=== PATIENT | female | born 1935 | race African-American/Black ===

== ENCOUNTER 2020-12-09 18:15 | Inpatient (IN) | payer BC, MEDICARE ==
[~2020-12-09] VITALS: Ht 157.5 cm; Wt 72.1 kg
[~2020-12-09 18:15] MED LIST: LISI-130 PO; LOSA-73 PO; PSYL3.4P PO
--- NOTE | 2020-12-09 21:16 | ED.ADGEN ---
Past Medical History Past Medical History: CVA, High Cholesterol, Hypertension Past Surgical History: Cholecystectomy, Tonsillectomy Smoking Status: Former Smoker Alcohol Use: None Drug Use: None General Adult EDM: Chief Complaint: ABDOMINAL PAIN HPI: HPI: Patient is a 85 year old female coming in for epigastric abdominal pain and vomiting. Patient states she vomited stomach acid but denies any bilious content. States she had a normal bowel movement this morning. Patient states she last ate around 11:30 AM, pain started suddenly at around 3 PM and has gotten worse. Describes the pain as sharp and nonradiating. Has not taken anything for the pain. Denies any fevers or cough, chest pain, or changes with urination. Patient is a both for [employer]. Has a history of an open cholecystectomy. Denies any prior history of bowel obstructions or GERD. Review of Systems: Review of Systems: All other systems within normal limits except for as noted in the HPI Current Medications: Current Medications Medications (Trade) Dose Ordered Sig/Amy Start Time Stop Time Status Last Admin Dose Admin Fentanyl Citrate (Fentanyl 2ml Vial) 75 mcg 1X ONCE 12/09/20 23:00 12/09/20 23:01 DC 12/09/20 23:28 75 MCG Info (CONTRAST GIVEN -- Rx MONITORING) 1 each PRN DAILY PRN 12/09/20 22:45 12/11/20 22:44 Iohexol (Omnipaque 300 Mg/ml) 75 ml 1X ONCE 12/09/20 23:00 12/09/20 23:01 DC 12/09/20 23:12 75 ML Multi-Ingredient Mouthwash/Gargle (Gi Cocktail) 20 ml 1X ONCE 12/09/20 21:30 12/09/20 21:31 DC 12/09/20 21:39 20 ML Ondansetron HCl (Zofran) 4 mg 1X ONCE 12/09/20 21:30 12/09/20 21:31 DC 12/09/20 21:38 4 MG Allergies: Allergies: Allergies Coded Allergies Type Severity Reaction Last Updated Verified Penicillins Allergy Intermediate 01/12/18 No influenza virus vaccine, specific Allergy Intermediate 01/12/18 No Physical Exam: PE: Constitutional: Well developed, well nourished, no acute distress, non-toxic appearance. [] HENT: Normocephalic, atraumatic, bilateral external ears normal, nose normal. [] Eyes: PERRLA, conjunctiva normal, no discharge. [] Neck: No rigidity, supple, no stridor. [] Cardiovascular: Regular rate and rhythm, brisk cap refill [] Lungs & Thorax: Non labored symmetric respirations, no tachypnea or respiratory distress [] Abdomen: Soft, nondistended, epigastric tenderness without guarding or rebound. Open cholecystectomy surgical scar in right upper quadrant without signs of hernia. Skin: Warm, dry, no erythema, no rash. [] Back: Unremarkable Extremities: No deformities, range of motion grossly intact, no lower extremity edema [] Neurologic: Alert and oriented X 3, no focal deficits noted. [] Psychologic: Affect normal, judgement normal, mood normal. [] Current Patient Data: Labs: Laboratory Tests Test 12/09/20 21:12 12/09/20 21:53 Urine Collection Type Void Urine Color Yellow Urine Clarity Clear Urine pH 6.0 (<5.0-8.0) Urine Specific [place] 1.010 (1.000-1.030) Urine Protein Negative mg/dL (NEG-TRACE) Urine Glucose (UA) Negative mg/dL (NEG) Urine Ketones (Stick) Negative mg/dL (NEG) Urine Blood Negative (NEG) Urine Nitrite Negative (NEG) Urine Bilirubin Negative (NEG) Urine Urobilinogen Dipstick 0.2 mg/dL (0.2 mg/dL) Urine Leukocyte Esterase Trace (NEG) Urine RBC Occ /HPF (0-2) Urine WBC 1-4 /HPF (0-4) Urine Squamous Epithelial Cells Many /LPF Urine Bacteria Moderate /HPF (0-FEW) Urine Mucus Slight /LPF White Blood Count 8.1 x10^3/uL (4.0-11.0) Red Blood Count 4.23 x10^6/uL (3.50-5.40) Hemoglobin 13.2 g/dL (12.0-15.5) Hematocrit 38.9 % (36.0-47.0) Mean Corpuscular Volume 92 fL (79-100) Mean Corpuscular Hemoglobin 31 pg (25-35) Mean Corpuscular Hemoglobin Concent 34 g/dL (31-37) Red Cell Distribution Width 13.9 % (11.5-14.5) Platelet Count 132 x10^3/uL (140-400) L Neutrophils (%) (Auto) 91 % (31-73) H Lymphocytes (%) (Auto) 7 % (24-48) L Monocytes (%) (Auto) 2 % (0-9) Eosinophils (%) (Auto) 0 % (0-3) Basophils (%) (Auto) 1 % (0-3) Neutrophils # (Auto) 7.3 x10^3/uL (1.8-7.7) Lymphocytes # (Auto) 0.5 x10^3/uL (1.0-4.8) L Monocytes # (Auto) 0.2 x10^3/uL (0.0-1.1) Eosinophils # (Auto) 0.0 x10^3/uL (0.0-0.7) Basophils # (Auto) 0.0 x10^3/uL (0.0-0.2) Segmented Neutrophils % 94 % (35-66) H Band Neutrophils % 3 % (0-9) Lymphocytes % 3 % (24-48) L Platelet Estimate Decreased (ADEQUATE) Sodium Level 138 mmol/L (136-145) Potassium Level 3.5 mmol/L (3.5-5.1) Chloride Level 102 mmol/L (98-107) Carbon Dioxide Level 26 mmol/L (21-32) Anion Gap 10 (6-14) Blood Urea Nitrogen 12 mg/dL (7-20) Creatinine 1.0 mg/dL (0.6-1.0) Estimated GFR (Cockcroft-Gault) 63.5 BUN/Creatinine Ratio 12 (6-20) Glucose Level 138 mg/dL (70-99) H Lactic Acid Level 1.8 mmol/L (0.4-2.0) Calcium Level 9.4 mg/dL (8.5-10.1) Total Bilirubin 0.4 mg/dL (0.2-1.0) Aspartate Amino Transferase (AST) 18 U/L (15-37) Alanine Aminotransferase (ALT) 20 U/L (14-59) Alkaline Phosphatase 58 U/L (46-116) Troponin I Quantitative 0.060 ng/mL (0.000-0.055) Total Protein 7.7 g/dL (6.4-8.2) Albumin 4.1 g/dL (3.4-5.0) Albumin/Globulin Ratio 1.1 (1.0-1.7) Lipase 101 U/L (73-393) Laboratory Tests 12/09/20 21:53 Laboratory Tests 12/09/20 21:53 Vital Signs: Vital Signs Date Time Temp Pulse Resp B/P (MAP) Pulse Ox O2 Delivery O2 Flow Rate FiO2 12/09/20 23:28 23 98 Room Air 12/09/20 20:44 98.7 86 218/88 (86) 98.7 EKG: EKG: Sinus rhythm, indeterminate axis, right bundle branch block, heart rate 90 bpm, no ST elevation or depression. [] Heart Score: C/O Chest Pain: No HEART Score for Chest Pain: HEART Score for Chest Pain Response (Comments) Value History Slighlty/Non-Suspicious 0 ECG Nonspecific Repolarizatio 1 Age > 65 2 Risk Factors 1 or 2 Risk Factors 1 Troponin >1-<3x Normal Limit 1 Total 5 Risk Factors: Risk Factors: DM, Current or recent (<one month) smoker, HTN, HLP, family history of CAD, obesity. Risk Scores: Score 0 - 3: 2.5% MACE over next 6 weeks - Discharge Home Score 4 - 6: 20.3% MACE over next 6 weeks - Admit for Clinical Observation Score 7 - 10: 72.7% MACE over next 6 weeks - Early Invasive Strategies Radiology/Procedures: Radiology/Procedures: [facility] [address] [place] [address] IMAGING REPORT Signed PATIENT: OMAR LYON ACCOUNT: [id number] : 1935 LOCATION: ER AGE: 85 SEX: F EXAM STATUS: REG ER ORD. PHYSICIAN: LINDA CROOKS MD REASON: vomiting, upper abd pain, OMNI 300, 75 ML IV PROCEDURE: CT ABD PELV W/ IV CONTRST ONLY Exam: CT abdomen/pelvis with intravenous contrast Indication: Vomiting and upper abdominal pain Comparison: None Technique: Helical CT imaging performed of the abdomen and pelvis after the intravenous administration of 75 mL Omnipaque 300 contrast. Sagittal and coronal reformats were obtained. One or more of the following individualized dose reduction techniques were utilized for this examination: 1. Automated exposure control 2. Adjustment of the mA and/or kV according to patient size 3. Use of iterative reconstruction technique. Findings: Lower chest: There is unchanged. Mm nodule in the right lower lobe (image 8, series 2). The heart is normal in size. There are mitral annulus calcifications. Liver: Normal. Gallbladder/Biliary Tree: Gallbladder is surgically absent. The common bile duct is prominent but tapers distally. No intrahepatic biliary duct dilatation. Pancreas: Normal. Spleen: Normal. Adrenal Glands: Normal. Kidneys/Ureters/Bladder: Kidneys are normal in size and enhance symmetrically. There is a 1 cm simple cyst in the superior right renal pole and a subcentimeter hypodensity in the left kidney. No hydronephrosis. Ureters are normal. There is a bladder diverticulum on the right. Reproductive Organs: The uterus is present. No adnexal mass. Stomach, small bowel, and colon: Stomach is normal. There are abnormal dilated loops of small bowel in the right hemiabdomen measuring up to 3.4 cm with wall thickening and surrounding inflammation. The terminal ileum is predominantly decompressed wall thickening. Possible transition point in the right mid abdomen (image 36 and 47, series 2). No pneumatosis.. There is fecal material into the distal small bowel. The colon right hemicolon is normal in caliber. Left hemicolon is predominantly decompressed. There is scattered colonic diverticulosis. Vasculature: No aortic aneurysm. There is moderate calcified aortoiliac a therosclerosis. Lymph Nodes: No lymphadenopathy. Peritoneum and retroperitoneum: There is trace ascites. No free air. Bones: No acute osseous abnormality. Mild degenerative disc disease in the lower lumbar spine. Mild osteoarthrosis hips. Other: Unchanged small fat-containing umbilical hernia. Impression: 1. Small bowel obstruction with possible transition point in the distal ileum. Minimal ascites. No free air or pneumatosis 2. Other chronic unchanged findings as above. Electronically signed by: Linda Castano MD (12/09/2020 11:32 PM) [id number] DICTATED and SIGNED BY: LINDA CASTANO MD DATE: 12/09/20 [id number] [] Course & Med Decision Making: Course & Med Decision Making Pertinent Labs and Imaging studies reviewed. (See chart for details) Patient made n.p.o. and discussed with surgeon Dr. Garza. Requesting NG tube. Multiple attempts at NG tube placement by nursing staff were unsuccessful, KUB shows looping of the NG tube. Patient refusing any further attempts. [] Dragon Disclaimer: Dragon Disclaimer: This electronic medical record was generated, in whole or in part, using a voice recognition dictation system. Departure Departure Impression: Primary Impression: SBO (small bowel obstruction) Disposition: ADMITTED INPATIENT Admitting Physician: MARLENE Condition: STABLE Referrals: MORE MEDLEY D.O. (PCP) LINDA CROOKS MD Dec 09, 2020 21:16
[2020-12-09 21:20] LABS: BILIRUBIN,URINE NEGATIVE (NEG); CLARITY,URINE CLEAR; COLOR,URINE YELLOW; NITRITE,URINE NEGATIVE (NEG); PROTEIN,URINE NEGATIVE (NEG-TRACE); UROBILINOGEN,URINE 0.2 mg/dL (0.2 mg/dL)
[2020-12-09] MEDS ORDERED: LIDO:MAALOX 1:1 20 ML SINGLE DOSE. SWSW ONE (21:30)
[2020-12-09] MEDS ORDERED: ONDANSETRON PF 4 MG/2 ML VIAL. IVP ONE (21:30)
[2020-12-09 21:39] LABS: BACTERIA,URINE MODERATE /HPF (0-FEW); RBC,URINE OCC /HPF (0-2)
[2020-12-09 22:09] LABS: BASO % 1 % (0-3); EOS % 0 % (0-3); HEMATOCRIT 38.9 % (36.0-47.0); HEMOGLOBIN 13.2 g/dL (12.0-15.5); LYMPH # 0.5 x10^3/uL (1.0-4.8); LYMPH % 7 % (24-48); MEAN CORPUSCULAR HEMOGLOBIN 31 pg (25-35); MEAN CORPUSCULAR HGB CONC 34 g/dL (31-37); MEAN CORPUSCULAR VOLUME 92 fL (79-100); MONO # 0.2 x10^3/uL (0.0-1.1); MONO % 2 % (0-9); NEUT # 7.3 x10^3/uL (1.8-7.7); NEUT % 91 % (31-73); PLATELET COUNT 132 x10^3/uL (140-400); RED BLOOD COUNT 4.23 x10^6/uL (3.50-5.40); RED CELL DISTRIBUTION WIDTH 13.9 % (11.5-14.5); WHITE BLOOD COUNT 8.1 x10^3/uL (4.0-11.0)
[2020-12-09 22:15] LABS: CALCIUM 9.4 mg/dL (8.5-10.1); GFR 63.5; POTASSIUM 3.5 mmol/L (3.5-5.1)
[2020-12-09 22:21] LABS: ALBUMIN 4.1 g/dL (3.4-5.0); ALBUMIN/GLOBULIN RATIO 1.1 (1.0-1.7); TOTAL BILIRUBIN 0.4 mg/dL (0.2-1.0); TOTAL PROTEIN 7.7 g/dL (6.4-8.2)
[2020-12-09] MEDS ORDERED: CONTRAST GIVEN. MC PRN (22:45)
[2020-12-09] MEDS ORDERED: IOHEXOL 300 MG/ML 100ML VIAL. IV ONE (23:00)
[2020-12-09] MEDS ORDERED: fentaNYL PF VIAL 100 MCG/2 ML VIAL IVP ONE (23:00)
--- NOTE | 2020-12-09 23:34 | RAD ---
Exam: CT abdomen/pelvis with intravenous contrast Indication: Vomiting and upper abdominal pain Comparison: None Technique: Helical CT imaging performed of the abdomen and pelvis after the intravenous administratio n of 75 mL Omnipaque 300 contrast. Sagittal and coronal reformats were obtained. One or more of the following individualized dose reduction techniques were utilized for this examinat ion: 1. Automated exposure control 2. Adjustment of the mA and/or kV according to patient size 3. Use of iterative reconstruction technique. Findings: Lower chest: There is unchanged. Mm nodule in the right lower lobe (image 8, series 2). The heart is normal in size. There are mitral annulus calcifications. Liver: Normal. Gallbladder/Biliary Tree: Gallbladder is surgically absent. The common bile duct is prominent but tap ers distally. No intrahepatic biliary duct dilatation. Pancreas: Normal. Spleen: Normal. Adrenal Glands: Normal. Kidneys/Ureters/Bladder: Kidneys are normal in size and enhance symmetrically. There is a 1 cm simple cyst in the superior right renal pole and a subcentimeter hypodensity in the left kidney. No hydrone phrosis. Ureters are normal. There is a bladder diverticulum on the right. Reproductive Organs: The uterus is present. No adnexal mass. Stomach, small bowel, and colon: Stomach is normal. There are abnormal dilated loops of small bowel i n the right hemiabdomen measuring up to 3.4 cm with wall thickening and surrounding inflammation. The terminal ileum is predominantly decompressed wall thickening. Possible transition point in the right mid abdomen (image 36 and 47, series 2). No pneumatosis.. There is fecal material into the distal sm all bowel. The colon right hemicolon is normal in caliber. Left hemicolon is predominantly decompress ed. There is scattered colonic diverticulosis. Vasculature: No aortic aneurysm. There is moderate calcified aortoiliac atherosclerosis. Lymph Nodes: No lymphadenopathy. Peritoneum and retroperitoneum: There is trace ascites. No free air. Bones: No acute osseous abnormality. Mild degenerative disc disease in the lower lumbar spine. Mild o steoarthrosis hips. Other: Unchanged small fat-containing umbilical hernia. Impression: 1. Small bowel obstruction with possible transition point in the distal ileum. Minimal ascites. No f ree air or pneumatosis 2. Other chronic unchanged findings as above. Electronically signed by: Linda Castano MD (12/09/2020 11:32 PM) [id number]
[2020-12-10] MEDS ORDERED: ACETAMINOPHEN 325 MG TABLET. PO PRN (00:30)
[2020-12-10] MEDS ORDERED: ONDANSETRON PF 4 MG/2 ML VIAL. IVP PRN (00:30)
--- NOTE | 2020-12-10 01:34 | EKG ---
[facility] [address] [place] [address] Test Date: 2020-12-09 Test Time: 21:23:05 Pat Name: OMAR LYON Department: Room: Gender: F [employer]: : 1935 Requested By: NEELA CROOKS Order Number: [id number] Reading MD: Measurements Intervals [place] Rate: 91 P: -24 WA: 142 QRS: -82 QRSD: 112 T: 47 QT: 374 QTc: 462 Interpretive Statements No previous ECG available for comparison
[2020-12-10] MEDS: IV NORMAL SALINE 1000ML BAG 1,000 ML IV SCH ×2 (01:47→14:20)
[2020-12-10 03:23] LABS: % BANDS 3 % (0-9); % LYMPHS 3 % (24-48); % SEGS 94 % (35-66)
[2020-12-10 03:24] LABS: PLT ESTIMATE DECREASED (ADEQUATE)
[2020-12-10] MEDS: fentaNYL PF VIAL 100 MCG/2 ML VIAL IVP PRN ×2 (04:15→09:47)
--- NOTE | 2020-12-10 05:54 | RAD ---
EXAM: XR ABDOMEN 1V 12/10/2020 2:30 AM CLINICAL INDICATION: NG tube placement COMPARISON: Chest radiograph 05/14/2016 The heart and mediastinum are normal. Lung bases are clear. Mild gaseous distention of bowel in the r ight upper quadrant. FINDINGS: An NG tube projects over the mid chest, likely coiled in the esophagus with the tip not vi sualized. Lung bases are clear. There is mild gaseous distention of bowel in the right upper quadrant . Heart is normal in size IMPRESSION: Coiled NG tube projecting over the chest, likely within the midesophagus but could poten tially be in the trachea. Recommend repositioning the tube and then confirming appropriate placement before use. Electronically signed by: Linda Castano MD (12/10/2020 5:51 AM) [id number]
--- NOTE | 2020-12-10 07:39 | PDOC1 ---
History and Physical Date of Admission Date of Admission DATE: 12/10/20 TIME: 07:22 Identification/Chief Complaint Chief Complaint Abdominal pain, nausea, vomiting Source Source: Chart review, Patient History of Present Illness History of Present Illness Patient is 85-year-old female with past medical history HTN, presents to the ED with complaints of abdominal pain, nausea, and vomiting. She reports epigastric abdominal pain, 10/10. She denies any associated fever, chest pain, or diarrh ea. States her last bowel movement was yesterday and she last ate yesterday morning. She has received both of reflexive COVID-19 vaccines. Labs on admission showed platelets 132, CBG 138, troponin 0.060, with repeat troponin 0.208. CT abdomen/pelvis showed small bowel obstruction with possible transition point in the distal ileum. She had NG tube placed in the ED. Will admit patient for medical management. Past Medical History Cardiovascular: HTN Pulmonary: No pertinent hx Endocrine: No pertinent hx Past Surgical History Past Surgical History: Cholecystectomy, Tonsillectomy Family History Family History: Hypertension Social History Smoke: No ALCOHOL: none Drugs: None Current Problem List Problem List Problems Medical Problems: (1) SBO (small bowel obstruction) Status: Acute Current Medications Current Medications Current Medications Ondansetron HCl (Zofran) 4 mg 1X ONCE IVP Last administered on 12/09/20at 21:38; Start 12/09/20 at 21:30; Stop 12/09/20 at 21:31; Status DC Multi-Ingredient Mouthwash/Gargle (Gi Cocktail) 20 ml 1X ONCE SWSW Last administered on 12/09/20at 21:39; Start 12/09/20 at 21:30; Stop 12/09/20 at 21:31; Status DC Fentanyl Citrate (Fentanyl 2ml Vial) 75 mcg 1X ONCE IVP Last administered on 12/09/20at 23:28; Start 12/09/20 at 23:00; Stop 12/09/20 at 23:01; Status DC Iohexol (Omnipaque 300 Mg/ml) 75 ml 1X ONCE IV Last administered on 12/09/20at 23:12; Start 12/09/20 at 23:00; Stop 12/09/20 at 23:01; Status DC Info (CONTRAST GIVEN -- Rx MONITORING) 1 each PRN DAILY PRN MC SEE COMMENTS; Start 12/09/20 at 22:45; Stop 12/11/20 at 22:44 Ondansetron HCl (Zofran) 4 mg PRN Q8HRS PRN IVP NAUSEA/VOMITING 1ST CHOICE Last administered on 12/10/20at 04:15; Start 12/10/20 at 00:30; Stop 12/11/20 at 00:29 Fentanyl Citrate (Fentanyl 2ml Vial) 50 mcg PRN Q1HR PRN IVP SEVERE PAIN 7-10 Last administered on 12/10/20at 04:15; Start 12/10/20 at 00:30; Stop 12/11/20 at 00:29 Sodium Chloride 1,000 ml @ 75 mls/hr [id number] IV Last administered on 12/10/20at 01:47; Start 12/10/20 at 01:00; Stop 12/11/20 at 00:59 Acetaminophen (Tylenol) 650 mg PRN Q4HRS PRN PO FEVER > 100.3'F; Start 12/10/20 at 00:30; Stop 12/11/20 at 00:29 Active Scripts Active Losartan Potassium 50 Mg Tablet 50 Mg PO DAILY 30 Days TO REPLACE LISINOPRIL Metamucil Fiber Singles Packet (Psyllium Husk/Aspartame) 3.4 Gm Powd.pack 1 Pkt PO DAILY 30 Days Allergies Allergies: Coded Allergies: Penicillins (Unverified Allergy, Intermediate, 01/12/18) influenza virus vaccine, specific (Unverified Allergy, Intermediate, 01/12/18) ROS Review of System GENERAL: No history of weight change, weakness or fevers. SKIN: No bruising, hair changes or rashes. EYES: No blurred, double or loss of vision. NOSE AND THROAT: No history of nosebleeds, hoarseness or sore throat. HEART: Denies chest pain, denies palpitations. LUNGS: Denies cough, hemoptysis, wheezing or shortness of breath. GASTROINTESTINAL: Abdominal pain, nausea, vomiting. Denies diarrhea. GENITOURINARY: Denies dysuria, frequency, urgency, hematuria. NEUROLOGIC: Denies history of numbness, tingling, tremor or weakness. PSYCHIATRIC: Denies anxiety, denies depression. ENDOCRINE: No history of heat or cold intolerance, polyuria or polydipsia. EXTREMITIES: Denies muscle weakness, joint pain, pain on walking or stiffness. Physical Exam Physical Exam General: Alert, Oriented X3, Cooperative, mild distress HEENT: PERRLA, EOMI. NG tube in place. Lungs: Clear to auscultation, Normal air movement Heart: RRR, no murmurs Cardiovascular: S1, S2 Abdomen: Decreased bowel sounds, Soft, epigastric tenderness to palpation Extremities: No clubbing, No cyanosis Skin: No rashes, No significant lesion Neuro: Normal speech, Normal tone, Sensation intact Psych/Mental Status: Mental status NL, Mood NL Vitals Vitals Vital Signs Date Time Temp Pulse Resp B/P (MAP) Pulse Ox O2 Delivery O2 Flow Rate FiO2 12/10/20 05:28 88 181/77 (111) 96 Room Air 12/10/20 04:15 20 12/09/20 20:44 98.7 98.7 Labs Labs Laboratory Tests Test 12/09/20 21:12 12/09/20 21:53 12/10/20 00:45 12/10/20 04:40 Urine Collection Type Void Urine Color Yellow Urine Clarity Clear Urine pH 6.0 (<5.0-8.0) Urine Specific [place] 1.010 (1.000-1.030) Urine Protein Negative mg/dL (NEG-TRACE) Urine Glucose (UA) Negative mg/dL (NEG) Urine Ketones (Stick) Negative mg/dL (NEG) Urine Blood Negative (NEG) Urine Nitrite Negative (NEG) Urine Bilirubin Negative (NEG) Urine Urobilinogen Dipstick 0.2 mg/dL (0.2 mg/dL) Urine Leukocyte Esterase Trace (NEG) Urine RBC Occ /HPF (0-2) Urine WBC 1-4 /HPF (0-4) Urine Squamous Epithelial Cells Many /LPF Urine Bacteria Moderate /HPF (0-FEW) Urine Mucus Slight /LPF White Blood Count 8.1 x10^3/uL (4.0-11.0) Red Blood Count 4.23 x10^6/uL (3.50-5.40) Hemoglobin 13.2 g/dL (12.0-15.5) Hematocrit 38.9 % (36.0-47.0) Mean Corpuscular Volume 92 fL (79-100) Mean Corpuscular Hemoglobin 31 pg (25-35) Mean Corpuscular Hemoglobin Concent 34 g/dL (31-37) Red Cell Distribution Width 13.9 % (11.5-14.5) Platelet Count 132 x10^3/uL (140-400) Neutrophils (%) (Auto) 91 % (31-73) Lymphocytes (%) (Auto) 7 % (24-48) Monocytes (%) (Auto) 2 % (0-9) Eosinophils (%) (Auto) 0 % (0-3) Basophils (%) (Auto) 1 % (0-3) Neutrophils # (Auto) 7.3 x10^3/uL (1.8-7.7) Lymphocytes # (Auto) 0.5 x10^3/uL (1.0-4.8) Monocytes # (Auto) 0.2 x10^3/uL (0.0-1.1) Eosinophils # (Auto) 0.0 x10^3/uL (0.0-0.7) Basophils # (Auto) 0.0 x10^3/uL (0.0-0.2) Segmented Neutrophils % 94 % (35-66) Band Neutrophils % 3 % (0-9) Lymphocytes % 3 % (24-48) Platelet Estimate Decreased (ADEQUATE) Sodium Level 138 mmol/L (136-145) Potassium Level 3.5 mmol/L (3.5-5.1) Chloride Level 102 mmol/L (98-107) Carbon Dioxide Level 26 mmol/L (21-32) Anion Gap 10 (6-14) Blood Urea Nitrogen 12 mg/dL (7-20) Creatinine 1.0 mg/dL (0.6-1.0) Estimated GFR (Cockcroft-Gault) 63.5 BUN/Creatinine Ratio 12 (6-20) Glucose Level 138 mg/dL (70-99) Lactic Acid Level 1.8 mmol/L (0.4-2.0) Calcium Level 9.4 mg/dL (8.5-10.1) Total Bilirubin 0.4 mg/dL (0.2-1.0) Aspartate Amino Transf (AST/SGOT) 18 U/L (15-37) Alanine Aminotransferase (ALT/SGPT) 20 U/L (14-59) Alkaline Phosphatase 58 U/L (46-116) Troponin I Quantitative 0.060 ng/mL (0.000-0.055) 0.208 ng/mL (0.000-0.055) Total Protein 7.7 g/dL (6.4-8.2) Albumin 4.1 g/dL (3.4-5.0) Albumin/Globulin Ratio 1.1 (1.0-1.7) Lipase 101 U/L (73-393) SARS-CoV-2 Antigen (Rapid) Negative (NEGATIVE) Laboratory Tests Test 12/09/20 21:12 12/09/20 21:53 12/10/20 00:45 12/10/20 04:40 Urine Collection Type Void Urine Color Yellow Urine Clarity Clear Urine pH 6.0 (<5.0-8.0) Urine Specific [place] 1.010 (1.000-1.030) Urine Protein Negative mg/dL (NEG-TRACE) Urine Glucose (UA) Negative mg/dL (NEG) Urine Ketones (Stick) Negative mg/dL (NEG) Urine Blood Negative (NEG) Urine Nitrite Negative (NEG) Urine Bilirubin Negative (NEG) Urine Urobilinogen Dipstick 0.2 mg/dL (0.2 mg/dL) Urine Leukocyte Esterase Trace (NEG) Urine RBC Occ /HPF (0-2) Urine WBC 1-4 /HPF (0-4) Urine Squamous Epithelial Cells Many /LPF Urine Bacteria Moderate /HPF (0-FEW) Urine Mucus Slight /LPF White Blood Count 8.1 x10^3/uL (4.0-11.0) Red Blood Count 4.23 x10^6/uL (3.50-5.40) Hemoglobin 13.2 g/dL (12.0-15.5) Hematocrit 38.9 % (36.0-47.0) Mean Corpuscular Volume 92 fL (79-100) Mean Corpuscular Hemoglobin 31 pg (25-35) Mean Corpuscular Hemoglobin Concent 34 g/dL (31-37) Red Cell Distribution Width 13.9 % (11.5-14.5) Platelet Count 132 x10^3/uL (140-400) Neutrophils (%) (Auto) 91 % (31-73) Lymphocytes (%) (Auto) 7 % (24-48) Monocytes (%) (Auto) 2 % (0-9) Eosinophils (%) (Auto) 0 % (0-3) Basophils (%) (Auto) 1 % (0-3) Neutrophils # (Auto) 7.3 x10^3/uL (1.8-7.7) Lymphocytes # (Auto) 0.5 x10^3/uL (1.0-4.8) Monocytes # (Auto) 0.2 x10^3/uL (0.0-1.1) Eosinophils # (Auto) 0.0 x10^3/uL (0.0-0.7) Basophils # (Auto) 0.0 x10^3/uL (0.0-0.2) Segmented Neutrophils % 94 % (35-66) Band Neutrophils % 3 % (0-9) Lymphocytes % 3 % (24-48) Platelet Estimate Decreased (ADEQUATE) Sodium Level 138 mmol/L (136-145) Potassium Level 3.5 mmol/L (3.5-5.1) Chloride Level 102 mmol/L (98-107) Carbon Dioxide Level 26 mmol/L (21-32) Anion Gap 10 (6-14) Blood Urea Nitrogen 12 mg/dL (7-20) Creatinine 1.0 mg/dL (0.6-1.0) Estimated GFR (Cockcroft-Gault) 63.5 BUN/Creatinine Ratio 12 (6-20) Glucose Level 138 mg/dL (70-99) Lactic Acid Level 1.8 mmol/L (0.4-2.0) Calcium Level 9.4 mg/dL (8.5-10.1) Total Bilirubin 0.4 mg/dL (0.2-1.0) Aspartate Amino Transf (AST/SGOT) 18 U/L (15-37) Alanine Aminotransferase (ALT/SGPT) 20 U/L (14-59) Alkaline Phosphatase 58 U/L (46-116) Troponin I Quantitative 0.060 ng/mL (0.000-0.055) 0.208 ng/mL (0.000-0.055) Total Protein 7.7 g/dL (6.4-8.2) Albumin 4.1 g/dL (3.4-5.0) Albumin/Globulin Ratio 1.1 (1.0-1.7) Lipase 101 U/L (73-393) SARS-CoV-2 Antigen (Rapid) Negative (NEGATIVE) Images Images PATIENT: OMAR LYON ACCOUNT: [id number] : 1935 LOCATION: ER AGE: 85 SEX: F EXAM STATUS: REG ER ORD. PHYSICIAN: NEELA CROOKS MD REASON: vomiting, upper abd pain, OMNI 300, 75 ML IV PROCEDURE: CT ABD PELV W/ IV CONTRST ONLY Exam: CT abdomen/pelvis with intravenous contrast Indication: Vomiting and upper abdominal pain Comparison: None Technique: Helical CT imaging performed of the abdomen and pelvis after the intravenous administration of 75 mL Omnipaque 300 contrast. Sagittal and coronal reformats were obtained. One or more of the following individualized dose reduction techniques were utilized for this examination: 1. Automated exposure control 2. Adjustment of the mA and/or kV according to patient size 3. Use of iterative reconstruction technique. Findings: Lower chest: There is unchanged. Mm nodule in the right lower lobe (image 8, series 2). The heart is normal in size. There are mitral annulus calcifications. Liver: Normal. Gallbladder/Biliary Tree: Gallbladder is surgically absent. The common bile duct is prominent but tapers distally. No intrahepatic biliary duct dilatation. Pancreas: Normal. Spleen: Normal. Adrenal Glands: Normal. Kidneys/Ureters/Bladder: Kidneys are normal in size and enhance symmetrically. There is a 1 cm simple cyst in the superior right renal pole and a subcentimeter hypodensity in the left kidney. No hydronephrosis. Ureters are normal. There is a bladder diverticulum on the right. Reproductive Organs: The uterus is present. No adnexal mass. Stomach, small bowel, and colon: Stomach is normal. There are abnormal dilated loops of small bowel in the right hemiabdomen measuring up to 3.4 cm with wall thickening and surrounding inflammation. The terminal ileum is predominantly decompressed wall thickening. Possible transition point in the right mid abdomen (image 36 and 47, series 2). No pneumatosis.. There is fecal material into the distal small bowel. The colon right hemicolon is normal in caliber. Left hemicolon is predominantly decompressed. There is scattered colonic diverticulosis. Vasculature: No aortic aneurysm. There is moderate calcified aortoiliac atherosclerosis. Lymph Nodes: No lymphadenopathy. Peritoneum and retroperitoneum: There is trace ascites. No free air. Bones: No acute osseous abnormality. Mild degenerative disc disease in the lower lumbar spine. Mild osteoarthrosis hips. Other: Unchanged small fat-containing umbilical hernia. Impression: 1. Small bowel obstruction with possible transition point in the distal ileum. Minimal ascites. No free air or pneumatosis 2. Other chronic unchanged findings as above. VTE Prophylaxis Ordered VTE Prophylaxis Devices: No VTE Pharmacological Prophylaxi: Yes Assessment/Plan Assessment/Plan SBO Elevated troponins Hypertensive urgency Hyperglycemia Plan: Consultation placed to general surgery NG tube placed in the ED Provide continuous IV fluids Bowel rest Initial troponin 0.060 with repeat 0.208; consultation placed to cardiology Will continue to trend troponin and obtain TTE; suspect elevated troponin secondary to hypertensive urgency and demand ischemia FEN - NPO; then advance diet as tolerated. PPX - Heparin FULL CODE Dispo - inpatient for above She names her goddaughter (Aundrea Samuel) as surrogate decision-maker Justifications for Admission Other Justification JERZY ALLEN MD Dec 10, 2020 07:39
--- NOTE | 2020-12-10 09:03 | PDOC2 ---
ARCHIE NULL ACCOUNT ADMINISTRATOR 12/10/20 0903: CONSULT Date of Consult Date of Consult DATE: 12/10/20 TIME: 08:59 Reason for Consult Reason for Consult: SBO Referring Physician Referring Physician: ER Identification/Chief Complaint Chief Complaint abdominal pain Source Source: Chart review, Patient History of Present Illness Reason for Visit: Some difficulty with memory Reports acute onset of pain to abdomen yesterday. Nausea. Reports typically has issues with diarrhea for many years, now with some constipation issues and taking laxatives at home. Does report some flatus this morning. Pain in abdomen is improved Attempted ng unsuccessful Past Medical History Cardiovascular: HTN Pulmonary: No pertinent hx Endocrine: No pertinent hx Past Surgical History Past Surgical History: Cholecystectomy, Tonsillectomy Family History Family History: Hypertension Social History No ALCOHOL: none Drugs: None Current Problem List Problem List Problems Medical Problems: (1) SBO (small bowel obstruction) Status: Acute Current Medications Current Medications Current Medications Ondansetron HCl (Zofran) 4 mg 1X ONCE IVP Last administered on 12/09/20at 21:38; Start 12/09/20 at 21:30; Stop 12/09/20 at 21:31; Status DC Multi-Ingredient Mouthwash/Gargle (Gi Cocktail) 20 ml 1X ONCE SWSW Last administered on 12/09/20at 21:39; Start 12/09/20 at 21:30; Stop 12/09/20 at 21:31; Status DC Fentanyl Citrate (Fentanyl 2ml Vial) 75 mcg 1X ONCE IVP Last administered on 12/09/20at 23:28; Start 12/09/20 at 23:00; Stop 12/09/20 at 23:01; Status DC Iohexol (Omnipaque 300 Mg/ml) 75 ml 1X ONCE IV Last administered on 12/09/20at 23:12; Start 12/09/20 at 23:00; Stop 12/09/20 at 23:01; Status DC Info (CONTRAST GIVEN -- Rx MONITORING) 1 each PRN DAILY PRN MC SEE COMMENTS; Start 12/09/20 at 22:45; Stop 12/11/20 at 22:44 Ondansetron HCl (Zofran) 4 mg PRN Q8HRS PRN IVP NAUSEA/VOMITING 1ST CHOICE Last administered on 12/10/20at 04:15; Start 12/10/20 at 00:30; Stop 12/11/20 at 00:29 Fentanyl Citrate (Fentanyl 2ml Vial) 50 mcg PRN Q1HR PRN IVP SEVERE PAIN 7-10 Last administered on 12/10/20at 04:15; Start 12/10/20 at 00:30; Stop 12/11/20 at 00:29 Sodium Chloride 1,000 ml @ 75 mls/hr [id number] IV Last administered on 12/10/20at 01:47; Start 12/10/20 at 01:00; Stop 12/11/20 at 00:59 Acetaminophen (Tylenol) 650 mg PRN Q4HRS PRN PO FEVER > 100.3'F; Start 12/10/20 at 00:30; Stop 12/11/20 at 00:29 Hydralazine HCl (Apresoline Inj) 10 mg PRN Q4HRS PRN IVP ELEVATED BP, SEE COMMENTS; Start 12/10/20 at 07:30 Active Scripts Active Losartan Potassium 50 Mg Tablet 50 Mg PO DAILY 30 Days TO REPLACE LISINOPRIL Metamucil Fiber Singles Packet (Psyllium Husk/Aspartame) 3.4 Gm Powd.pack 1 Pkt PO DAILY 30 Days Allergies Allergies: Coded Allergies: Penicillins (Unverified Allergy, Intermediate, 01/12/18) influenza virus vaccine, specific (Unverified Allergy, Intermediate, 01/12/18) ROS General: YES: Fatigue; No: Chills PSYCHOLOGICAL ROS: No: Anxiety, Depression Eyes: No Blurry vision, No Double vision HEENT: No: Heacaches, Hearing change Hematological and Lymphatic: No: Bleeding Problems, Blood Clots Respiratory: No: Cough, Shortness of breath Cardiovascular: No Chest Pain, No Palpitations Gastrointestinal: Yes Other (see hpi) Genitourinary: No Dysuria, No Hematuria Musculoskeletal: No Joint Pain, No Muscle Pain Neurological: No Impaired Coord/balance, No Numbness/Tingling Skin: No Pruritus, No Rash Physical Exam General: Alert, Cooperative, No acute distress HEENT: Atraumatic, PERRLA Lungs: Clear to auscultation, Normal air movement Heart: Regular rate, Normal S1, Normal S2 Abdomen: Soft, Other (ND, minimal TTP, amita scar ) Extremities: No clubbing, No cyanosis Skin: No rashes, No breakdown Neuro: Normal gait, Normal speech Psych/Mental Status: Mental status NL, Mood NL MUSCULOSKELETAL: No deformity, No swelling Vitals VITALS Vital Signs Date Time Temp Pulse Resp B/P (MAP) Pulse Ox O2 Delivery O2 Flow Rate FiO2 12/10/20 05:28 88 181/77 (111) 96 Room Air 12/10/20 04:15 20 12/09/20 20:44 98.7 98.7 Labs Labs Laboratory Tests Test 12/09/20 21:12 12/09/20 21:53 12/10/20 00:45 12/10/20 04:40 Urine Collection Type Void Urine Color Yellow Urine Clarity Clear Urine pH 6.0 (<5.0-8.0) Urine Specific [place] 1.010 (1.000-1.030) Urine Protein Negative mg/dL (NEG-TRACE) Urine Glucose (UA) Negative mg/dL (NEG) Urine Ketones (Stick) Negative mg/dL (NEG) Urine Blood Negative (NEG) Urine Nitrite Negative (NEG) Urine Bilirubin Negative (NEG) Urine Urobilinogen Dipstick 0.2 mg/dL (0.2 mg/dL) Urine Leukocyte Esterase Trace (NEG) Urine RBC Occ /HPF (0-2) Urine WBC 1-4 /HPF (0-4) Urine Squamous Epithelial Cells Many /LPF Urine Bacteria Moderate /HPF (0-FEW) Urine Mucus Slight /LPF White Blood Count 8.1 x10^3/uL (4.0-11.0) Red Blood Count 4.23 x10^6/uL (3.50-5.40) Hemoglobin 13.2 g/dL (12.0-15.5) Hematocrit 38.9 % (36.0-47.0) Mean Corpuscular Volume 92 fL (79-100) Mean Corpuscular Hemoglobin 31 pg (25-35) Mean Corpuscular Hemoglobin Concent 34 g/dL (31-37) Red Cell Distribution Width 13.9 % (11.5-14.5) Platelet Count 132 x10^3/uL (140-400) Neutrophils (%) (Auto) 91 % (31-73) Lymphocytes (%) (Auto) 7 % (24-48) Monocytes (%) (Auto) 2 % (0-9) Eosinophils (%) (Auto) 0 % (0-3) Basophils (%) (Auto) 1 % (0-3) Neutrophils # (Auto) 7.3 x10^3/uL (1.8-7.7) Lymphocytes # (Auto) 0.5 x10^3/uL (1.0-4.8) Monocytes # (Auto) 0.2 x10^3/uL (0.0-1.1) Eosinophils # (Auto) 0.0 x10^3/uL (0.0-0.7) Basophils # (Auto) 0.0 x10^3/uL (0.0-0.2) Segmented Neutrophils % 94 % (35-66) Band Neutrophils % 3 % (0-9) Lymphocytes % 3 % (24-48) Platelet Estimate Decreased (ADEQUATE) Sodium Level 138 mmol/L (136-145) Potassium Level 3.5 mmol/L (3.5-5.1) Chloride Level 102 mmol/L (98-107) Carbon Dioxide Level 26 mmol/L (21-32) Anion Gap 10 (6-14) Blood Urea Nitrogen 12 mg/dL (7-20) Creatinine 1.0 mg/dL (0.6-1.0) Estimated GFR (Cockcroft-Gault) 63.5 BUN/Creatinine Ratio 12 (6-20) Glucose Level 138 mg/dL (70-99) Lactic Acid Level 1.8 mmol/L (0.4-2.0) Calcium Level 9.4 mg/dL (8.5-10.1) Total Bilirubin 0.4 mg/dL (0.2-1.0) Aspartate Amino Transf (AST/SGOT) 18 U/L (15-37) Alanine Aminotransferase (ALT/SGPT) 20 U/L (14-59) Alkaline Phosphatase 58 U/L (46-116) Troponin I Quantitative 0.060 ng/mL (0.000-0.055) 0.208 ng/mL (0.000-0.055) Total Protein 7.7 g/dL (6.4-8.2) Albumin 4.1 g/dL (3.4-5.0) Albumin/Globulin Ratio 1.1 (1.0-1.7) Lipase 101 U/L (73-393) SARS-CoV-2 Antigen (Rapid) Negative (NEGATIVE) Laboratory Tests Test 12/09/20 21:12 12/09/20 21:53 12/10/20 00:45 12/10/20 04:40 Urine Collection Type Void Urine Color Yellow Urine Clarity Clear Urine pH 6.0 (<5.0-8.0) Urine Specific [place] 1.010 (1.000-1.030) Urine Protein Negative mg/dL (NEG-TRACE) Urine Glucose (UA) Negative mg/dL (NEG) Urine Ketones (Stick) Negative mg/dL (NEG) Urine Blood Negative (NEG) Urine Nitrite Negative (NEG) Urine Bilirubin Negative (NEG) Urine Urobilinogen Dipstick 0.2 mg/dL (0.2 mg/dL) Urine Leukocyte Esterase Trace (NEG) Urine RBC Occ /HPF (0-2) Urine WBC 1-4 /HPF (0-4) Urine Squamous Epithelial Cells Many /LPF Urine Bacteria Moderate /HPF (0-FEW) Urine Mucus Slight /LPF White Blood Count 8.1 x10^3/uL (4.0-11.0) Red Blood Count 4.23 x10^6/uL (3.50-5.40) Hemoglobin 13.2 g/dL (12.0-15.5) Hematocrit 38.9 % (36.0-47.0) Mean Corpuscular Volume 92 fL (79-100) Mean Corpuscular Hemoglobin 31 pg (25-35) Mean Corpuscular Hemoglobin Concent 34 g/dL (31-37) Red Cell Distribution Width 13.9 % (11.5-14.5) Platelet Count 132 x10^3/uL (140-400) Neutrophils (%) (Auto) 91 % (31-73) Lymphocytes (%) (Auto) 7 % (24-48) Monocytes (%) (Auto) 2 % (0-9) Eosinophils (%) (Auto) 0 % (0-3) Basophils (%) (Auto) 1 % (0-3) Neutrophils # (Auto) 7.3 x10^3/uL (1.8-7.7) Lymphocytes # (Auto) 0.5 x10^3/uL (1.0-4.8) Monocytes # (Auto) 0.2 x10^3/uL (0.0-1.1) Eosinophils # (Auto) 0.0 x10^3/uL (0.0-0.7) Basophils # (Auto) 0.0 x10^3/uL (0.0-0.2) Segmented Neutrophils % 94 % (35-66) Band Neutrophils % 3 % (0-9) Lymphocytes % 3 % (24-48) Platelet Estimate Decreased (ADEQUATE) Sodium Level 138 mmol/L (136-145) Potassium Level 3.5 mmol/L (3.5-5.1) Chloride Level 102 mmol/L (98-107) Carbon Dioxide Level 26 mmol/L (21-32) Anion Gap 10 (6-14) Blood Urea Nitrogen 12 mg/dL (7-20) Creatinine 1.0 mg/dL (0.6-1.0) Estimated GFR (Cockcroft-Gault) 63.5 BUN/Creatinine Ratio 12 (6-20) Glucose Level 138 mg/dL (70-99) Lactic Acid Level 1.8 mmol/L (0.4-2.0) Calcium Level 9.4 mg/dL (8.5-10.1) Total Bilirubin 0.4 mg/dL (0.2-1.0) Aspartate Amino Transf (AST/SGOT) 18 U/L (15-37) Alanine Aminotransferase (ALT/SGPT) 20 U/L (14-59) Alkaline Phosphatase 58 U/L (46-116) Troponin I Quantitative 0.060 ng/mL (0.000-0.055) 0.208 ng/mL (0.000-0.055) Total Protein 7.7 g/dL (6.4-8.2) Albumin 4.1 g/dL (3.4-5.0) Albumin/Globulin Ratio 1.1 (1.0-1.7) Lipase 101 U/L (73-393) SARS-CoV-2 Antigen (Rapid) Negative (NEGATIVE) Images Images SBO vs ileus--bowel rest, repeat xr in AM cardiac eval, elevated troponin BELINDA GUAJARDO MD 12/10/20 1313: CONSULT Assessment/Plan Assessment/Plan Pt seen and examined. Agree with Karen Null's note Pt has now gotten NGT with min output, but feels better abd soft, NTTP cont NGT and reevaluate in AM. Thanks for consult! ARCHIE NULL APRN Dec 10, 2020 09:03 BELINDA GUAJARDO MD Dec 10, 2020 13:13
[2020-12-10] MEDS: hydrALAZINE 20 MG/ML VIAL. IVP PRN ×2 (09:49→18:57)
[2020-12-10] MEDS ORDERED: MAG HYDROX/ALUMINUM HYD/SIMETH 30 ML ORAL.SUSP PO PRN (10:15)
[2020-12-10] MEDS ORDERED: MAGNESIUM HYDROXIDE 2,400 MG/30 ML ORAL.SUSP. PO PRN (10:15)
[2020-12-10] MEDS ORDERED: ZOLPIDEM 5 MG TABLET. PO PRN (10:15)
--- NOTE | 2020-12-10 11:37 | PDOC2 ---
AYE MCKINLEY BUSINESS OPERATIONS ANALYST 12/10/20 1137: CARDIAC CONSULT DATE OF CONSULT Date of Consult DATE: 12/10/20 TIME: 11:29 REASON FOR CONSULT Reason for Consult: Elevated troponin REFERRING PHYSICIAN Referring Physician: Dr. Cervantes SOURCE Source: Chart review, Patient HISTORY OF PRESENT ILLNESS HISTORY OF PRESENT ILLNESS This is an 85 yo female who presented secondary to abdominal pain and nausea/vomiting. CT abdomen/pelvis with concerns for SBO. Troponin noted to be elevated, which prompts this consult. Patient denies any chest pain, palpitations, dizziness, diaphoresis, or SOA. PAST MEDICAL HISTORY Cardiovascular: HTN, Hyperlipidemia CENTRAL NERVOUS SYSTEM: CVA Musculoskeletal: Osteoarthritis PAST SURGICAL HISTORY Past Surgical History: Cholecystectomy, Tonsillectomy FAMILY HISTORY Family History: Hypertension SOCIAL HISTORY Smoke: No ALCOHOL: none Drugs: None CURRENT MEDICATIONS CURRENT MEDICATIONS Current Medications Medications (Trade) Dose Ordered Sig/Amy Route PRN Reason Start Time Stop Time Status Last Admin Dose Admin Ondansetron HCl (Zofran) 4 mg 1X ONCE IVP 12/09/20 21:30 12/09/20 21:31 DC 12/09/20 21:38 Multi-Ingredient Mouthwash/Gargle (Gi Cocktail) 20 ml 1X ONCE SWSW 12/09/20 21:30 12/09/20 21:31 DC 12/09/20 21:39 Fentanyl Citrate (Fentanyl 2ml Vial) 75 mcg 1X ONCE IVP 12/09/20 23:00 12/09/20 23:01 DC 12/09/20 23:28 Iohexol (Omnipaque 300 Mg/ml) 75 ml 1X ONCE IV 12/09/20 23:00 12/09/20 23:01 DC 12/09/20 23:12 Ondansetron HCl (Zofran) 4 mg PRN Q8HRS PRN IVP NAUSEA/VOMITING 1ST CHOICE 12/10/20 00:30 12/11/20 00:29 12/10/20 04:15 Fentanyl Citrate (Fentanyl 2ml Vial) 50 mcg PRN Q1HR PRN IVP SEVERE PAIN 7-10 12/10/20 00:30 12/11/20 00:29 12/10/20 09:47 Sodium Chloride 1,000 ml @ 75 mls/hr [id number] IV 12/10/20 01:00 12/11/20 00:59 12/10/20 01:47 Hydralazine HCl (Apresoline Inj) 10 mg PRN Q4HRS PRN IVP ELEVATED BP, SEE COMMENTS 12/10/20 07:30 12/10/20 09:49 ALLERGIES ALLERGIES: Coded Allergies: Penicillins (Unverified Allergy, Intermediate, 01/12/18) influenza virus vaccine, specific (Unverified Allergy, Intermediate, 01/12/18) ROS Review of System 14 point ROS conducted with pertinent positives noted above in HPI PHYSICAL EXAM General: Alert, Oriented X3, Cooperative, No acute distress HEENT: Atraumatic, Other (NGT) Lungs: Clear to auscultation Heart: Regular rate Abdomen: Soft, No tenderness Extremities: No edema, Normal pulses Skin: No significant lesion Neuro: Normal speech, Sensation intact Psych/Mental Status: Mental status NL, Mood NL MUSCULOSKELETAL: Osteoarthritic changes both hands VITALS/I&O VITALS/I&O: Vital Signs Date Time Temp Pulse Resp B/P (MAP) Pulse Ox O2 Delivery O2 Flow Rate FiO2 12/10/20 09:49 92 204/89 12/10/20 09:30 97 Room Air 12/10/20 04:15 20 12/09/20 20:44 98.7 98.7 LABS Lab: Laboratory Tests Test 12/09/20 21:12 12/09/20 21:53 12/10/20 00:45 12/10/20 04:40 Urine Collection Type Void Urine Color Yellow Urine Clarity Clear Urine pH 6.0 (<5.0-8.0) Urine Specific [place] 1.010 (1.000-1.030) Urine Protein Negative mg/dL (NEG-TRACE) Urine Glucose (UA) Negative mg/dL (NEG) Urine Ketones (Stick) Negative mg/dL (NEG) Urine Blood Negative (NEG) Urine Nitrite Negative (NEG) Urine Bilirubin Negative (NEG) Urine Urobilinogen Dipstick 0.2 mg/dL (0.2 mg/dL) Urine Leukocyte Esterase Trace (NEG) Urine RBC Occ /HPF (0-2) Urine WBC 1-4 /HPF (0-4) Urine Squamous Epithelial Cells Many /LPF Urine Bacteria Moderate /HPF (0-FEW) Urine Mucus Slight /LPF White Blood Count 8.1 x10^3/uL (4.0-11.0) Red Blood Count 4.23 x10^6/uL (3.50-5.40) Hemoglobin 13.2 g/dL (12.0-15.5) Hematocrit 38.9 % (36.0-47.0) Mean Corpuscular Volume 92 fL (79-100) Mean Corpuscular Hemoglobin 31 pg (25-35) Mean Corpuscular Hemoglobin Concent 34 g/dL (31-37) Red Cell Distribution Width 13.9 % (11.5-14.5) Platelet Count 132 x10^3/uL (140-400) L Neutrophils (%) (Auto) 91 % (31-73) H Lymphocytes (%) (Auto) 7 % (24-48) L Monocytes (%) (Auto) 2 % (0-9) Eosinophils (%) (Auto) 0 % (0-3) Basophils (%) (Auto) 1 % (0-3) Neutrophils # (Auto) 7.3 x10^3/uL (1.8-7.7) Lymphocytes # (Auto) 0.5 x10^3/uL (1.0-4.8) L Monocytes # (Auto) 0.2 x10^3/uL (0.0-1.1) Eosinophils # (Auto) 0.0 x10^3/uL (0.0-0.7) Basophils # (Auto) 0.0 x10^3/uL (0.0-0.2) Segmented Neutrophils % 94 % (35-66) H Band Neutrophils % 3 % (0-9) Lymphocytes % 3 % (24-48) L Platelet Estimate Decreased (ADEQUATE) Sodium Level 138 mmol/L (136-145) Potassium Level 3.5 mmol/L (3.5-5.1) Chloride Level 102 mmol/L (98-107) Carbon Dioxide Level 26 mmol/L (21-32) Anion Gap 10 (6-14) Blood Urea Nitrogen 12 mg/dL (7-20) Creatinine 1.0 mg/dL (0.6-1.0) Estimated GFR (Cockcroft-Gault) 63.5 BUN/Creatinine Ratio 12 (6-20) Glucose Level 138 mg/dL (70-99) H Lactic Acid Level 1.8 mmol/L (0.4-2.0) Calcium Level 9.4 mg/dL (8.5-10.1) Total Bilirubin 0.4 mg/dL (0.2-1.0) Aspartate Amino Transferase (AST) 18 U/L (15-37) Alanine Aminotransferase (ALT) 20 U/L (14-59) Alkaline Phosphatase 58 U/L (46-116) Troponin I Quantitative 0.060 ng/mL (0.000-0.055) 0.208 ng/mL (0.000-0.055) Total Protein 7.7 g/dL (6.4-8.2) Albumin 4.1 g/dL (3.4-5.0) Albumin/Globulin Ratio 1.1 (1.0-1.7) Lipase 101 U/L (73-393) SARS-CoV-2 RNA (MICHELE) Negative (Negative) SARS-CoV-2 Antigen (Rapid) Negative (NEGATIVE) Laboratory Tests 12/09/20 21:53 Laboratory Tests 12/09/20 21:53 ASSESSMENT/PLAN ASSESSMENT/PLAN 1. Abdominal pain, nausea/vomiting. CT abdomen/pelvis with concerns for SBO. GS following 2. Mild troponin elevation; peak 0.2. Most probably type II, demand ischemia. CP free. EKG without significant acute changes as compared to previous 01/28 3. Hypertensive urgency; remains labile. 4. Hyperlipidemia 5. H/o CVA Recommendations Echo to assess LV systolic function Lipids Hydralazine, labetalol IV PRN Secondary prevention as able Supportive care Consider outpatient ischemic evaluation SHANNEN MORFIN MD 12/10/20 1707: CARDIAC CONSULT ASSESSMENT/PLAN ASSESSMENT/PLAN Patient seen and examined. I agree with our nurse practitioners assessment and plan. Abdominal pain, nausea/vomiting. CT abdomen/pelvis with concerns for SBO. The patient is feeling better. Surgery following. Mild troponin elevation; peak 0.2. Most probably type II, demand ischemia. CP free. EKG without significant acute changes as compared to previous 01/28. We will trend troponin. Echo pending. Hypertensive urgency; remains labile. Hydralazine, labetalol as needed. Hyperlipidemia. Checking statin. H/o CVA AYE MCKINLEY APRN Dec 10, 2020 11:37 SHANNEN MORFIN MD Dec 10, 2020 17:07
[2020-12-10] MEDS ORDERED: hydrALAZINE 20 MG/ML VIAL. IVP PRN (11:45)
[2020-12-10] MEDS: PSYLLIUM HUSK (SUGAR FREE) 1 PKT PACKET PO SCH (11:50)
[2020-12-10] MEDS: LOSARTAN POTASSIUM 50 MG TABLET. PO SCH (11:50)
[2020-12-10 11:55] LABS: CHOLESTEROL/HDL RATIO 4.8
--- NOTE | 2020-12-10 15:25 | CARD ---
MR#: [id number] Date of Study: 12/10/2020 Ordering Physician: JERZY ALLEN, Referring Physician: JERZY ALLEN Tech: Иван Albright [facility] APPROVED REPORT EXAM: Two-dimensional and M-mode echocardiogram with Doppler and color Doppler. Other Information Quality : AverageHR: 98bpm Rhythm : NSR INDICATION Elevated Troponin 2D DIMENSIONS Left Atrium(2D)3.0 (1.6-4.0cm)IVSd1.0 (0.7-1.1cm) LVDd4.0 (3.9-5.9cm)LVOT Diameter1.9 (1.8-2.4cm) PWd0.9 (0.7-1.1cm)LVDs2.4 (2.5-4.0cm) FS (%) 38.7 %SV48.0 ml LVEF(%)69.6 (>50%) Aortic Valve AoV Peak Hugo.210.2cm/sAoV VTI36.7cm AO Peak GR.17.7mmHgLVOT VTI 21.99cm AO Mean GR.9mmHg Mitral Valve MV E Jobjwdmf91.0cm/sMV E Peak Gr.4mmHg MV DECEL [id number] A Piimjoos913.0cm/s MV E Mean Gr.4mmHgE/A Ratio0.6 TDI Lateral E' P. V3.93cm/sMedial E' P. V3.99cm/s E/Lateral E'22.9E/Medial E'22.6 Tricuspid Valve TR P. [id number]/sTR Peak Gr.30mmHg LEFT VENTRICLE The left ventricle is normal size. There is normal left ventricular wall thickness. The left ventricu lar systolic function is normal, The ejection fraction is 60-65%. There is normal LV segmental wall m otion. Transmitral Doppler flow pattern is Grade I-abnormal relaxation pattern. No left ventricle thr ombus noted on this study. There is no ventricular septal defect visualized. There is no left ventric ular aneurysm. There is no mass noted in the left ventricle. RIGHT VENTRICLE The right ventricle is normal size. There is normal right ventricular wall thickness. The right ventr icular systolic function is normal. ATRIA The left atrium is moderately dilated. The right atrium size is normal. The interatrial septum is int act with no evidence for an atrial septal defect or patent foramen ovale as noted on 2-D or Doppler i maging. AORTIC VALVE The aortic valve is calcified but opens well. Doppler and Color Flow revealed no significant aortic r egurgitation. There is no significant aortic valvular stenosis. There is no aortic valvular vegetatio n. MITRAL VALVE Mitral annular calcification is moderate. There is no evidence of mitral valve prolapse. There is no mitral valve stenosis. Doppler and Color-flow revealed mild mitral regurgitation. TRICUSPID VALVE The tricuspid valve is normal in structure and function. Doppler and Color Flow revealed trace to mil d tricuspid regurgitation. There is no tricuspid valve prolapse or vegetation. There is no tricuspid valve stenosis. PULMONIC VALVE The pulmonary valve is normal in structure and function. Doppler and Color Flow revealed no pulmonic valvular regurgitation. There is no pulmonic valvular stenosis. GREAT VESSELS The aortic root is normal in size. The ascending aorta is normal in size. The pulmonary artery is nor mal. The IVC is normal in size and collapses >50% with inspiration. PERICARDIAL EFFUSION There is no pleural effusion. There is no evidence of significant pericardial effusion. Critical Notification Critical Value: No <Conclusion> The left ventricular systolic function is normal, The ejection fraction is 60-65%. There is normal LV segmental wall motion. Transmitral Doppler flow pattern is Grade I-abnormal relaxation pattern. Mild mitral regurgitation. Trace to mild tricuspid regurgitation. There is no evidence of significant pericardial effusion. Signed by : Dominic Flores, Electronically Approved : 12/10/2020 15:25:11
[2020-12-10] MEDS ORDERED: LABETALOL 20 MG/4 ML DISP.SYRIN. IVP PRN (15:45)
[2020-12-10 19:20] VITALS: BP 108/46
--- NOTE | 2020-12-10 19:25 | NUR ---
Received patient from ER to room 434. Admitting diagnosis: nausea, vomiting and abdominal pain x2 days. Ct Scan positive with minimal ascites. Patient is alert and oriented x4. Patient lives alone and ambulates with cane. Patient is allergic to PCN and influenza virus vaccine. patient has a 12 FR nasogastric tube in place with minimal output. Patient denies pain at this time. Resting comfortably. Will continue to monitor.
[2020-12-10] MEDS: HEPARIN for SUB-Q USE 5,000 UNIT/ML VIAL. SQ SCH (21:17)
[2020-12-10 23:24] VITALS: BP 139/52
[2020-12-11 02:36] VITALS: BP 154/58
--- NOTE | 2020-12-11 02:49 | NUR ---
Patient pulled NG out. Stated "I don't know why, I just did." Patient has had no output from NG since 1930. Will reassess later this am.
[2020-12-11] MEDS: MORPHINE SULFATE 4 MG/ML INJ. IV PRN (04:45)
[2020-12-11 07:00] VITALS: BP 155/58
[2020-12-11 07:49] LABS: BASO # 0.1 x10^3/uL (0.0-0.2); BASO % 1 % (0-3); EOS % 0 % (0-3); HEMATOCRIT 36.4 % (36.0-47.0); HEMOGLOBIN 12.2 g/dL (12.0-15.5); LYMPH # 0.9 x10^3/uL (1.0-4.8); LYMPH % 12 % (24-48); MEAN CORPUSCULAR HEMOGLOBIN 31 pg (25-35); MEAN CORPUSCULAR HGB CONC 34 g/dL (31-37); MEAN CORPUSCULAR VOLUME 92 fL (79-100); MONO # 0.4 x10^3/uL (0.0-1.1); MONO % 6 % (0-9); NEUT # 5.9 x10^3/uL (1.8-7.7); NEUT % 81 % (31-73); PLATELET COUNT 139 x10^3/uL (140-400); RED BLOOD COUNT 3.97 x10^6/uL (3.50-5.40); RED CELL DISTRIBUTION WIDTH 14.1 % (11.5-14.5); WHITE BLOOD COUNT 7.3 x10^3/uL (4.0-11.0)
[2020-12-11] MEDS: ASPIRIN ENTERIC COATED 81 MG TABLET.DR. PO SCH (08:00)
[2020-12-11 08:25] LABS: ALBUMIN 3.3 g/dL (3.4-5.0); ALBUMIN/GLOBULIN RATIO 0.9 (1.0-1.7); CALCIUM 9.1 mg/dL (8.5-10.1); CREATININE 1.1 mg/dL (0.6-1.0); GFR 56.9; TOTAL BILIRUBIN 0.7 mg/dL (0.2-1.0); TOTAL PROTEIN 6.8 g/dL (6.4-8.2)
[2020-12-11] MEDS: LOSARTAN POTASSIUM 50 MG TABLET. PO SCH (09:00)
[2020-12-11] MEDS: PSYLLIUM HUSK (SUGAR FREE) 1 PKT PACKET PO SCH (09:00)
[2020-12-11] MEDS: HEPARIN for SUB-Q USE 5,000 UNIT/ML VIAL. SQ SCH ×2 (09:00→21:49)
--- NOTE | 2020-12-11 09:34 | PDOC ---
ARCHIE NULL STERILISATION TECHNICIAN 12/11/20 0934: SURGICAL PROGRESS NOTE DATE: 12/11/20 TIME: 09:32 Subjective up in chair no flatus, some belching mild abdominal pain pulled ng out in sleep Vital Signs Vital Signs Date Time Temp Pulse Resp B/P (MAP) Pulse Ox O2 Delivery O2 Flow Rate FiO2 12/11/20 07:00 98.5 96 17 155/58 (90) 97 Room Air 98.5 I&O Intake and Output 12/11/20 07:00 Intake Total 575 ml Output Total 275 ml Balance 300 ml Intake Oral 200 ml Other 375 ml Output Urine Total 275 ml General: Alert, Oriented X3, Cooperative Abdomen: Soft, Other (ND, mild ttp , no guarding ) Labs Laboratory Tests Test 12/09/20 21:12 12/09/20 21:53 12/10/20 00:45 12/10/20 04:40 Urine Collection Type Void Urine Color Yellow Urine Clarity Clear Urine pH 6.0 (<5.0-8.0) Urine Specific [place] 1.010 (1.000-1.030) Urine Protein Negative mg/dL (NEG-TRACE) Urine Glucose (UA) Negative mg/dL (NEG) Urine Ketones (Stick) Negative mg/dL (NEG) Urine Blood Negative (NEG) Urine Nitrite Negative (NEG) Urine Bilirubin Negative (NEG) Urine Urobilinogen Dipstick 0.2 mg/dL (0.2 mg/dL) Urine Leukocyte Esterase Trace (NEG) Urine RBC Occ /HPF (0-2) Urine WBC 1-4 /HPF (0-4) Urine Squamous Epithelial Cells Many /LPF Urine Bacteria Moderate /HPF (0-FEW) Urine Mucus Slight /LPF White Blood Count 8.1 x10^3/uL (4.0-11.0) Red Blood Count 4.23 x10^6/uL (3.50-5.40) Hemoglobin 13.2 g/dL (12.0-15.5) Hematocrit 38.9 % (36.0-47.0) Mean Corpuscular Volume 92 fL (79-100) Mean Corpuscular Hemoglobin 31 pg (25-35) Mean Corpuscular Hemoglobin Concent 34 g/dL (31-37) Red Cell Distribution Width 13.9 % (11.5-14.5) Platelet Count 132 x10^3/uL (140-400) Neutrophils (%) (Auto) 91 % (31-73) Lymphocytes (%) (Auto) 7 % (24-48) Monocytes (%) (Auto) 2 % (0-9) Eosinophils (%) (Auto) 0 % (0-3) Basophils (%) (Auto) 1 % (0-3) Neutrophils # (Auto) 7.3 x10^3/uL (1.8-7.7) Lymphocytes # (Auto) 0.5 x10^3/uL (1.0-4.8) Monocytes # (Auto) 0.2 x10^3/uL (0.0-1.1) Eosinophils # (Auto) 0.0 x10^3/uL (0.0-0.7) Basophils # (Auto) 0.0 x10^3/uL (0.0-0.2) Segmented Neutrophils % 94 % (35-66) Band Neutrophils % 3 % (0-9) Lymphocytes % 3 % (24-48) Platelet Estimate Decreased (ADEQUATE) Sodium Level 138 mmol/L (136-145) Potassium Level 3.5 mmol/L (3.5-5.1) Chloride Level 102 mmol/L (98-107) Carbon Dioxide Level 26 mmol/L (21-32) Anion Gap 10 (6-14) Blood Urea Nitrogen 12 mg/dL (7-20) Creatinine 1.0 mg/dL (0.6-1.0) Estimated GFR (Cockcroft-Gault) 63.5 BUN/Creatinine Ratio 12 (6-20) Glucose Level 138 mg/dL (70-99) Lactic Acid Level 1.8 mmol/L (0.4-2.0) Calcium Level 9.4 mg/dL (8.5-10.1) Total Bilirubin 0.4 mg/dL (0.2-1.0) Aspartate Amino Transf (AST/SGOT) 18 U/L (15-37) Alanine Aminotransferase (ALT/SGPT) 20 U/L (14-59) Alkaline Phosphatase 58 U/L (46-116) Troponin I Quantitative 0.060 ng/mL (0.000-0.055) 0.208 ng/mL (0.000-0.055) Total Protein 7.7 g/dL (6.4-8.2) Albumin 4.1 g/dL (3.4-5.0) Albumin/Globulin Ratio 1.1 (1.0-1.7) Lipase 101 U/L (73-393) SARS-CoV-2 RNA (MICHELE) Negative (Negative) SARS-CoV-2 Antigen (Rapid) Negative (NEGATIVE) Triglycerides Level 55 mg/dL (0-150) Cholesterol Level 408 mg/dL (0-200) LDL Cholesterol, Calculated 312 mg/dL (0-100) VLDL Cholesterol, Calculated 11 mg/dL (0-40) Non-HDL Cholesterol Calculated 323 mg/dL (0-129) HDL Cholesterol 85 mg/dL (40-60) Cholesterol/HDL Ratio 4.8 Test 12/10/20 11:05 12/11/20 07:15 Troponin I Quantitative 0.200 ng/mL (0.000-0.055) White Blood Count 7.3 x10^3/uL (4.0-11.0) Red Blood Count 3.97 x10^6/uL (3.50-5.40) Hemoglobin 12.2 g/dL (12.0-15.5) Hematocrit 36.4 % (36.0-47.0) Mean Corpuscular Volume 92 fL (79-100) Mean Corpuscular Hemoglobin 31 pg (25-35) Mean Corpuscular Hemoglobin Concent 34 g/dL (31-37) Red Cell Distribution Width 14.1 % (11.5-14.5) Platelet Count 139 x10^3/uL (140-400) Neutrophils (%) (Auto) 81 % (31-73) Lymphocytes (%) (Auto) 12 % (24-48) Monocytes (%) (Auto) 6 % (0-9) Eosinophils (%) (Auto) 0 % (0-3) Basophils (%) (Auto) 1 % (0-3) Neutrophils # (Auto) 5.9 x10^3/uL (1.8-7.7) Lymphocytes # (Auto) 0.9 x10^3/uL (1.0-4.8) Monocytes # (Auto) 0.4 x10^3/uL (0.0-1.1) Eosinophils # (Auto) 0.0 x10^3/uL (0.0-0.7) Basophils # (Auto) 0.1 x10^3/uL (0.0-0.2) Sodium Level 137 mmol/L (136-145) Potassium Level 4.0 mmol/L (3.5-5.1) Chloride Level 102 mmol/L (98-107) Carbon Dioxide Level 27 mmol/L (21-32) Anion Gap 8 (6-14) Blood Urea Nitrogen 15 mg/dL (7-20) Creatinine 1.1 mg/dL (0.6-1.0) Estimated GFR (Cockcroft-Gault) 56.9 BUN/Creatinine Ratio 14 (6-20) Glucose Level 120 mg/dL (70-99) Calcium Level 9.1 mg/dL (8.5-10.1) Total Bilirubin 0.7 mg/dL (0.2-1.0) Aspartate Amino Transf (AST/SGOT) 27 U/L (15-37) Alanine Aminotransferase (ALT/SGPT) 32 U/L (14-59) Alkaline Phosphatase 43 U/L (46-116) Total Protein 6.8 g/dL (6.4-8.2) Albumin 3.3 g/dL (3.4-5.0) Albumin/Globulin Ratio 0.9 (1.0-1.7) Laboratory Tests Test 12/10/20 11:05 12/11/20 07:15 Troponin I Quantitative 0.200 ng/mL (0.000-0.055) White Blood Count 7.3 x10^3/uL (4.0-11.0) Red Blood Count 3.97 x10^6/uL (3.50-5.40) Hemoglobin 12.2 g/dL (12.0-15.5) Hematocrit 36.4 % (36.0-47.0) Mean Corpuscular Volume 92 fL (79-100) Mean Corpuscular Hemoglobin 31 pg (25-35) Mean Corpuscular Hemoglobin Concent 34 g/dL (31-37) Red Cell Distribution Width 14.1 % (11.5-14.5) Platelet Count 139 x10^3/uL (140-400) Neutrophils (%) (Auto) 81 % (31-73) Lymphocytes (%) (Auto) 12 % (24-48) Monocytes (%) (Auto) 6 % (0-9) Eosinophils (%) (Auto) 0 % (0-3) Basophils (%) (Auto) 1 % (0-3) Neutrophils # (Auto) 5.9 x10^3/uL (1.8-7.7) Lymphocytes # (Auto) 0.9 x10^3/uL (1.0-4.8) Monocytes # (Auto) 0.4 x10^3/uL (0.0-1.1) Eosinophils # (Auto) 0.0 x10^3/uL (0.0-0.7) Basophils # (Auto) 0.1 x10^3/uL (0.0-0.2) Sodium Level 137 mmol/L (136-145) Potassium Level 4.0 mmol/L (3.5-5.1) Chloride Level 102 mmol/L (98-107) Carbon Dioxide Level 27 mmol/L (21-32) Anion Gap 8 (6-14) Blood Urea Nitrogen 15 mg/dL (7-20) Creatinine 1.1 mg/dL (0.6-1.0) Estimated GFR (Cockcroft-Gault) 56.9 BUN/Creatinine Ratio 14 (6-20) Glucose Level 120 mg/dL (70-99) Calcium Level 9.1 mg/dL (8.5-10.1) Total Bilirubin 0.7 mg/dL (0.2-1.0) Aspartate Amino Transf (AST/SGOT) 27 U/L (15-37) Alanine Aminotransferase (ALT/SGPT) 32 U/L (14-59) Alkaline Phosphatase 43 U/L (46-116) Total Protein 6.8 g/dL (6.4-8.2) Albumin 3.3 g/dL (3.4-5.0) Albumin/Globulin Ratio 0.9 (1.0-1.7) Problem List Problems Medical Problems: (1) SBO (small bowel obstruction) Status: Acute Assessment/Plan xr pending, reviewed films--mild distention on loops r abdomen bowel rest, without ng would not sbft Justicifation of Admission Dx: Justifications for Admission: Justification of Admission Dx: Yes Comments: BELINDA Castro MD 12/11/20 8525: SURGICAL PROGRESS NOTE Assessment/Plan Pt seen and examined. Agree with Ms. Null's note Pt with c/o mild abd pain, no flatus, mild nausea abd soft, min TTP will cont bowel rest and close observation. ARCHIE NULL APRN Dec 11, 2020 09:34 BELINDA GUAJARDO MD Dec 11, 2020 18:55
--- NOTE | 2020-12-11 10:31 | NUR ---
SW following. Discussed with RN, pt from home alone, room air, NPO, gets around fine. COVID-19 negative. Pt pulled out her NG. Abdominal series today. Surgery and Cardiology following. SW will continue to follow.
[2020-12-11 11:00] VITALS: BP 136/73
--- NOTE | 2020-12-11 11:04 | PDOC ---
AYE MCKINLEY CHIEF WHEELAGE CLERK 12/11/20 1104: CARDIO Progress Notes Date and Time Date of Service 12/11/20 Time of Evaluation 1120 Subjective Subjective: No Chest Pain, No shortness of breath, No Palpitations, Other (intermittent abdominal pain, pulled out NGT and does not want replaced ) Vitals Vitals Vital Signs Date Time Temp Pulse Resp B/P (MAP) Pulse Ox O2 Delivery O2 Flow Rate FiO2 12/11/20 07:00 98.5 96 17 155/58 (90) 97 Room Air 98.5 Weight Weight [ ] Input and Output Intake and Output Intake and Output 12/11/20 07:00 Intake Total 575 ml Output Total 275 ml Balance 300 ml Intake Oral 200 ml Other 375 ml Output Urine Total 275 ml Laboratory Labs Laboratory Tests Test 12/10/20 11:05 12/11/20 07:15 Troponin I Quantitative 0.200 ng/mL (0.000-0.055) White Blood Count 7.3 x10^3/uL (4.0-11.0) Red Blood Count 3.97 x10^6/uL (3.50-5.40) Hemoglobin 12.2 g/dL (12.0-15.5) Hematocrit 36.4 % (36.0-47.0) Mean Corpuscular Volume 92 fL (79-100) Mean Corpuscular Hemoglobin 31 pg (25-35) Mean Corpuscular Hemoglobin Concent 34 g/dL (31-37) Red Cell Distribution Width 14.1 % (11.5-14.5) Platelet Count 139 x10^3/uL (140-400) Neutrophils (%) (Auto) 81 % (31-73) Lymphocytes (%) (Auto) 12 % (24-48) Monocytes (%) (Auto) 6 % (0-9) Eosinophils (%) (Auto) 0 % (0-3) Basophils (%) (Auto) 1 % (0-3) Neutrophils # (Auto) 5.9 x10^3/uL (1.8-7.7) Lymphocytes # (Auto) 0.9 x10^3/uL (1.0-4.8) Monocytes # (Auto) 0.4 x10^3/uL (0.0-1.1) Eosinophils # (Auto) 0.0 x10^3/uL (0.0-0.7) Basophils # (Auto) 0.1 x10^3/uL (0.0-0.2) Sodium Level 137 mmol/L (136-145) Potassium Level 4.0 mmol/L (3.5-5.1) Chloride Level 102 mmol/L (98-107) Carbon Dioxide Level 27 mmol/L (21-32) Anion Gap 8 (6-14) Blood Urea Nitrogen 15 mg/dL (7-20) Creatinine 1.1 mg/dL (0.6-1.0) Estimated GFR (Cockcroft-Gault) 56.9 BUN/Creatinine Ratio 14 (6-20) Glucose Level 120 mg/dL (70-99) Calcium Level 9.1 mg/dL (8.5-10.1) Total Bilirubin 0.7 mg/dL (0.2-1.0) Aspartate Amino Transf (AST/SGOT) 27 U/L (15-37) Alanine Aminotransferase (ALT/SGPT) 32 U/L (14-59) Alkaline Phosphatase 43 U/L (46-116) Total Protein 6.8 g/dL (6.4-8.2) Albumin 3.3 g/dL (3.4-5.0) Albumin/Globulin Ratio 0.9 (1.0-1.7) Microbiology Micro Microbiology 12/09/20 Urine Culture - Final, Complete Physical Exam HEENT: Neck Supple W Full Motion Chest: Symmetric LUNGS: Clear to Auscultation Heart: RRR (heart tones regular. not on tele) Abdomen: Other (soft, mild tenderness) Extremities: No Edema Neurology: alert, oriented, follow commands Assessment Assessment 1. Abdominal pain, nausea/vomiting. CT abdomen/pelvis with concerns for SBO. GS following 2. Mild troponin elevation; peak 0.2. Most probably type II, demand ischemia. CP free. EKG without significant acute changes as compared to previous 01/28. Echo with preserved LV systolic function 3. Hypertensive urgency; now controlled 4. Hyperlipidemia 5. H/o CVA Recommendations Secondary prevention as able Follow GS recs Supportive care Consider outpatient ischemic evaluation Justicifation of Admission Dx: Justifications for Admission: Justification of Admission Dx: Yes SHANNEN MORFIN MD 12/11/20 1633: CARDIO Progress Notes Assessment Assessment Patient seen and examine I agree with our nurse practitioners assessment and plan. Abdominal pain, nausea/vomiting. CT abdomen/pelvis with concerns for SBO. GS following. Feeling better. Mild troponin elevation; peak 0.2. Most probably type II, demand ischemia. CP free. EKG without significant acute changes as compared to previous 01/28. Echo with preserved LV systolic function. Probable future outpatient ischemic evaluation. Hypertensive urgency; now controlled Hyperlipidemia AYE MCKINLEY APRN Dec 11, 2020 11:04 SHANNEN MORFIN MD Dec 11, 2020 16:33
--- NOTE | 2020-12-11 12:52 | PDOC ---
[facility] PROGRESS NOTE Date of Service DOS: DATE: 12/11/20 TIME: 12:45 Chief Complaint Chief Complaint A/P: SBO Elevated troponins Hypertensive urgency Hyperglycemia History of Present Illness History of Present Illness Patient is 85-year-old female with past medical history HTN, presents to the ED with complaints of abdominal pain, nausea, and vomiting. She reports epigastric abdominal pain, 10/10. She denies any associated fever, chest pain, or diarrhea. States her last bowel movement was yesterday and she last ate yesterday morning. She has received both of reflexive COVID-19 vaccines. Labs on admission showed platelets 132, BG 138, troponin 0.060, with repeat troponin 0.208, trended down to 0.200. CT abdomen/pelvis showed small bowel obstruction with possible transition point in the distal ileum. She had NG tube placed in the ED. Admitted patient for medical management. 12/11: Pulled out NGT overnight. She is up in the chair, not passing flatus, no BM. Pain 2/10. Vitals/I&O Vitals/I&O: Vital Signs Date Time Temp Pulse Resp B/P (MAP) Pulse Ox O2 Delivery O2 Flow Rate FiO2 12/11/20 11:00 98.7 100 17 136/73 (94) 97 Room Air 98.7 I & O 12/10/20 12/10/20 12/11/20 15:00 23:00 07:00 Intake Total 0 ml 575 ml Output Total 0 ml 275 ml Balance 0 ml 300 ml Physical Exam General: Alert, Oriented X3, Cooperative Heart: Regular rate Abdomen: Soft, Other (ND, mild ttp , no guarding ) Extremities: No edema, Normal pulses Skin: No significant lesion Labs Labs: Laboratory Tests Test 12/11/20 07:15 White Blood Count 7.3 x10^3/uL (4.0-11.0) Red Blood Count 3.97 x10^6/uL (3.50-5.40) Hemoglobin 12.2 g/dL (12.0-15.5) Hematocrit 36.4 % (36.0-47.0) Mean Corpuscular Volume 92 fL (79-100) Mean Corpuscular Hemoglobin 31 pg (25-35) Mean Corpuscular Hemoglobin Concent 34 g/dL (31-37) Red Cell Distribution Width 14.1 % (11.5-14.5) Platelet Count 139 x10^3/uL (140-400) Neutrophils (%) (Auto) 81 % (31-73) Lymphocytes (%) (Auto) 12 % (24-48) Monocytes (%) (Auto) 6 % (0-9) Eosinophils (%) (Auto) 0 % (0-3) Basophils (%) (Auto) 1 % (0-3) Neutrophils # (Auto) 5.9 x10^3/uL (1.8-7.7) Lymphocytes # (Auto) 0.9 x10^3/uL (1.0-4.8) Monocytes # (Auto) 0.4 x10^3/uL (0.0-1.1) Eosinophils # (Auto) 0.0 x10^3/uL (0.0-0.7) Basophils # (Auto) 0.1 x10^3/uL (0.0-0.2) Sodium Level 137 mmol/L (136-145) Potassium Level 4.0 mmol/L (3.5-5.1) Chloride Level 102 mmol/L (98-107) Carbon Dioxide Level 27 mmol/L (21-32) Anion Gap 8 (6-14) Blood Urea Nitrogen 15 mg/dL (7-20) Creatinine 1.1 mg/dL (0.6-1.0) Estimated GFR (Cockcroft-Gault) 56.9 BUN/Creatinine Ratio 14 (6-20) Glucose Level 120 mg/dL (70-99) Calcium Level 9.1 mg/dL (8.5-10.1) Total Bilirubin 0.7 mg/dL (0.2-1.0) Aspartate Amino Transf (AST/SGOT) 27 U/L (15-37) Alanine Aminotransferase (ALT/SGPT) 32 U/L (14-59) Alkaline Phosphatase 43 U/L (46-116) Total Protein 6.8 g/dL (6.4-8.2) Albumin 3.3 g/dL (3.4-5.0) Albumin/Globulin Ratio 0.9 (1.0-1.7) Assessment and Plan Assessmemt and Plan Problems Medical Problems: (1) SBO (small bowel obstruction) Status: Acute Comment Review of Relevant I have reviewed the following items mekhi (where applicable) has been applied. Medications: Current Medications Medications (Trade) Dose Ordered Sig/Amy Route PRN Reason Start Time Stop Time Status Last Admin Dose Admin Heparin Sodium (Porcine) (Heparin Sodium) 5,000 unit Q12HR SQ 12/10/20 21:00 12/10/20 21:17 Justifications for Admission Other Justification JULISSA LERMA MD Dec 11, 2020 12:52
--- NOTE | 2020-12-11 14:11 | RAD ---
2 view abdominal series Clinical indications: Small bowel obstruction. COMPARISON: December 10, 2020. FINDINGS/ IMPRESSION: Again seen are dilated loops of small bowel containing differential air-fluid levels with a relative paucity of gas within the colon consistent with a small bowel obstruction. This is unchan ged. No free intraperitoneal air is seen. Electronically signed by: Lizandro Hayes MD (12/11/2020 2:09 PM) [id number]
[2020-12-11 15:00] VITALS: BP 176/81
[2020-12-11 19:30] VITALS: BP 144/61
[2020-12-11 23:32] VITALS: BP 143/64
[2020-12-12] MEDS: MORPHINE SULFATE 4 MG/ML INJ. IV PRN ×3 (00:49→16:13)
[2020-12-12 03:03] VITALS: BP 141/62
[2020-12-12 07:00] VITALS: BP 177/65
[2020-12-12] MEDS: ASPIRIN ENTERIC COATED 81 MG TABLET.DR. PO SCH (08:00)
[2020-12-12] MEDS: ONDANSETRON PF 4 MG/2 ML VIAL. IVP PRN ×2 (08:33→18:15)
[2020-12-12] MEDS: LOSARTAN POTASSIUM 50 MG TABLET. PO SCH (09:00)
[2020-12-12] MEDS: HEPARIN for SUB-Q USE 5,000 UNIT/ML VIAL. SQ SCH ×2 (09:00→20:37)
[2020-12-12] MEDS: PSYLLIUM HUSK (SUGAR FREE) 1 PKT PACKET PO SCH (09:00)
--- NOTE | 2020-12-12 09:49 | PDOC ---
[facility] PROGRESS NOTE Date of Service DOS: DATE: 12/12/20 TIME: 09:48 Chief Complaint Chief Complaint A/P: SBO - slow to improve Elevated troponins - likely demand ischemia. echo with preserved EF Hypertensive urgency - improved Hyperglycemia HLD - LDL extremely high, would be good candidate for PCSK9 inhibitor injections outpatient Abdominal pain, nausea/vomiting. CT abdomen/pelvis with concerns for SBO. GS following H/o CVA FEN - NPO History of Present Illness History of Present Illness Patient is 85-year-old female with past medical history HTN, presents to the ED with complaints of abdominal pain, nausea, and vomiting. She reports epigastric abdominal pain, 10/10. She denies any associated fever, chest pain, or diarrhea. States her last bowel movement was yesterday and she last ate yesterday morning. She has received both of reflexive COVID-19 vaccines. Labs on admission showed platelets 132, BG 138, troponin 0.060, with repeat troponin 0.208, trended down to 0.200. CT abdomen/pelvis showed small bowel obstruction with possible transition point in the distal ileum. She had NG tube placed in the ED. Admitted patient for medical management. 12/11: Pulled out NGT overnight. She is up in the chair, not passing flatus, no BM. Pain 2/10. Pain. 10. Not passing flatus belching frequently. No further emesis at this time. No chest pain or shortness of breath. Advised we will start IV nutrition today. Vitals/I&O Vitals/I&O: Vital Signs Date Time Temp Pulse Resp B/P (MAP) Pulse Ox O2 Delivery O2 Flow Rate FiO2 12/12/20 08:33 Room Air 12/12/20 07:00 98.5 84 18 177/65 (102) 97 98.5 I & O 12/11/20 12/11/20 12/12/20 15:00 23:00 07:00 Intake Total 0 ml 0 ml 900 ml Balance 0 ml 0 ml 900 ml Physical Exam General: Alert, Oriented X3, Cooperative Heart: Regular rate Abdomen: Soft, Other (ND, mild ttp , no guarding ) Extremities: No edema, Normal pulses Skin: No significant lesion Assessment and Plan Assessmemt and Plan Problems Medical Problems: (1) SBO (small bowel obstruction) Status: Acute Comment Review of Relevant I have reviewed the following items mekhi (where applicable) has been applied. Justifications for Admission Other Justification JULISSA LERMA MD Dec 12, 2020 09:49
--- NOTE | 2020-12-12 10:20 | NUR ---
SW following. Discussed with RN, pt from home alone, room air, NPO, gets around, COVID-19 negative. Pt pulled out NG tube, and is refusing to have it replaced. Surgery following. SW will continue to follow.
[2020-12-12 11:00] VITALS: BP 116/84
[2020-12-12] MEDS ORDERED: LIDOCAINE 2% JELLY 6ML IN APPLICATOR. MM ONE ×2 (12:15→16:15)
[2020-12-12] MEDS ORDERED: PROCHLORPERAZINE 10 MG/2 ML VIAL. IV PRN (12:15)
[2020-12-12] MEDS: AA 4.25 %/CALCIUM/LYTES/D5W 1,000 ML IV SCH (12:35)
--- NOTE | 2020-12-12 14:15 | PDOC ---
SURGICAL PROGRESS NOTE DATE: 12/12/20 TIME: 14:14 Subjective Pt denies abd pain, but notes N/V, plans to replace NGT, no flatus Vital Signs Vital Signs Date Time Temp Pulse Resp B/P (MAP) Pulse Ox O2 Delivery O2 Flow Rate FiO2 12/12/20 11:00 98.2 90 18 116/84 (95) 98 Room Air 98.2 I&O Intake and Output 12/12/20 07:00 Intake Total 900 ml Balance 900 ml Intake Oral 0 ml Other 900 ml # Voids 7 General: Alert, Oriented X3, Cooperative, No acute distress Abdomen: Soft, No tenderness Labs Laboratory Tests Test 12/11/20 07:15 White Blood Count 7.3 x10^3/uL (4.0-11.0) Red Blood Count 3.97 x10^6/uL (3.50-5.40) Hemoglobin 12.2 g/dL (12.0-15.5) Hematocrit 36.4 % (36.0-47.0) Mean Corpuscular Volume 92 fL (79-100) Mean Corpuscular Hemoglobin 31 pg (25-35) Mean Corpuscular Hemoglobin Concent 34 g/dL (31-37) Red Cell Distribution Width 14.1 % (11.5-14.5) Platelet Count 139 x10^3/uL (140-400) Neutrophils (%) (Auto) 81 % (31-73) Lymphocytes (%) (Auto) 12 % (24-48) Monocytes (%) (Auto) 6 % (0-9) Eosinophils (%) (Auto) 0 % (0-3) Basophils (%) (Auto) 1 % (0-3) Neutrophils # (Auto) 5.9 x10^3/uL (1.8-7.7) Lymphocytes # (Auto) 0.9 x10^3/uL (1.0-4.8) Monocytes # (Auto) 0.4 x10^3/uL (0.0-1.1) Eosinophils # (Auto) 0.0 x10^3/uL (0.0-0.7) Basophils # (Auto) 0.1 x10^3/uL (0.0-0.2) Sodium Level 137 mmol/L (136-145) Potassium Level 4.0 mmol/L (3.5-5.1) Chloride Level 102 mmol/L (98-107) Carbon Dioxide Level 27 mmol/L (21-32) Anion Gap 8 (6-14) Blood Urea Nitrogen 15 mg/dL (7-20) Creatinine 1.1 mg/dL (0.6-1.0) Estimated GFR (Cockcroft-Gault) 56.9 BUN/Creatinine Ratio 14 (6-20) Glucose Level 120 mg/dL (70-99) Calcium Level 9.1 mg/dL (8.5-10.1) Total Bilirubin 0.7 mg/dL (0.2-1.0) Aspartate Amino Transf (AST/SGOT) 27 U/L (15-37) Alanine Aminotransferase (ALT/SGPT) 32 U/L (14-59) Alkaline Phosphatase 43 U/L (46-116) Total Protein 6.8 g/dL (6.4-8.2) Albumin 3.3 g/dL (3.4-5.0) Albumin/Globulin Ratio 0.9 (1.0-1.7) Problem List Problems Medical Problems: (1) SBO (small bowel obstruction) Status: Acute Assessment/Plan agree with NGT will plan SBFT in AM Justicifation of Admission Dx: Justifications for Admission: Justification of Admission Dx: Yes BELINDA GUAJARDO MD Dec 12, 2020 14:15
[2020-12-12 15:00] VITALS: BP 139/52
--- NOTE | 2020-12-12 16:14 | NUR ---
RN attempted NG placement. Patient unable to tolerate NG placement. Dr nguyễn. Orders received. Will attempt again.
[2020-12-12] MEDS ORDERED: BENZOCAINE ONE 20% MUCOSAL SPRAY. MM (16:15)
--- NOTE | 2020-12-12 17:06 | NUR ---
Multiple attempts made for NG placement. Lidocaine jelly and Hurricaine one spray used. Patient unable to tolerate placement of NG.
[2020-12-12 19:00] VITALS: BP 100/39
[2020-12-12 22:58] VITALS: BP 116/37
[2020-12-13] MEDS: AA 4.25 %/CALCIUM/LYTES/D5W 1,000 ML IV SCH ×3 (00:51→18:26)
[2020-12-13 03:00] VITALS: BP 136/68
[2020-12-13] MEDS: ONDANSETRON PF 4 MG/2 ML VIAL. IVP PRN ×3 (03:35→19:42)
[2020-12-13 07:15] VITALS: BP 136/61
[2020-12-13] MEDS: ASPIRIN ENTERIC COATED 81 MG TABLET.DR. PO SCH (08:00)
[2020-12-13] MEDS: LOSARTAN POTASSIUM 50 MG TABLET. PO SCH (09:00)
[2020-12-13] MEDS: PSYLLIUM HUSK (SUGAR FREE) 1 PKT PACKET PO SCH (09:00)
[2020-12-13] MEDS: MORPHINE SULFATE 4 MG/ML INJ. IV PRN (09:29)
[2020-12-13] MEDS: HEPARIN for SUB-Q USE 5,000 UNIT/ML VIAL. SQ SCH ×2 (09:33→22:03)
[2020-12-13] MEDS ORDERED: IOHEXOL 300 MG/ML 100ML VIAL. PO ONE (10:15)
[2020-12-13] MEDS ORDERED: CONTRAST GIVEN. MC PRN (10:15)
[2020-12-13 12:25] VITALS: BP 131/75
--- NOTE | 2020-12-13 13:23 | PDOC ---
[facility] PROGRESS NOTE Date of Service DOS: DATE: 12/13/20 TIME: 13:21 Chief Complaint Chief Complaint A/P: SBO - slow to improve Elevated troponins - likely demand ischemia. echo with preserved EF Hypertensive urgency - improved Hyperglycemia HLD - LDL extremely high, would be good candidate for PCSK9 inhibitor injections outpatient Abdominal pain, nausea/vomiting. CT abdomen/pelvis with concerns for SBO. GS following H/o CVA FEN - NPO History of Present Illness History of Present Illness Ms Caro is 85-year-old female with past medical history HTN, presents to the ED with complaints of abdominal pain, nausea, and vomiting. She reports epigastric abdominal pain, 10/10. She denies any associated fever, chest pain, or diarrhea. States her last bowel movement was yesterday and she last ate yesterday morning. She has received both of reflexive COVID-19 vaccines. Labs on admission showed platelets 132, BG 138, troponin 0.060, with repeat troponin 0.208, trended down to 0.200. CT abdomen/pelvis showed small bowel obstruction with possible transition point in the distal ileum. She had NG tube placed in the ED. Admitted patient for medical management. 12/11: Pulled out NGT overnight. She is up in the chair, not passing flatus, no BM. Pain 2/10. 12/12: Pain 10. Not passing flatus belching frequently. No further emesis at this time. No chest pain or shortness of breath. Advised we will start IV n utrition today. Multiple bouts of emesis failed NG tube placement 3 times radiology to perform under fluoroscopy today. Tolerating PPN well. No CP or SOB. Vitals/I&O Vitals/I&O: Vital Signs Date Time Temp Pulse Resp B/P (MAP) Pulse Ox O2 Delivery O2 Flow Rate FiO2 12/13/20 12:25 98.1 95 20 131/75 (93) 92 Room Air 98.1 I & O 12/12/20 12/12/20 12/13/20 15:00 23:00 07:00 Output Total 220 ml 220 ml Balance -220 ml -220 ml Physical Exam General: Alert, Oriented X3, Cooperative, No acute distress Heart: Regular rate Abdomen: Soft, No tenderness Extremities: No edema, Normal pulses Skin: No significant lesion Assessment and Plan Assessmemt and Plan Problems Medical Problems: (1) SBO (small bowel obstruction) Status: Acute Comment Review of Relevant I have reviewed the following items mekhi (where applicable) has been applied. Medications: Current Medications Medications (Trade) Dose Ordered Sig/Amy Route PRN Reason Start Time Stop Time Status Last Admin Dose Admin Lidocaine HCl (Glydo (Lidocaine) Jelly) 1 beth 1X ONCE MM 12/12/20 16:15 12/12/20 16:16 DC 12/12/20 16:32 Benzocaine (Hurricaine One) 1 spray 1X ONCE MM 12/12/20 16:15 12/12/20 16:16 DC 12/12/20 16:32 Iohexol (Omnipaque 300 Mg/ml) 400 ml 1X ONCE PO 12/13/20 10:15 12/13/20 10:16 DC 12/13/20 10:55 Justifications for Admission Other Justification JULISSA LERMA MD Dec 13, 2020 13:23
--- NOTE | 2020-12-13 14:19 | PDOC ---
ARCHIE NULL APRN 12/13/20 1419: SURGICAL PROGRESS NOTE DATE: 12/13/20 TIME: 14:18 Subjective says feeling well Vital Signs Vital Signs Date Time Temp Pulse Resp B/P (MAP) Pulse Ox O2 Delivery O2 Flow Rate FiO2 12/13/20 12:25 98.1 95 20 131/75 (93) 92 Room Air 98.1 I&O Intake and Output 12/13/20 07:00 Output Total 440 ml Balance -440 ml Emesis 440 ml # Voids 5 General: Cooperative HEENT: Other (ng) Abdomen: Soft Problem List Problems Medical Problems: (1) SBO (small bowel obstruction) Status: Acute Assessment/Plan await sbft Justicifation of Admission Dx: Justifications for Admission: Justification of Admission Dx: Yes BELINDA GUAJARDO MD 12/13/20 1436: SURGICAL PROGRESS NOTE Problem List Pt seen and examined. Agree with Ms. Null's note Pt reports feeling well, some belching, no flatus abd soft, NTTP cont NGT await SBFT ARCHIE NULL APRN Dec 13, 2020 14:19 BELINDA GUAJARDO MD Dec 13, 2020 14:36
--- NOTE | 2020-12-13 14:58 | RAD ---
EXAM: NG tube placement under fluoroscopic guidance DATE: 12/13/2020 10:40 AM INDICATION: Reason: NG tube replacement / Spl. Instructions: / History: . COMPARISON: 12/11/2020 FINDINGS/ IMPRESSION: The procedure was explained to the patient. Adequate lubrication jelly was utilized. The nares were a ssessed for patency. NG tube was placed through the left nare and advanced into the body of the stomach with intermittent fluoroscopic guidance. Electronically signed by: Roni Alcantar MD (12/13/2020 2:56 PM) [id number]
[2020-12-13 14:59] VITALS: BP 134/59
--- NOTE | 2020-12-13 16:34 | NUR ---
Unable to reach radiology re: NG suction being resumed. Dr. Klein informed, telephone order received.
--- NOTE | 2020-12-13 17:23 | RAD ---
CLINICAL HISTORY: Small bowel obstruction, abdominal pain COMPARISON: None available. TECHNIQUE: A small bowel follow-through study was performed. Water soluble contrast was injected via NG tube and multiple radiographs were taken at time intervals FINDINGS: The button broacher film demonstrates multiple dilated loops of small bowel consistent with history o f small bowel obstruction. Serial images of the abdomen demonstrate very slow transit of contrast in the small bowel of only a f ew proximal small bowel loops by the 5 hours and 55 minute image. No definite contrast is seen in the remainder of the small bowel or colon. IMPRESSION: By the 5 hour and 55 minute image only a few proximal small bowel loops were opacified consistent wit h bowel obstruction. Consider additional radiograph in the morning to assess for possible markedly de layed transit. Electronically signed by: Roni Alcantar MD (12/13/2020 5:20 PM) [id number]
[2020-12-13 19:05] VITALS: BP 129/62
[2020-12-13 23:20] VITALS: BP 117/50
[2020-12-14 03:20] VITALS: BP 127/57
[2020-12-14] MEDS: MORPHINE SULFATE 4 MG/ML INJ. IV PRN (04:14)
[2020-12-14 07:15] VITALS: BP 118/58
[2020-12-14] MEDS: LOSARTAN POTASSIUM 50 MG TABLET. PO SCH (07:56)
[2020-12-14] MEDS: ASPIRIN ENTERIC COATED 81 MG TABLET.DR. PO SCH (07:56)
[2020-12-14] MEDS: PSYLLIUM HUSK (SUGAR FREE) 1 PKT PACKET PO SCH (07:57)
[2020-12-14 08:14] LABS: BASO % 0 % (0-3); EOS % 0 % (0-3); HEMATOCRIT 34.9 % (36.0-47.0); HEMOGLOBIN 11.8 g/dL (12.0-15.5); LYMPH # 0.8 x10^3/uL (1.0-4.8); LYMPH % 11 % (24-48); MEAN CORPUSCULAR HEMOGLOBIN 31 pg (25-35); MEAN CORPUSCULAR HGB CONC 34 g/dL (31-37); MEAN CORPUSCULAR VOLUME 91 fL (79-100); MONO # 0.5 x10^3/uL (0.0-1.1); MONO % 7 % (0-9); NEUT # 5.9 x10^3/uL (1.8-7.7); NEUT % 81 % (31-73); PLATELET COUNT 118 x10^3/uL (140-400); RED BLOOD COUNT 3.82 x10^6/uL (3.50-5.40); RED CELL DISTRIBUTION WIDTH 13.9 % (11.5-14.5); WHITE BLOOD COUNT 7.3 x10^3/uL (4.0-11.0)
[2020-12-14] MEDS: AA 4.25 %/CALCIUM/LYTES/D5W 1,000 ML IV SCH ×2 (08:36→22:14)
[2020-12-14] MEDS: HEPARIN for SUB-Q USE 5,000 UNIT/ML VIAL. SQ SCH ×2 (08:42→21:09)
[2020-12-14 08:43] LABS: ALBUMIN/GLOBULIN RATIO 0.8 (1.0-1.7); CALCIUM 9.4 mg/dL (8.5-10.1); CREATININE 1.1 mg/dL (0.6-1.0); GFR 56.9; POTASSIUM 4.6 mmol/L (3.5-5.1); TOTAL BILIRUBIN 0.5 mg/dL (0.2-1.0); TOTAL PROTEIN 6.7 g/dL (6.4-8.2)
[2020-12-14 11:12] VITALS: BP 127/56
--- NOTE | 2020-12-14 11:13 | RAD ---
EXAM: Abdomen, 2 views. HISTORY: Small bowel obstruction. COMPARISON: 12/11/2020 FINDINGS: Frontal upright and supine views of abdomen are obtained. There is a nasogastric tube withi n the distal gastric antrum. There are distended air-filled loops of small bowel throughout the abdom en. No convincing transition point is seen. There is no free air. There is bilateral basilar atelecta sis and possible trace pleural effusions. There is degenerative change involving the spine, primarily the lumbosacral junction. IMPRESSION: 1. Persistent distended air-filled small bowel throughout the abdomen. This is similar compared to th e prior radiograph dated 12/11/2020 and likely increased compared to the CT performed 12/09/2020. The i maging appearance favors distal small bowel obstruction. 2. Bilateral basilar atelectasis and possible trace pleural effusions. Electronically signed by: Lexus Pool MD (12/14/2020 11:10 AM) [id number]
--- NOTE | 2020-12-14 11:55 | PDOC ---
ARCHIE MEEKS DIRECTOR OF MEDICARE 12/14/20 1155: SURGICAL PROGRESS NOTE DATE: 12/14/20 TIME: 11:54 Subjective doing ok abdomen sore no bowel function Vital Signs Vital Signs Date Time Temp Pulse Resp B/P (MAP) Pulse Ox O2 Delivery O2 Flow Rate FiO2 12/14/20 11:12 98.0 75 16 127/56 (79) 96 Room Air 98.0 I&O Intake and Output 12/14/20 07:00 Intake Total 0 ml Output Total 3100 ml Balance -3100 ml Intake Oral 0 ml Output Urine Total 300 ml Gastric Drainage Total 2800 ml # Voids 3 General: Cooperative HEENT: Other (ng in place ) Abdomen: Soft, Other (mild ttp) Labs Laboratory Tests Test 12/14/20 08:00 White Blood Count 7.3 x10^3/uL (4.0-11.0) Red Blood Count 3.82 x10^6/uL (3.50-5.40) Hemoglobin 11.8 g/dL (12.0-15.5) Hematocrit 34.9 % (36.0-47.0) Mean Corpuscular Volume 91 fL (79-100) Mean Corpuscular Hemoglobin 31 pg (25-35) Mean Corpuscular Hemoglobin Concent 34 g/dL (31-37) Red Cell Distribution Width 13.9 % (11.5-14.5) Platelet Count 118 x10^3/uL (140-400) Neutrophils (%) (Auto) 81 % (31-73) Lymphocytes (%) (Auto) 11 % (24-48) Monocytes (%) (Auto) 7 % (0-9) Eosinophils (%) (Auto) 0 % (0-3) Basophils (%) (Auto) 0 % (0-3) Neutrophils # (Auto) 5.9 x10^3/uL (1.8-7.7) Lymphocytes # (Auto) 0.8 x10^3/uL (1.0-4.8) Monocytes # (Auto) 0.5 x10^3/uL (0.0-1.1) Eosinophils # (Auto) 0.0 x10^3/uL (0.0-0.7) Basophils # (Auto) 0.0 x10^3/uL (0.0-0.2) Sodium Level 139 mmol/L (136-145) Potassium Level 4.6 mmol/L (3.5-5.1) Chloride Level 101 mmol/L (98-107) Carbon Dioxide Level 36 mmol/L (21-32) Anion Gap 2 (6-14) Blood Urea Nitrogen 45 mg/dL (7-20) Creatinine 1.1 mg/dL (0.6-1.0) Estimated GFR (Cockcroft-Gault) 56.9 BUN/Creatinine Ratio 41 (6-20) Glucose Level 117 mg/dL (70-99) Calcium Level 9.4 mg/dL (8.5-10.1) Total Bilirubin 0.5 mg/dL (0.2-1.0) Aspartate Amino Transf (AST/SGOT) 29 U/L (15-37) Alanine Aminotransferase (ALT/SGPT) 44 U/L (14-59) Alkaline Phosphatase 55 U/L (46-116) Total Protein 6.7 g/dL (6.4-8.2) Albumin 3.0 g/dL (3.4-5.0) Albumin/Globulin Ratio 0.8 (1.0-1.7) Laboratory Tests Test 12/14/20 08:00 White Blood Count 7.3 x10^3/uL (4.0-11.0) Red Blood Count 3.82 x10^6/uL (3.50-5.40) Hemoglobin 11.8 g/dL (12.0-15.5) Hematocrit 34.9 % (36.0-47.0) Mean Corpuscular Volume 91 fL (79-100) Mean Corpuscular Hemoglobin 31 pg (25-35) Mean Corpuscular Hemoglobin Concent 34 g/dL (31-37) Red Cell Distribution Width 13.9 % (11.5-14.5) Platelet Count 118 x10^3/uL (140-400) Neutrophils (%) (Auto) 81 % (31-73) Lymphocytes (%) (Auto) 11 % (24-48) Monocytes (%) (Auto) 7 % (0-9) Eosinophils (%) (Auto) 0 % (0-3) Basophils (%) (Auto) 0 % (0-3) Neutrophils # (Auto) 5.9 x10^3/uL (1.8-7.7) Lymphocytes # (Auto) 0.8 x10^3/uL (1.0-4.8) Monocytes # (Auto) 0.5 x10^3/uL (0.0-1.1) Eosinophils # (Auto) 0.0 x10^3/uL (0.0-0.7) Basophils # (Auto) 0.0 x10^3/uL (0.0-0.2) Sodium Level 139 mmol/L (136-145) Potassium Level 4.6 mmol/L (3.5-5.1) Chloride Level 101 mmol/L (98-107) Carbon Dioxide Level 36 mmol/L (21-32) Anion Gap 2 (6-14) Blood Urea Nitrogen 45 mg/dL (7-20) Creatinine 1.1 mg/dL (0.6-1.0) Estimated GFR (Cockcroft-Gault) 56.9 BUN/Creatinine Ratio 41 (6-20) Glucose Level 117 mg/dL (70-99) Calcium Level 9.4 mg/dL (8.5-10.1) Total Bilirubin 0.5 mg/dL (0.2-1.0) Aspartate Amino Transf (AST/SGOT) 29 U/L (15-37) Alanine Aminotransferase (ALT/SGPT) 44 U/L (14-59) Alkaline Phosphatase 55 U/L (46-116) Total Protein 6.7 g/dL (6.4-8.2) Albumin 3.0 g/dL (3.4-5.0) Albumin/Globulin Ratio 0.8 (1.0-1.7) Problem List Problems Medical Problems: (1) SBO (small bowel obstruction) Status: Acute Assessment/Plan continued obstructive appearance will review with Dr Rios Justicifation of Admission Dx: Justifications for Admission: Justification of Admission Dx: Yes BELINDA RIOS MD 12/14/20 1656: SURGICAL PROGRESS NOTE Assessment/Plan Pt seen and examined. Agree with Ms. Meeks's note Pt actually reports feeling well without additional belching. abd soft, mild distention KUB with SB distention will try sesame seed oil pt poor surgical candidate. ARCHIE MEEKS APRN Dec 14, 2020 11:55 BELINDA RIOS MD Dec 14, 2020 16:56
[2020-12-14 15:13] VITALS: BP 135/57
--- NOTE | 2020-12-14 15:49 | PDOC ---
[facility] PROGRESS NOTE Date of Service DOS: DATE: 12/14/20 TIME: 15:48 Chief Complaint Chief Complaint A/P: SBO - slow to improve Elevated troponins - likely demand ischemia. echo with preserved EF Hypertensive urgency - improved Hyperglycemia HLD - LDL extremely high, would be good candidate for PCSK9 inhibitor injections outpatient Abdominal pain, nausea/vomiting. CT abdomen/pelvis with concerns for SBO. GS following H/o CVA FEN - NPO History of Present Illness History of Present Illness Ms Caro is 85-year-old female with past medical history HTN, presents to the ED with complaints of abdominal pain, nausea, and vomiting. She reports epigastric abdominal pain, 10/10. She denies any associated fever, chest pain, or diarrhea. States her last bowel movement was yesterday and she last ate yesterday morning. She has received both of reflexive COVID-19 vaccines. Labs on admission showed platelets 132, BG 138, troponin 0.060, with repeat troponin 0.208, trended down to 0.200. CT abdomen/pelvis showed small bowel obstruction with possible transition point in the distal ileum. She had NG tube placed in the ED. Admitted patient for medical management. 12/11: Pulled out NGT overnight. She is up in the chair, not passing flatus, no BM. Pain 2/10. 12/12: Pain 10. Not passing flatus belching frequently. No further emesis at this time. No chest pain or shortness of breath. Advised we will start IV n utrition today. 12/13: Multiple bouts of emesis failed NG tube placement 3 times radiology to perform under fluoroscopy today. Tolerating PPN well. No CP or SOB. No flatus or bowel movement. Tolerating NG tube well. Pain reasonably controlled. BUN elevated. With her lipid panel would favor holding off on lipid formulation and continue PPN, add PPI. Vitals/I&O Vitals/I&O: Vital Signs Date Time Temp Pulse Resp B/P (MAP) Pulse Ox O2 Delivery O2 Flow Rate FiO2 12/14/20 15:13 98.2 79 16 135/57 (83) 98 Room Air 98.2 I & O 12/13/20 12/13/20 12/14/20 15:00 23:00 07:00 Intake Total 0 ml Output Total 1300 ml 1800 ml Balance -1300 ml -1800 ml Physical Exam General: Cooperative Heart: Regular rate Abdomen: Soft, Other (mild ttp) Extremities: No edema, Normal pulses Skin: No significant lesion Labs Labs: Laboratory Tests Test 12/14/20 08:00 White Blood Count 7.3 x10^3/uL (4.0-11.0) Red Blood Count 3.82 x10^6/uL (3.50-5.40) Hemoglobin 11.8 g/dL (12.0-15.5) Hematocrit 34.9 % (36.0-47.0) Mean Corpuscular Volume 91 fL (79-100) Mean Corpuscular Hemoglobin 31 pg (25-35) Mean Corpuscular Hemoglobin Concent 34 g/dL (31-37) Red Cell Distribution Width 13.9 % (11.5-14.5) Platelet Count 118 x10^3/uL (140-400) Neutrophils (%) (Auto) 81 % (31-73) Lymphocytes (%) (Auto) 11 % (24-48) Monocytes (%) (Auto) 7 % (0-9) Eosinophils (%) (Auto) 0 % (0-3) Basophils (%) (Auto) 0 % (0-3) Neutrophils # (Auto) 5.9 x10^3/uL (1.8-7.7) Lymphocytes # (Auto) 0.8 x10^3/uL (1.0-4.8) Monocytes # (Auto) 0.5 x10^3/uL (0.0-1.1) Eosinophils # (Auto) 0.0 x10^3/uL (0.0-0.7) Basophils # (Auto) 0.0 x10^3/uL (0.0-0.2) Sodium Level 139 mmol/L (136-145) Potassium Level 4.6 mmol/L (3.5-5.1) Chloride Level 101 mmol/L (98-107) Carbon Dioxide Level 36 mmol/L (21-32) Anion Gap 2 (6-14) Blood Urea Nitrogen 45 mg/dL (7-20) Creatinine 1.1 mg/dL (0.6-1.0) Estimated GFR (Cockcroft-Gault) 56.9 BUN/Creatinine Ratio 41 (6-20) Glucose Level 117 mg/dL (70-99) Calcium Level 9.4 mg/dL (8.5-10.1) Total Bilirubin 0.5 mg/dL (0.2-1.0) Aspartate Amino Transf (AST/SGOT) 29 U/L (15-37) Alanine Aminotransferase (ALT/SGPT) 44 U/L (14-59) Alkaline Phosphatase 55 U/L (46-116) Total Protein 6.7 g/dL (6.4-8.2) Albumin 3.0 g/dL (3.4-5.0) Albumin/Globulin Ratio 0.8 (1.0-1.7) Assessment and Plan Assessmemt and Plan Problems Medical Problems: (1) SBO (small bowel obstruction) Status: Acute Comment Review of Relevant I have reviewed the following items mekhi (where applicable) has been applied. Justifications for Admission Other Justification JULISSA LERMA MD Dec 14, 2020 15:49
[2020-12-14] MEDS ORDERED: PANTOPRAZOLE IV PUSH 40 MG VIAL. IVP ONE (16:00)
[2020-12-14 19:10] VITALS: BP 131/66
[2020-12-14 23:24] VITALS: BP 120/48
[2020-12-15 02:45] VITALS: BP 121/47
--- NOTE | 2020-12-15 05:17 | NUR ---
Patient did not tolerate NG being clamped after sesame oil, call to surgeon, orders to resume LIS
[2020-12-15 07:00] VITALS: BP 121/66
[2020-12-15] MEDS: ASPIRIN ENTERIC COATED 81 MG TABLET.DR. PO SCH (07:38)
[2020-12-15] MEDS: PSYLLIUM HUSK (SUGAR FREE) 1 PKT PACKET PO SCH (07:38)
[2020-12-15] MEDS: LOSARTAN POTASSIUM 50 MG TABLET. PO SCH (07:38)
--- NOTE | 2020-12-15 07:50 | PDOC ---
[employer] PROGRESS NOTE Date of Service DOS: DATE: 12/15/20 TIME: 07:50 Chief Complaint Chief Complaint A/P: SBO - slow to improve Elevated troponins - likely demand ischemia. echo with preserved EF Hypertensive urgency - improved Hyperglycemia HLD - LDL extremely high, would be good candidate for PCSK9 inhibitor injections outpatient Abdominal pain, nausea/vomiting. CT abdomen/pelvis with concerns for SBO. GS following H/o CVA FEN - NPO PPX - lovenox FULL CODE DIspo - inpatient History of Present Illness History of Present Illness Ms Caro is 85-year-old female with past medical history HTN, presents to the ED with complaints of abdominal pain, nausea, and vomiting. She reports epigastric abdominal pain, 10/10. She denies any associated fever, chest pain, or diarrhea. States her last bowel movement was yesterday and she last ate yesterday morning. She has received both of reflexive COVID-19 vaccines. Labs on admission showed platelets 132, BG 138, troponin 0.060, with repeat troponin 0.208, trended down to 0.200. CT abdomen/pelvis showed small bowel obstruction with possible transition point in the distal ileum. She had NG tube placed in [facility] ED. Admitted patient for medical management. 12/11: Pulled out NGT overnight. She is up in the chair, not passing flatus, no BM. Pain 2/10. 12/12: Pain 10. Not passing flatus belching frequently. No further emesis at this time. No chest pain or shortness of breath. Advised we will start IV nutrition today. 12/13: Multiple bouts of emesis failed NG tube placement 3 times radiology to perform under fluoroscopy today. Tolerating PPN well. No CP or SOB. 12/14: No flatus or bowel movement. Tolerating NG tube well. Pain reasonably controlled. BUN elevated. With her lipid panel would favor holding off on lipid formulation and continue PPN, add PPI. Did not tolerate clamping with sesame oil. Pain is little worse today. No flatus few bowel sounds. We will plan for PICC and TPN. Vitals/I&O Vitals/I&O: Vital Signs Date Time Temp Pulse Resp B/P (MAP) Pulse Ox O2 Delivery O2 Flow Rate FiO2 12/15/20 02:45 98.1 97 14 121/47 (71) 92 98.1 12/14/20 23:24 Room Air I & O 12/14/20 12/14/20 12/15/20 15:00 23:00 07:00 Intake Total 0 ml 0 ml Output Total 1100 ml 1400 ml Balance 0 ml -1100 ml -1400 ml Physical Exam General: Cooperative Heart: Regular rate Abdomen: Soft, Other (mild ttp) Extremities: No edema, Normal pulses Skin: No significant lesion Labs Labs: Laboratory Tests Test 12/14/20 08:00 White Blood Count 7.3 x10^3/uL (4.0-11.0) Red Blood Count 3.82 x10^6/uL (3.50-5.40) Hemoglobin 11.8 g/dL (12.0-15.5) Hematocrit 34.9 % (36.0-47.0) Mean Corpuscular Volume 91 fL (79-100) Mean Corpuscular Hemoglobin 31 pg (25-35) Mean Corpuscular Hemoglobin Concent 34 g/dL (31-37) Red Cell Distribution Width 13.9 % (11.5-14.5) Platelet Count 118 x10^3/uL (140-400) Neutrophils (%) (Auto) 81 % (31-73) Lymphocytes (%) (Auto) 11 % (24-48) Monocytes (%) (Auto) 7 % (0-9) Eosinophils (%) (Auto) 0 % (0-3) Basophils (%) (Auto) 0 % (0-3) Neutrophils # (Auto) 5.9 x10^3/uL (1.8-7.7) Lymphocytes # (Auto) 0.8 x10^3/uL (1.0-4.8) Monocytes # (Auto) 0.5 x10^3/uL (0.0-1.1) Eosinophils # (Auto) 0.0 x10^3/uL (0.0-0.7) Basophils # (Auto) 0.0 x10^3/uL (0.0-0.2) Sodium Level 139 mmol/L (136-145) Potassium Level 4.6 mmol/L (3.5-5.1) Chloride Level 101 mmol/L (98-107) Carbon Dioxide Level 36 mmol/L (21-32) Anion Gap 2 (6-14) Blood Urea Nitrogen 45 mg/dL (7-20) Creatinine 1.1 mg/dL (0.6-1.0) Estimated GFR (Cockcroft-Gault) 56.9 BUN/Creatinine Ratio 41 (6-20) Glucose Level 117 mg/dL (70-99) Calcium Level 9.4 mg/dL (8.5-10.1) Total Bilirubin 0.5 mg/dL (0.2-1.0) Aspartate Amino Transf (AST/SGOT) 29 U/L (15-37) Alanine Aminotransferase (ALT/SGPT) 44 U/L (14-59) Alkaline Phosphatase 55 U/L (46-116) Total Protein 6.7 g/dL (6.4-8.2) Albumin 3.0 g/dL (3.4-5.0) Albumin/Globulin Ratio 0.8 (1.0-1.7) Assessment and Plan Assessmemt and Plan Problems Medical Problems: (1) SBO (small bowel obstruction) Status: Acute Comment Review of Relevant I have reviewed the following items mekhi (where applicable) has been applied. Medications: Current Medications Medications (Trade) Dose Ordered Sig/Amy Route PRN Reason Start Time Stop Time Status Last Admin Dose Admin Pantoprazole Sodium (PROTONIX VIAL for IV PUSH) 40 mg 1X ONCE IVP 12/14/20 16:00 12/14/20 16:01 DC 12/14/20 18:51 Justifications for Admission Other Justification JULISSA LERMA MD Dec 15, 2020 07:50
--- NOTE | 2020-12-15 08:45 | PDOC ---
SURGICAL PROGRESS NOTE DATE: 12/15/20 TIME: 08:42 Subjective stomach upset no flatus Vital Signs Vital Signs Date Time Temp Pulse Resp B/P (MAP) Pulse Ox O2 Delivery O2 Flow Rate FiO2 12/15/20 02:45 98.1 97 14 121/47 (71) 92 98.1 12/14/20 23:24 Room Air I&O Intake and Output 12/15/20 07:00 Intake Total 0 ml Output Total 2500 ml Balance -2500 ml Intake Oral 0 ml Gastric Drainage Total 2500 ml # Voids 2 General: Cooperative, No acute distress Abdomen: Soft, No tenderness Labs Laboratory Tests Test 12/14/20 08:00 White Blood Count 7.3 x10^3/uL (4.0-11.0) Red Blood Count 3.82 x10^6/uL (3.50-5.40) Hemoglobin 11.8 g/dL (12.0-15.5) Hematocrit 34.9 % (36.0-47.0) Mean Corpuscular Volume 91 fL (79-100) Mean Corpuscular Hemoglobin 31 pg (25-35) Mean Corpuscular Hemoglobin Concent 34 g/dL (31-37) Red Cell Distribution Width 13.9 % (11.5-14.5) Platelet Count 118 x10^3/uL (140-400) Neutrophils (%) (Auto) 81 % (31-73) Lymphocytes (%) (Auto) 11 % (24-48) Monocytes (%) (Auto) 7 % (0-9) Eosinophils (%) (Auto) 0 % (0-3) Basophils (%) (Auto) 0 % (0-3) Neutrophils # (Auto) 5.9 x10^3/uL (1.8-7.7) Lymphocytes # (Auto) 0.8 x10^3/uL (1.0-4.8) Monocytes # (Auto) 0.5 x10^3/uL (0.0-1.1) Eosinophils # (Auto) 0.0 x10^3/uL (0.0-0.7) Basophils # (Auto) 0.0 x10^3/uL (0.0-0.2) Sodium Level 139 mmol/L (136-145) Potassium Level 4.6 mmol/L (3.5-5.1) Chloride Level 101 mmol/L (98-107) Carbon Dioxide Level 36 mmol/L (21-32) Anion Gap 2 (6-14) Blood Urea Nitrogen 45 mg/dL (7-20) Creatinine 1.1 mg/dL (0.6-1.0) Estimated GFR (Cockcroft-Gault) 56.9 BUN/Creatinine Ratio 41 (6-20) Glucose Level 117 mg/dL (70-99) Calcium Level 9.4 mg/dL (8.5-10.1) Total Bilirubin 0.5 mg/dL (0.2-1.0) Aspartate Amino Transf (AST/SGOT) 29 U/L (15-37) Alanine Aminotransferase (ALT/SGPT) 44 U/L (14-59) Alkaline Phosphatase 55 U/L (46-116) Total Protein 6.7 g/dL (6.4-8.2) Albumin 3.0 g/dL (3.4-5.0) Albumin/Globulin Ratio 0.8 (1.0-1.7) Problem List Problems Medical Problems: (1) SBO (small bowel obstruction) Status: Acute Assessment/Plan continue NG, xr in AM poor surgical candidate Justicifation of Admission Dx: Justifications for Admission: Justification of Admission Dx: Yes ARCHIE NULL SENIOR ENVIRONMENTAL CONSULTANT Dec 15, 2020 08:45
[2020-12-15] MEDS: PANTOPRAZOLE IV PUSH 40 MG VIAL. IVP SCH (09:07)
[2020-12-15] MEDS: ONDANSETRON PF 4 MG/2 ML VIAL. IVP PRN (09:07)
[2020-12-15] MEDS: HEPARIN for SUB-Q USE 5,000 UNIT/ML VIAL. SQ SCH ×2 (09:11→21:18)
[2020-12-15 11:00] VITALS: BP 140/55
[2020-12-15 15:00] VITALS: BP 146/75
[2020-12-15] MEDS: AA 4.25 %/CALCIUM/LYTES/D5W 1,000 ML IV SCH (15:37)
--- NOTE | 2020-12-15 19:14 | RAD ---
Exam: Chest one view INDICATION: Verify PICC TECHNIQUE: Frontal view of the chest Comparisons: 05/14/2016 FINDINGS: Right-sided PICC with tip at the atrial caval junction. Enteric tube with tip in the left upper quadr ant likely in the stomach. The cardiomediastinal silhouette and pulmonary vessels are within normal limits. The lung and pleural spaces are clear. IMPRESSION: Lines and tubes described above Electronically signed by: Madalyn Banuelos MD (12/15/2020 7:12 PM) [facility]
[2020-12-15 19:25] VITALS: BP 139/66
[2020-12-15 23:12] VITALS: BP 130/58
[2020-12-16] MEDS: AA 4.25 %/CALCIUM/LYTES/D5W 1,000 ML IV SCH (03:11)
[2020-12-16 03:21] VITALS: BP 141/79
[2020-12-16 07:00] VITALS: BP 112/56
[2020-12-16] MEDS: ASPIRIN ENTERIC COATED 81 MG TABLET.DR. PO SCH (08:00)
--- NOTE | 2020-12-16 08:10 | PDOC ---
SURGICAL PROGRESS NOTE DATE: 12/16/20 TIME: 08:09 Subjective feels ok, no bowel function Vital Signs Vital Signs Date Time Temp Pulse Resp B/P (MAP) Pulse Ox O2 Delivery O2 Flow Rate FiO2 12/16/20 07:00 98.6 86 18 112/56 (74) 93 Room Air 98.6 I&O Intake and Output 12/16/20 07:00 Output Total 200 ml Balance -200 ml Emesis 200 ml # Voids 3 General: Alert, Cooperative HEENT: Other (ng) Abdomen: Soft, No tenderness Problem List Problems Medical Problems: (1) SBO (small bowel obstruction) Status: Acute Assessment/Plan xr pending continue NG Justicifation of Admission Dx: Justifications for Admission: Justification of Admission Dx: Yes ARCHIE NULL DIRECTOR GAME Dec 16, 2020 08:10
[2020-12-16] MEDS: PANTOPRAZOLE IV PUSH 40 MG VIAL. IVP SCH (08:21)
[2020-12-16] MEDS: PSYLLIUM HUSK (SUGAR FREE) 1 PKT PACKET PO SCH (09:00)
[2020-12-16] MEDS: LOSARTAN POTASSIUM 50 MG TABLET. PO SCH (09:00)
[2020-12-16 10:31] LABS: HEMATOCRIT 35.5 % (36.0-47.0); RED BLOOD COUNT 3.89 x10^6/uL (3.50-5.40); RED CELL DISTRIBUTION WIDTH 13.7 % (11.5-14.5); WHITE BLOOD COUNT 7.5 x10^3/uL (4.0-11.0)
[2020-12-16 10:48] LABS: ALBUMIN 3.3 g/dL (3.4-5.0); ALBUMIN/GLOBULIN RATIO 0.8 (1.0-1.7); CALCIUM 9.1 mg/dL (8.5-10.1); CREATININE 1.1 mg/dL (0.6-1.0); GFR 56.9; POTASSIUM 4.6 mmol/L (3.5-5.1); TOTAL BILIRUBIN 0.3 mg/dL (0.2-1.0); TOTAL PROTEIN 7.4 g/dL (6.4-8.2)
[2020-12-16] MEDS: HEPARIN for SUB-Q USE 5,000 UNIT/ML VIAL. SQ SCH ×2 (11:00→21:14)
--- NOTE | 2020-12-16 13:08 | PDOC ---
[employer] PROGRESS NOTE Date of Service DOS: DATE: 12/16/20 TIME: 13:06 Chief Complaint Chief Complaint A/P: SBO - slow to improve Elevated troponins - likely demand ischemia. echo with preserved EF Hypertensive urgency - improved Hyperglycemia HLD - LDL extremely high, would be good candidate for PCSK9 inhibitor injections outpatient Abdominal pain, nausea/vomiting. CT abdomen/pelvis with concerns for SBO. GS following H/o CVA FEN - NPO PPX - lovenox FULL CODE DIspo - inpatient History of Present Illness History of Present Illness Ms Caro is 85-year-old female with past medical history HTN, presents to the ED with complaints of abdominal pain, nausea, and vomiting. She reports epigastric abdominal pain, 10/10. She denies any associated fever, chest pain, or diarrhea. States her last bowel movement was yesterday and she last ate yesterday morning. She has received both of reflexive COVID-19 vaccines. Labs on admission showed platelets 132, BG 138, troponin 0.060, with repeat troponin 0.208, trended down to 0.200. CT abdomen/pelvis showed small bowel obstruction with possible transition point in the distal ileum. She had NG tube placed in [facility] ED. Admitted patient for medical management. 12/11: Pulled out NGT overnight. She is up in the chair, not passing flatus, no BM. Pain 2/10. 12/12: Pain 10. Not passing flatus belching frequently. No further emesis at this time. No chest pain or shortness of breath. Advised we will start IV nutrition today. 12/13: Multiple bouts of emesis failed NG tube placement 3 times radiology to perform under fluoroscopy today. Tolerating PPN well. No CP or SOB. 12/14: No flatus or bowel movement. Tolerating NG tube well. Pain reasonably controlled. BUN elevated. With her lipid panel would favor holding off on lipid formulation and continue PPN, add PPI. 12/15: Did not tolerate clamping with sesame oil. Pain is little worse today. No flatus few bowel sounds. PICC placed and TPN. Afebrile. No flatus or bowel movement. PICC in place. Will transition from PPN to TPN today. Pain is stable. Vitals/I&O Vitals/I&O: Vital Signs Date Time Temp Pulse Resp B/P (MAP) Pulse Ox O2 Delivery O2 Flow Rate FiO2 12/16/20 07:00 98.6 86 18 112/56 (74) 93 Room Air 98.6 I & O 12/15/20 12/15/20 12/16/20 15:00 23:00 07:00 Output Total 100 ml 100 ml Balance -100 ml -100 ml Physical Exam General: Alert, Cooperative Heart: Regular rate Abdomen: Soft, No tenderness Extremities: No edema, Normal pulses Skin: No significant lesion Labs Labs: Laboratory Tests Test 12/16/20 10:09 White Blood Count 7.5 x10^3/uL (4.0-11.0) Red Blood Count 3.89 x10^6/uL (3.50-5.40) Hemoglobin 12.0 g/dL (12.0-15.5) Hematocrit 35.5 % (36.0-47.0) Mean Corpuscular Volume 91 fL (79-100) Mean Corpuscular Hemoglobin 31 pg (25-35) Mean Corpuscular Hemoglobin Concent 34 g/dL (31-37) Red Cell Distribution Width 13.7 % (11.5-14.5) Platelet Count 145 x10^3/uL (140-400) Sodium Level 136 mmol/L (136-145) Potassium Level 4.6 mmol/L (3.5-5.1) Chloride Level 96 mmol/L (98-107) Carbon Dioxide Level 35 mmol/L (21-32) Anion Gap 5 (6-14) Blood Urea Nitrogen 53 mg/dL (7-20) Creatinine 1.1 mg/dL (0.6-1.0) Estimated GFR (Cockcroft-Gault) 56.9 BUN/Creatinine Ratio 48 (6-20) Glucose Level 114 mg/dL (70-99) Calcium Level 9.1 mg/dL (8.5-10.1) Total Bilirubin 0.3 mg/dL (0.2-1.0) Aspartate Amino Transf (AST/SGOT) 30 U/L (15-37) Alanine Aminotransferase (ALT/SGPT) 43 U/L (14-59) Alkaline Phosphatase 49 U/L (46-116) Total Protein 7.4 g/dL (6.4-8.2) Albumin 3.3 g/dL (3.4-5.0) Albumin/Globulin Ratio 0.8 (1.0-1.7) Assessment and Plan Assessmemt and Plan Problems Medical Problems: (1) SBO (small bowel obstruction) Status: Acute Comment Review of Relevant I have reviewed the following items mekhi (where applicable) has been applied. Justifications for Admission Other Justification JULISSA LERMA MD Dec 16, 2020 13:08
[2020-12-16] MEDS: TPN PER PHARMACY MC PRN (13:37)
--- NOTE | 2020-12-16 13:40 | NUR ---
Pharmacy TPN Dosing Note S: OMAR LYON is a 85 year old F Currently receiving Central Continuous TPN started 12/16/20 B:Pertinent PMH: SBO Current diet: NPO LABS: Sodium: 136 Potassium: 4.6 Chloride: 96 Calcium: 9.1 Corrected Calcium: 9.66 Magnesium: - CO2: 35 SCr: 1.1 Glucose: 114 Albumin: 3.3 AST: 30 ALT: 43 TPN FORMULA: TPN TYPE: Central Continuous AMINO ACIDS: 60 gm DEXTROSE: 195 gm LIPIDS: 20 gm SODIUM CHLORIDE: 90 mEq SODIUM ACETATE: - mEq SODIUM PHOSPHATE: - mmol POTASSIUM CHLORIDE: 50 mEq POTASSIUM ACETATE: - mEq POTASSIUM PHOSPHATE: 13.6 mmol MAGNESIUM: 10 mEq CALCIUM: 10 mEq INSULIN: - units MULTIPLE VITAMIN: 5 ml TRACE ELEMENTS: 1 ml ml(s) TPN PLAN: 12/16 START STANDARD TPN TONIGHT R: Begin TPN Will monitor electrolytes, glucose, and tolerance to TPN. MARY DÍAZ [facility], 12/16/20 [id number]
[2020-12-16 15:00] VITALS: BP 127/59
--- NOTE | 2020-12-16 16:40 | RAD ---
ACUTE ABDOMEN SERIES Indication: Small bowel obstruction. Date of service:12/16/2020 .Comparison: None available Procedure: PA chest and upright and supine abdomen views are obtained. Findings: Chest: Cardiac size and pulmonary vessels are normal. Pneumonia, pneumothorax or pleural effusion ar e not present. There is a right arm PICC line in place extending up to the atrioventricular junction. The feeding tube terminates in the stomach. Abdomen: No evidence of free air is present. Gas pattern is normal . No abnormal calcification. Impression: Normal Chest . Normal abdomen without obstruction, ileus or free air . If indicated, CT scan of the abdomen would be useful for further evaluation. Electronically signed by: Tamica Nguyễn MD (12/16/2020 4:38 PM) [facility]
[2020-12-16 19:25] VITALS: BP 135/63
[2020-12-16] MEDS ORDERED: TOTAL PARENTERAL NUTRITION 1,429.9614 ML, AMINO ACID 15% 60 GM, DEXTROSE 70 % IN WATER ... IV SCH (22:00)
[2020-12-16 23:08] VITALS: BP 128/75
[2020-12-17] VITALS (7 sets, daily range): BP systolic 113–140; BP diastolic 49–82
[2020-12-17 06:28] LABS: ALBUMIN 3.3 g/dL (3.4-5.0); ALBUMIN/GLOBULIN RATIO 0.8 (1.0-1.7); CALCIUM 9.4 mg/dL (8.5-10.1); CREATININE 1.2 mg/dL (0.6-1.0); GFR 51.4; MAGNESIUM 2.7 mg/dL (1.8-2.4); PHOSPHORUS 3.6 mg/dL (2.6-4.7); POTASSIUM 4.6 mmol/L (3.5-5.1); TOTAL BILIRUBIN 0.3 mg/dL (0.2-1.0); TOTAL PROTEIN 7.5 g/dL (6.4-8.2)
[2020-12-17] MEDS: ASPIRIN ENTERIC COATED 81 MG TABLET.DR. PO SCH (08:00)
[2020-12-17] MEDS: LOSARTAN POTASSIUM 50 MG TABLET. PO SCH (09:00)
[2020-12-17] MEDS: PSYLLIUM HUSK (SUGAR FREE) 1 PKT PACKET PO SCH (09:00)
[2020-12-17] MEDS: HEPARIN for SUB-Q USE 5,000 UNIT/ML VIAL. SQ SCH ×2 (09:00→21:22)
[2020-12-17] MEDS: PANTOPRAZOLE IV PUSH 40 MG VIAL. IVP SCH (09:03)
--- NOTE | 2020-12-17 09:05 | PDOC ---
SURGICAL PROGRESS NOTE DATE: 12/17/20 TIME: 09:04 Subjective a little flatus last night still high ng output Vital Signs Vital Signs Date Time Temp Pulse Resp B/P (MAP) Pulse Ox O2 Delivery O2 Flow Rate FiO2 12/17/20 07:15 98.6 90 18 124/69 (87) 96 Room Air 98.6 I&O Intake and Output 12/17/20 07:00 Output Total 600 ml Balance -600 ml Gastric Drainage Total 500 ml Emesis 100 ml # Voids 2 General: Alert, Cooperative HEENT: Other (ng) Abdomen: Soft, No tenderness Labs Laboratory Tests Test 12/16/20 10:09 12/17/20 06:05 White Blood Count 7.5 x10^3/uL (4.0-11.0) Red Blood Count 3.89 x10^6/uL (3.50-5.40) Hemoglobin 12.0 g/dL (12.0-15.5) Hematocrit 35.5 % (36.0-47.0) Mean Corpuscular Volume 91 fL (79-100) Mean Corpuscular Hemoglobin 31 pg (25-35) Mean Corpuscular Hemoglobin Concent 34 g/dL (31-37) Red Cell Distribution Width 13.7 % (11.5-14.5) Platelet Count 145 x10^3/uL (140-400) Sodium Level 136 mmol/L (136-145) 137 mmol/L (136-145) Potassium Level 4.6 mmol/L (3.5-5.1) 4.6 mmol/L (3.5-5.1) Chloride Level 96 mmol/L (98-107) 97 mmol/L (98-107) Carbon Dioxide Level 35 mmol/L (21-32) 33 mmol/L (21-32) Anion Gap 5 (6-14) 7 (6-14) Blood Urea Nitrogen 53 mg/dL (7-20) 52 mg/dL (7-20) Creatinine 1.1 mg/dL (0.6-1.0) 1.2 mg/dL (0.6-1.0) Estimated GFR (Cockcroft-Gault) 56.9 51.4 BUN/Creatinine Ratio 48 (6-20) 43 (6-20) Glucose Level 114 mg/dL (70-99) 122 mg/dL (70-99) Calcium Level 9.1 mg/dL (8.5-10.1) 9.4 mg/dL (8.5-10.1) Total Bilirubin 0.3 mg/dL (0.2-1.0) 0.3 mg/dL (0.2-1.0) Aspartate Amino Transf (AST/SGOT) 30 U/L (15-37) 25 U/L (15-37) Alanine Aminotransferase (ALT/SGPT) 43 U/L (14-59) 43 U/L (14-59) Alkaline Phosphatase 49 U/L (46-116) 51 U/L (46-116) Total Protein 7.4 g/dL (6.4-8.2) 7.5 g/dL (6.4-8.2) Albumin 3.3 g/dL (3.4-5.0) 3.3 g/dL (3.4-5.0) Albumin/Globulin Ratio 0.8 (1.0-1.7) 0.8 (1.0-1.7) Phosphorus Level 3.6 mg/dL (2.6-4.7) Magnesium Level 2.7 mg/dL (1.8-2.4) Laboratory Tests Test 12/16/20 10:09 12/17/20 06:05 White Blood Count 7.5 x10^3/uL (4.0-11.0) Red Blood Count 3.89 x10^6/uL (3.50-5.40) Hemoglobin 12.0 g/dL (12.0-15.5) Hematocrit 35.5 % (36.0-47.0) Mean Corpuscular Volume 91 fL (79-100) Mean Corpuscular Hemoglobin 31 pg (25-35) Mean Corpuscular Hemoglobin Concent 34 g/dL (31-37) Red Cell Distribution Width 13.7 % (11.5-14.5) Platelet Count 145 x10^3/uL (140-400) Sodium Level 136 mmol/L (136-145) 137 mmol/L (136-145) Potassium Level 4.6 mmol/L (3.5-5.1) 4.6 mmol/L (3.5-5.1) Chloride Level 96 mmol/L (98-107) 97 mmol/L (98-107) Carbon Dioxide Level 35 mmol/L (21-32) 33 mmol/L (21-32) Anion Gap 5 (6-14) 7 (6-14) Blood Urea Nitrogen 53 mg/dL (7-20) 52 mg/dL (7-20) Creatinine 1.1 mg/dL (0.6-1.0) 1.2 mg/dL (0.6-1.0) Estimated GFR (Cockcroft-Gault) 56.9 51.4 BUN/Creatinine Ratio 48 (6-20) 43 (6-20) Glucose Level 114 mg/dL (70-99) 122 mg/dL (70-99) Calcium Level 9.1 mg/dL (8.5-10.1) 9.4 mg/dL (8.5-10.1) Total Bilirubin 0.3 mg/dL (0.2-1.0) 0.3 mg/dL (0.2-1.0) Aspartate Amino Transf (AST/SGOT) 30 U/L (15-37) 25 U/L (15-37) Alanine Aminotransferase (ALT/SGPT) 43 U/L (14-59) 43 U/L (14-59) Alkaline Phosphatase 49 U/L (46-116) 51 U/L (46-116) Total Protein 7.4 g/dL (6.4-8.2) 7.5 g/dL (6.4-8.2) Albumin 3.3 g/dL (3.4-5.0) 3.3 g/dL (3.4-5.0) Albumin/Globulin Ratio 0.8 (1.0-1.7) 0.8 (1.0-1.7) Phosphorus Level 3.6 mg/dL (2.6-4.7) Magnesium Level 2.7 mg/dL (1.8-2.4) Problem List Problems Medical Problems: (1) SBO (small bowel obstruction) Status: Acute Assessment/Plan xr improved, some flatus will try sesame seed oil Justicifation of Admission Dx: Justifications for Admission: Justification of Admission Dx: Yes ARCHIE NULL APRN Dec 17, 2020 09:05
--- NOTE | 2020-12-17 09:30 | NUR ---
Sesame seed oil placed down NG.
[2020-12-17] MEDS: TPN PER PHARMACY MC PRN ×2 (12:42→12:54)
--- NOTE | 2020-12-17 13:29 | NUR ---
Pharmacy TPN Dosing Note S: OMAR LYON is a 85 year old F Currently receiving Central Continuous TPN started 12/16/20 B:Pertinent PMH: SBO Height: 5 feet, 2 inches Weight: 72.510657 kg Current diet: NPO LABS: Sodium: 137 Potassium: 4.6 Chloride: 97 Calcium: 9.1 Corrected Calcium: 9.66 Magnesium: - CO2: 33 SCr: 1.2 Glucose: 122 Albumin: 3.3 AST: 30 ALT: 43 TPN FORMULA: TPN TYPE: Central Continuous AMINO ACIDS: 60 gm DEXTROSE: 195 gm LIPIDS: 20 gm SODIUM CHLORIDE: 90 mEq SODIUM ACETATE: - mEq SODIUM PHOSPHATE: - mmol POTASSIUM CHLORIDE: 50 mEq POTASSIUM ACETATE: - mEq POTASSIUM PHOSPHATE: 13.6 mmol MAGNESIUM: 3 mEq CALCIUM: 10 mEq INSULIN: - units MULTIPLE VITAMIN: 5 ml TRACE ELEMENTS: 1 ml ml(s) TPN PLAN: DECREASE MAGS04 TO 3MEQ IN TPN R: Continue TPN AT 63ML/HR Will monitor electrolytes, glucose, and tolerance to TPN. RAMAKRISHNA [facility], 12/17/20 [id number]
--- NOTE | 2020-12-17 14:24 | PDOC ---
[employer] PROGRESS NOTE Date of Service DOS: DATE: 12/17/20 TIME: 14:19 Chief Complaint Chief Complaint Assessment/Plan SBO Elevated Troponins Hypertensive Urgency Hyperglycemia History of Present Illness History of Present Illness Ms Caro is 85-year-old female with past medical history HTN, presents to the ED with complaints of abdominal pain, nausea, and vomiting. She reports epigastric abdominal pain, 10/10. She denies any associated fever, chest pain, or diarrhea. States her last bowel movement was yesterday and she last ate yesterday morning. She has received both of reflexive COVID-19 vaccines. Labs on admission showed platelets 132, BG 138, troponin 0.060, with repeat troponin 0.208, trended down to 0.200. CT abdomen/pelvis showed small bowel obstruction with possible transition point in the distal ileum. She had NG tube placed in the ED. Admitted patient for medical management. 12/11: Pulled out NGT overnight. She is up in the chair, not passing flatus, no BM. Pain 2/10. 12/12: Pain 10. Not passing flatus belching frequently. No further emesis at this time. No chest pain or shortness of breath. Advised we will start IV nutrition today. 12/13: Multiple bouts of emesis failed NG tube placement 3 times radiology to perform under fluoroscopy today. Tolerating PPN well. No CP or SOB. 12/14: No flatus or bowel movement. Tolerating NG tube well. Pain reasonably controlled. BUN elevated. With her lipid panel would favor holding off on lipid formulation and continue PPN, add PPI. 12/15: Did not tolerate clamping with sesame oil. Pain is little worse today. No flatus few bowel sounds. PICC placed and TPN. Afebrile. No flatus or bowel movement. PICC in place. Will transition from PPN to TPN today. Pain is stable. 12/17: Mrs. Caro was seen and evaluated this morning in her room. We discussed her current disposition with her nurse and reviewed her chart. She has transitioned to TPN and her pain remains stable. Vitals/I&O Vitals/I&O: Vital Signs Date Time Temp Pulse Resp B/P (MAP) Pulse Ox O2 Delivery O2 Flow Rate FiO2 12/17/20 11:00 98.0 88 20 120/49 (72) 94 Room Air 98.0 I & O 12/16/20 12/16/20 12/17/20 15:00 23:00 07:00 Output Total 600 ml Balance -600 ml Physical Exam General: Alert, Oriented X3, Cooperative Heart: Regular rate Lungs: Clear Abdomen: Normal bowel sounds, Soft, No tenderness Extremities: No clubbing, No edema, Normal pulses Skin: No rashes, No significant lesion Labs Labs: Laboratory Tests Test 12/17/20 06:05 Sodium Level 137 mmol/L (136-145) Potassium Level 4.6 mmol/L (3.5-5.1) Chloride Level 97 mmol/L (98-107) Carbon Dioxide Level 33 mmol/L (21-32) Anion Gap 7 (6-14) Blood Urea Nitrogen 52 mg/dL (7-20) Creatinine 1.2 mg/dL (0.6-1.0) Estimated GFR (Cockcroft-Gault) 51.4 BUN/Creatinine Ratio 43 (6-20) Glucose Level 122 mg/dL (70-99) Calcium Level 9.4 mg/dL (8.5-10.1) Phosphorus Level 3.6 mg/dL (2.6-4.7) Magnesium Level 2.7 mg/dL (1.8-2.4) Total Bilirubin 0.3 mg/dL (0.2-1.0) Aspartate Amino Transf (AST/SGOT) 25 U/L (15-37) Alanine Aminotransferase (ALT/SGPT) 43 U/L (14-59) Alkaline Phosphatase 51 U/L (46-116) Total Protein 7.5 g/dL (6.4-8.2) Albumin 3.3 g/dL (3.4-5.0) Albumin/Globulin Ratio 0.8 (1.0-1.7) Review of Systems Review of Systems: No bleeding No rashes Assessment and Plan Assessmemt and Plan Problems Medical Problems: (1) SBO (small bowel obstruction) Status: Acute Assessment: 1. Elevated Troponins 2. Hypertensive Urgency 3. Hyperglycemia Plan: 1. Continue to trend labs. 2. Continue prophylaxis (Heparin) 3. Full Code. 4. Home Medications. 5. Discharge disposition pending surgery input. Comment Review of Relevant I have reviewed the following items mekhi (where applicable) has been applied. Medications: Current Medications Medications (Trade) Dose Ordered Sig/Amy Route PRN Reason Start Time Stop Time Status Last Admin Dose Admin Sodium Chloride 90 meq/Potassium Chloride 50 meq/ Potassium Phosphate 13.6 mmol/Magnesium Sulfate 10 meq/ Calcium Gluconate 10 meq/ Multivitamins 5 ml/Zinc/Copper/ Manganese/ Selenium 1 ml/ Total Parenteral Nutrition/Amino Acids/Dextrose/ Fat Emulsion Intravenous 1,512 ml @ 63 mls/hr TPN CONT IV 12/16/20 22:00 12/17/20 21:59 12/16/20 21:23 Justifications for Admission Other Justification FRANCO NAPOLES III DO Dec 17, 2020 14:24
[2020-12-17] MEDS ORDERED: DEXTROSE 70% IV SCH (22:00)
[2020-12-17] MEDS ORDERED: TOTAL PARENTERAL NUTRITION IV SCH (22:00)
[2020-12-17] MEDS ORDERED: [UNRECOGNIZED DRUG - OTHER] IV SCH (22:00)
[2020-12-17] MEDS ORDERED: AMINO ACID IV SCH (22:00)
[2020-12-18] MEDS: ONDANSETRON PF 4 MG/2 ML VIAL. IVP PRN (02:49)
[2020-12-18 03:12] VITALS: BP 121/69
[2020-12-18] MEDS: HEPARIN for SUB-Q USE 5,000 UNIT/ML VIAL. SQ SCH ×2 (05:13→21:55)
[2020-12-18 05:45] LABS: ALBUMIN 3.3 g/dL (3.4-5.0); ALBUMIN/GLOBULIN RATIO 0.8 (1.0-1.7); CALCIUM 9.1 mg/dL (8.5-10.1); CREATININE 1.3 mg/dL (0.6-1.0); GFR 46.9; MAGNESIUM 2.6 mg/dL (1.8-2.4); PHOSPHORUS 3.3 mg/dL (2.6-4.7); TOTAL BILIRUBIN 0.3 mg/dL (0.2-1.0); TOTAL PROTEIN 7.2 g/dL (6.4-8.2)
[2020-12-18 05:48] LABS: POTASSIUM 5.2 mmol/L (3.5-5.1)
[2020-12-18 07:15] VITALS: BP 140/73
[2020-12-18] MEDS: ASPIRIN ENTERIC COATED 81 MG TABLET.DR. PO SCH (08:00)
[2020-12-18] MEDS: PSYLLIUM HUSK (SUGAR FREE) 1 PKT PACKET PO SCH (09:00)
[2020-12-18] MEDS: LOSARTAN POTASSIUM 50 MG TABLET. PO SCH (09:00)
[2020-12-18] MEDS: PANTOPRAZOLE IV PUSH 40 MG VIAL. IVP SCH (09:26)
--- NOTE | 2020-12-18 10:30 | NUR ---
SW following. Discussed with RN. Pt from home alone, room air, NPO - TPN, COVID-19 negative. Pt has NG - output has decreased. Pt gets around independently per RN. SW will continue to follow.
[2020-12-18 10:41] VITALS: BP 124/67
--- NOTE | 2020-12-18 11:40 | PDOC ---
ARCHIE NULL MAINTENANCE SERVICE DISPATCHER 12/18/20 1140: SURGICAL PROGRESS NOTE DATE: 12/18/20 TIME: 11:39 Subjective no stool did have sesame seed oil maybe a little flatus Vital Signs Vital Signs Date Time Temp Pulse Resp B/P (MAP) Pulse Ox O2 Delivery O2 Flow Rate FiO2 12/18/20 10:41 98.1 90 18 124/67 (86) 98 Room Air 98.1 I&O Intake and Output 12/18/20 07:00 Intake Total 0 ml Output Total 800 ml Balance -800 ml Intake Oral 0 ml Output Urine Total 100 ml Gastric Drainage Total 700 ml General: Cooperative, No acute distress HEENT: Other (ng in place) Abdomen: Soft, No tenderness Labs Laboratory Tests Test 12/17/20 06:05 12/18/20 05:10 Sodium Level 137 mmol/L (136-145) 139 mmol/L (136-145) Potassium Level 4.6 mmol/L (3.5-5.1) 5.2 mmol/L (3.5-5.1) Chloride Level 97 mmol/L (98-107) 102 mmol/L (98-107) Carbon Dioxide Level 33 mmol/L (21-32) 33 mmol/L (21-32) Anion Gap 7 (6-14) 4 (6-14) Blood Urea Nitrogen 52 mg/dL (7-20) 49 mg/dL (7-20) Creatinine 1.2 mg/dL (0.6-1.0) 1.3 mg/dL (0.6-1.0) Estimated GFR (Cockcroft-Gault) 51.4 46.9 BUN/Creatinine Ratio 43 (6-20) 38 (6-20) Glucose Level 122 mg/dL (70-99) 137 mg/dL (70-99) Calcium Level 9.4 mg/dL (8.5-10.1) 9.1 mg/dL (8.5-10.1) Phosphorus Level 3.6 mg/dL (2.6-4.7) 3.3 mg/dL (2.6-4.7) Magnesium Level 2.7 mg/dL (1.8-2.4) 2.6 mg/dL (1.8-2.4) Total Bilirubin 0.3 mg/dL (0.2-1.0) 0.3 mg/dL (0.2-1.0) Aspartate Amino Transf (AST/SGOT) 25 U/L (15-37) 20 U/L (15-37) Alanine Aminotransferase (ALT/SGPT) 43 U/L (14-59) 50 U/L (14-59) Alkaline Phosphatase 51 U/L (46-116) 54 U/L (46-116) Total Protein 7.5 g/dL (6.4-8.2) 7.2 g/dL (6.4-8.2) Albumin 3.3 g/dL (3.4-5.0) 3.3 g/dL (3.4-5.0) Albumin/Globulin Ratio 0.8 (1.0-1.7) 0.8 (1.0-1.7) Laboratory Tests Test 12/18/20 05:10 Sodium Level 139 mmol/L (136-145) Potassium Level 5.2 mmol/L (3.5-5.1) Chloride Level 102 mmol/L (98-107) Carbon Dioxide Level 33 mmol/L (21-32) Anion Gap 4 (6-14) Blood Urea Nitrogen 49 mg/dL (7-20) Creatinine 1.3 mg/dL (0.6-1.0) Estimated GFR (Cockcroft-Gault) 46.9 BUN/Creatinine Ratio 38 (6-20) Glucose Level 137 mg/dL (70-99) Calcium Level 9.1 mg/dL (8.5-10.1) Phosphorus Level 3.3 mg/dL (2.6-4.7) Magnesium Level 2.6 mg/dL (1.8-2.4) Total Bilirubin 0.3 mg/dL (0.2-1.0) Aspartate Amino Transf (AST/SGOT) 20 U/L (15-37) Alanine Aminotransferase (ALT/SGPT) 50 U/L (14-59) Alkaline Phosphatase 54 U/L (46-116) Total Protein 7.2 g/dL (6.4-8.2) Albumin 3.3 g/dL (3.4-5.0) Albumin/Globulin Ratio 0.8 (1.0-1.7) Problem List Problems Medical Problems: (1) SBO (small bowel obstruction) Status: Acute Assessment/Plan trial clamping NG Justicifation of Admission Dx: Justifications for Admission: Justification of Admission Dx: Yes BELINDA GUAJARDO MD 12/18/20 1237: SURGICAL PROGRESS NOTE Assessment/Plan Pt seen and examined. Agree with Ms. Null's note Pt without c/o, passing some flatus, denies abd pain abd soft, ND, NTTP will clamp NGT as KUB without obvious obstruction would like to avoid surgery ARCHIE NULL APRN Dec 18, 2020 11:40 BELINDA GUAJARDO MD Dec 18, 2020 12:37
--- NOTE | 2020-12-18 13:43 | PDOC ---
[facility] PROGRESS NOTE Date of Service DOS: DATE: 12/18/20 TIME: 13:38 Chief Complaint Chief Complaint Elevated Troponins Hyperglycemia Hypertensive Urgency History of Present Illness History of Present Illness Ms Caro is 85-year-old female with past medical history HTN, presents to the ED with complaints of abdominal pain, nausea, and vomiting. She reports epigastric abdominal pain, 10/10. She denies any associated fever, chest pain, or diarrhea. States her last bowel movement was yesterday and she last ate yesterday morning. She has received both of reflexive COVID-19 vaccines. Labs on admission showed platelets 132, BG 138, troponin 0.060, with repeat troponin 0.208, trended down to 0.200. CT abdomen/pelvis showed small bowel obstruction with possible transition point in the distal ileum. She had NG tube placed in the ED. Admitted patient for medical management. 12/11: Pulled out NGT overnight. She is up in the chair, not passing flatus, no BM. Pain 2/10. 12/12: Pain 10. Not passing flatus belching frequently. No further emesis at this time. No chest pain or shortness of breath. Advised we will start IV nutrition today. 12/13: Multiple bouts of emesis failed NG tube placement 3 times radiology to perform under fluoroscopy today. Tolerating PPN well. No CP or SOB. 12/14: No flatus or bowel movement. Tolerating NG tube well. Pain reasonably controlled. BUN elevated. With her lipid panel would favor holding off on lipid formulation and continue PPN, add PPI. 12/15: Did not tolerate clamping with sesame oil. Pain is little worse today. No flatus few bowel sounds. PICC placed and TPN. Afebrile. No flatus or bowel movement. PICC in place. Will transition from PPN to TPN today. Pain is stable. 12/17: Mrs. Caro was seen and evaluated this morning in her room. We discussed her current disposition with her nurse and reviewed her chart. She has transitioned to TPN and her pain remains stable. 12/18: Mrs. Caro was examined and seen this morning in her room. We discussed her current disposition with her nurse and reviewed her chart. She continues on TPN and her pain is stable. She mentioned this morning that she is able to produce some flatus. Her NG tube was not clamped this morning. At this time, we will await surgery input into Mrs. Caro's current disposition. Vitals/I&O Vitals/I&O: Vital Signs Date Time Temp Pulse Resp B/P (MAP) Pulse Ox O2 Delivery O2 Flow Rate FiO2 12/18/20 10:41 98.1 90 18 124/67 (86) 98 Room Air 98.1 I & O 12/17/20 12/17/20 12/18/20 15:00 23:00 07:00 Intake Total 0 ml Output Total 600 ml 200 ml Balance -600 ml -200 ml Physical Exam General: Alert, Oriented X3, Cooperative, No acute distress Heart: Regular rate Lungs: Clear Abdomen: Soft, No tenderness Extremities: No clubbing, No edema, Normal pulses Skin: No rashes, No significant lesion Labs Labs: Laboratory Tests Test 12/18/20 05:10 Sodium Level 139 mmol/L (136-145) Potassium Level 5.2 mmol/L (3.5-5.1) Chloride Level 102 mmol/L (98-107) Carbon Dioxide Level 33 mmol/L (21-32) Anion Gap 4 (6-14) Blood Urea Nitrogen 49 mg/dL (7-20) Creatinine 1.3 mg/dL (0.6-1.0) Estimated GFR (Cockcroft-Gault) 46.9 BUN/Creatinine Ratio 38 (6-20) Glucose Level 137 mg/dL (70-99) Calcium Level 9.1 mg/dL (8.5-10.1) Phosphorus Level 3.3 mg/dL (2.6-4.7) Magnesium Level 2.6 mg/dL (1.8-2.4) Total Bilirubin 0.3 mg/dL (0.2-1.0) Aspartate Amino Transf (AST/SGOT) 20 U/L (15-37) Alanine Aminotransferase (ALT/SGPT) 50 U/L (14-59) Alkaline Phosphatase 54 U/L (46-116) Total Protein 7.2 g/dL (6.4-8.2) Albumin 3.3 g/dL (3.4-5.0) Albumin/Globulin Ratio 0.8 (1.0-1.7) Review of Systems Review of Systems: No headache No blood in urine Assessment and Plan Assessmemt and Plan Problems Medical Problems: (1) SBO (small bowel obstruction) Status: Acute Assessment: 1. Elevated Troponins 2. Hypertensive Urgency 3. Hyperglycemia Plan: 1. Continue TPN 2. Continue to trend labs. 3. Continue DVT prophylaxis (Heparin) 4. Full Code 5. Home medications 6. Appreciate subspecialty input (surgery). Comment Review of Relevant I have reviewed the following items mekhi (where applicable) has been applied. Medications: Current Medications Medications (Trade) Dose Ordered Sig/Amy Route PRN Reason Start Time Stop Time Status Last Admin Dose Admin Sodium Chloride 90 meq/Potassium Chloride 50 meq/ Potassium Phosphate 13.6 mmol/Magnesium Sulfate 3 meq/ Calcium Gluconate 10 meq/ Multivitamins 5 ml/Zinc/Copper/ Manganese/ Selenium 1 ml/ Total Parenteral Nutrition/Amino Acids/Dextrose/ Fat Emulsion Intravenous 1,512 ml @ 63 mls/hr TPN CONT IV 12/17/20 22:00 12/18/20 21:59 12/17/20 21:28 Justifications for Admission Other Justification FRANCO NAPOLES III DO Dec 18, 2020 13:43
[2020-12-18 15:02] VITALS: BP 91/69
[2020-12-18] MEDS: TPN PER PHARMACY MC PRN (16:25)
--- NOTE | 2020-12-18 16:25 | NUR ---
Pharmacy TPN Dosing Note S: OMAR LYON is a 85 year old F Currently receiving Central Continuous TPN started 12/16/20 B:Pertinent PMH: SBO Height: 5 feet, 2 inches Weight: 72.1 kg Current diet: NPO LABS: Sodium: 139 Potassium: 5.2 Chloride: 102 Calcium: 9.1 Corrected Calcium: 9.66 Magnesium: 2.6 CO2: 33 SCr: 1.3 Glucose: 137 Albumin: 3.3 AST: 20 ALT: 50 TPN FORMULA: TPN TYPE: Central Continuous AMINO ACIDS: 60 gm DEXTROSE: 195 gm LIPIDS: 20 gm SODIUM CHLORIDE: 90 mEq POTASSIUM CHLORIDE: 20 mEq POTASSIUM PHOSPHATE: 13.6 mmol CALCIUM: 10 mEq MULTIPLE VITAMIN: 5 ml TRACE ELEMENTS: 1 ml TPN PLAN: -Serum potassium high, reduce KCl to 20 mEq/day. -Serum magnesium elevated, remove mag sulfate from TPN. -BMP, mag, phos tomorrow. R: Continue TPN @ current rate and with above formula. Will monitor electrolytes, glucose, and tolerance to TPN. ALYX FRIEDMAN [facility], 12/18/20 0818
[2020-12-18 19:30] VITALS: BP 128/87
[2020-12-18] MEDS ORDERED: TOTAL PARENTERAL NUTRITION IV SCH (22:00)
[2020-12-18] MEDS ORDERED: AMINO ACID IV SCH (22:00)
[2020-12-18] MEDS ORDERED: [UNRECOGNIZED DRUG - OTHER] IV SCH (22:00)
[2020-12-18] MEDS ORDERED: DEXTROSE 70% IV SCH (22:00)
[2020-12-18 23:15] VITALS: BP 121/81
[2020-12-19 03:43] VITALS: BP 112/64
[2020-12-19 06:38] LABS: CALCIUM 9.6 mg/dL (8.5-10.1); CREATININE 1.1 mg/dL (0.6-1.0); GFR 56.9; MAGNESIUM 2.1 mg/dL (1.8-2.4); PHOSPHORUS 3.3 mg/dL (2.6-4.7)
[2020-12-19 06:39] LABS: POTASSIUM 5.2 mmol/L (3.5-5.1)
[2020-12-19 07:30] VITALS: BP 128/66
[2020-12-19] MEDS: PANTOPRAZOLE IV PUSH 40 MG VIAL. IVP SCH (08:30)
[2020-12-19] MEDS: LOSARTAN POTASSIUM 50 MG TABLET. PO SCH (08:30)
[2020-12-19] MEDS: PSYLLIUM HUSK (SUGAR FREE) 1 PKT PACKET PO SCH (08:30)
[2020-12-19] MEDS: ASPIRIN ENTERIC COATED 81 MG TABLET.DR. PO SCH (08:30)
[2020-12-19] MEDS: HEPARIN for SUB-Q USE 5,000 UNIT/ML VIAL. SQ SCH ×2 (08:35→21:15)
--- NOTE | 2020-12-19 09:30 | PDOC ---
[employer] [facility] PROGRESS NOTE Date of Service DOS: DATE: 12/19/20 TIME: 09:26 Chief Complaint Chief Complaint Elevated Troponins Hyperglycemia Hypertensive Urgency History of Present Illness History of Present Illness Ms Caro is 85-year-old female with past medical history HTN, presents to the ED with complaints of abdominal pain, nausea, and vomiting. She reports epigastric abdominal pain, 10/10. She denies any associated fever, chest pain, or diarrhea. States her last bowel movement was yesterday and she last ate yesterday morning. She has received both of reflexive COVID-19 vaccines. Labs on admission showed platelets 132, BG 138, troponin 0.060, with repeat troponin 0.208, trended down to 0.200. CT abdomen/pelvis showed small bowel obstruction with possible transition point in the distal ileum. She had NG tube placed in the ED. Admitted patient for medical management. 12/11: Pulled out NGT overnight. She is up in the chair, not passing flatus, no BM. Pain 2/10. 12/12: Pain 10. Not passing flatus belching frequently. No further emesis at this time. No chest pain or shortness of breath. Advised we will start IV nutrition today. 12/13: Multiple bouts of emesis failed NG tube placement 3 times radiology to perform under fluoroscopy today. Tolerating PPN well. No CP or SOB. 12/14: No flatus or bowel movement. Tolerating NG tube well. Pain reasonably controlled. BUN elevated. With her lipid panel would favor holding off on lipid formulation and continue PPN, add PPI. 12/15: Did not tolerate clamping with sesame oil. Pain is little worse today. No flatus few bowel sounds. PICC placed and TPN. Afebrile. No flatus or bowel movement. PICC in place. Will transition from PPN to TPN today. Pain is stable. 12/17: Mrs. Caro was seen and evaluated this morning in her room. We discussed her current disposition with her nurse and reviewed her chart. She has transitioned to TPN and her pain remains stable. 12/18: Mrs. Caro was examined and seen this morning in her room. We discussed her current disposition with her nurse and reviewed her chart. She continues on TPN and her pain is stable. She mentioned this morning that she is able to produce some flatus. Her NG tube was not clamped this morning. At this time, we will await surgery input into Mrs. Caro's current disposition. 12/19: Mrs. Caro was seen and examined this morning in her room at bedside. We discussed her current disposition with her nurse and reviewed her chart. She was seen by surgery yesterday and her NG tube was clamped. The goal is to avoid surgery at this time. She continues to produce some flatus and continues receiving TPN. Vitals/I&O Vitals/I&O: Vital Signs Date Time Temp Pulse Resp B/P (MAP) Pulse Ox O2 Delivery O2 Flow Rate FiO2 12/19/20 08:30 85 128/66 12/19/20 07:30 98.2 16 97 Room Air 98.2 I & O 12/18/20 12/18/20 12/19/20 15:00 23:00 07:00 Intake Total 0 ml 0 ml Output Total 300 ml 400 ml Balance -300 ml -400 ml 0 ml Physical Exam General: Alert, Oriented X3, Cooperative Heart: Regular rate Lungs: Clear Abdomen: Soft, No tenderness Extremities: No clubbing, No edema, Normal pulses Skin: No rashes Labs Labs: Laboratory Tests Test 12/19/20 06:10 Sodium Level 139 mmol/L (136-145) Potassium Level 5.2 mmol/L (3.5-5.1) Chloride Level 104 mmol/L (98-107) Carbon Dioxide Level 28 mmol/L (21-32) Anion Gap 7 (6-14) Blood Urea Nitrogen 46 mg/dL (7-20) Creatinine 1.1 mg/dL (0.6-1.0) Estimated GFR (Cockcroft-Gault) 56.9 Glucose Level 121 mg/dL (70-99) Calcium Level 9.6 mg/dL (8.5-10.1) Phosphorus Level 3.3 mg/dL (2.6-4.7) Magnesium Level 2.1 mg/dL (1.8-2.4) Review of Systems Review of Systems: No headache No rash Assessment and Plan Assessmemt and Plan Problems Medical Problems: (1) SBO (small bowel obstruction) Status: Acute Assessment: 1. Elevated Troponins 2. Hypertensive Urgency 3. Hyperglycemia Plan: 1. Continue TPN 2. Continue DVT Prophylaxis (Heparin) 3. Continue to trend labs. 4. Full Code. 5. Home Medications. 6. Continue to follow with surgery consultation. Comment Review of Relevant I have reviewed the following items mekhi (where applicable) has been applied. Medications: Current Medications Medications (Trade) Dose Ordered Sig/Amy Route PRN Reason Start Time Stop Time Status Last Admin Dose Admin Sodium Chloride 90 meq/Potassium Chloride 20 meq/ Potassium Phosphate 13.6 mmol/Calcium Gluconate 10 meq/ Multivitamins 5 ml/Zinc/Copper/ Manganese/ Selenium 1 ml/ Total Parenteral Nutrition/Amino Acids/Dextrose/ Fat Emulsion Intravenous 1,512 ml @ 63 mls/hr TPN CONT IV 12/18/20 22:00 12/19/20 21:59 12/18/20 21:51 Justifications for Admission Other Justification FRANCO NAPOLES III DO Dec 19, 2020 09:30
[2020-12-19] MEDS: TPN PER PHARMACY MC PRN (10:30)
--- NOTE | 2020-12-19 10:30 | NUR ---
Pharmacy TPN Dosing Note S: OMAR LYON is a 85 year old F Currently receiving Central Continuous TPN started 12/16/20 B:Pertinent PMH: SBO Height: 5 feet, 2 inches Weight: 72.1 kg Current diet: NPO LABS: Sodium: 139 Potassium: 5.2 Chloride: 104 Calcium: 9.6 Corrected Calcium: 10.16 Magnesium: 2.1 CO2: 28 SCr: 1.1 Glucose: 121 Albumin: 3.3 AST: 20 ALT: 50 TPN FORMULA: TPN TYPE: Central Continuous AMINO ACIDS: 60 gm DEXTROSE: 195 gm LIPIDS: 20 gm POTASSIUM PHOSPHATE: 13.6 mmol CALCIUM: 10 mEq MULTIPLE VITAMIN: 5 ml TRACE ELEMENTS: 1 ml TPN PLAN: -Serum potassium remains slightly elevated, remove KCl from TPN. Still receiving KPhos with ~ 20 mEq/day of potassium. -Other electrolytes appear WNL and stable. -BMP, magnesium tomorrow. R: Continue TPN @ current rate and above changes. Will monitor electrolytes, glucose, and tolerance to TPN. ALYX FRIEDMAN [facility], 12/19/20 1030
--- NOTE | 2020-12-19 10:37 | PDOC ---
SURGICAL PROGRESS NOTE DATE: 12/19/20 TIME: 10:35 Subjective Pt reports doing well, min nausea with NGT clamped, min crampy abd pain, passing flatus and stools Vital Signs Vital Signs Date Time Temp Pulse Resp B/P (MAP) Pulse Ox O2 Delivery O2 Flow Rate FiO2 12/19/20 08:30 85 128/66 12/19/20 07:30 98.2 16 97 Room Air 98.2 I&O Intake and Output 12/19/20 07:00 Intake Total 0 ml Output Total 700 ml Balance -700 ml Intake Oral 0 ml Output Urine Total 700 ml # Voids 1 # Bowel Movements 1 General: Alert, Oriented X3, Cooperative, No acute distress Abdomen: Soft, No tenderness Labs Laboratory Tests Test 12/18/20 05:10 12/19/20 06:10 Sodium Level 139 mmol/L (136-145) 139 mmol/L (136-145) Potassium Level 5.2 mmol/L (3.5-5.1) 5.2 mmol/L (3.5-5.1) Chloride Level 102 mmol/L (98-107) 104 mmol/L (98-107) Carbon Dioxide Level 33 mmol/L (21-32) 28 mmol/L (21-32) Anion Gap 4 (6-14) 7 (6-14) Blood Urea Nitrogen 49 mg/dL (7-20) 46 mg/dL (7-20) Creatinine 1.3 mg/dL (0.6-1.0) 1.1 mg/dL (0.6-1.0) Estimated GFR (Cockcroft-Gault) 46.9 56.9 BUN/Creatinine Ratio 38 (6-20) Glucose Level 137 mg/dL (70-99) 121 mg/dL (70-99) Calcium Level 9.1 mg/dL (8.5-10.1) 9.6 mg/dL (8.5-10.1) Phosphorus Level 3.3 mg/dL (2.6-4.7) 3.3 mg/dL (2.6-4.7) Magnesium Level 2.6 mg/dL (1.8-2.4) 2.1 mg/dL (1.8-2.4) Total Bilirubin 0.3 mg/dL (0.2-1.0) Aspartate Amino Transf (AST/SGOT) 20 U/L (15-37) Alanine Aminotransferase (ALT/SGPT) 50 U/L (14-59) Alkaline Phosphatase 54 U/L (46-116) Total Protein 7.2 g/dL (6.4-8.2) Albumin 3.3 g/dL (3.4-5.0) Albumin/Globulin Ratio 0.8 (1.0-1.7) Laboratory Tests Test 12/19/20 06:10 Sodium Level 139 mmol/L (136-145) Potassium Level 5.2 mmol/L (3.5-5.1) Chloride Level 104 mmol/L (98-107) Carbon Dioxide Level 28 mmol/L (21-32) Anion Gap 7 (6-14) Blood Urea Nitrogen 46 mg/dL (7-20) Creatinine 1.1 mg/dL (0.6-1.0) Estimated GFR (Cockcroft-Gault) 56.9 Glucose Level 121 mg/dL (70-99) Calcium Level 9.6 mg/dL (8.5-10.1) Phosphorus Level 3.3 mg/dL (2.6-4.7) Magnesium Level 2.1 mg/dL (1.8-2.4) Problem List Problems Medical Problems: (1) SBO (small bowel obstruction) Status: Acute Assessment/Plan appears improved and resolved by KUGaro zepeda d/c NGT and cont clears Justicifation of Admission Dx: Justifications for Admission: Justification of Admission Dx: Yes BELINDA GUAJARDO MD Dec 19, 2020 10:37
[2020-12-19 10:58] VITALS: BP 135/75
--- NOTE | 2020-12-19 13:06 | NUR ---
ng removed -tolerated poorly. given chicken broth to sip.
[2020-12-19 14:41] VITALS: BP 118/56
[2020-12-19 19:00] VITALS: BP 110/59
[2020-12-19] MEDS ORDERED: TOTAL PARENTERAL NUTRITION IV SCH (22:00)
[2020-12-19] MEDS ORDERED: AMINO ACID IV SCH (22:00)
[2020-12-19] MEDS ORDERED: [UNRECOGNIZED DRUG - OTHER] IV SCH (22:00)
[2020-12-19] MEDS ORDERED: DEXTROSE 70% IV SCH (22:00)
[2020-12-19 23:06] VITALS: BP 118/65
[2020-12-20 03:00] VITALS: BP 104/49
[2020-12-20 07:00] VITALS: BP 95/41
[2020-12-20 07:10] LABS: CALCIUM 9.5 mg/dL (8.5-10.1); CREATININE 1.2 mg/dL (0.6-1.0); GFR 51.4
[2020-12-20] MEDS: PSYLLIUM HUSK (SUGAR FREE) 1 PKT PACKET PO SCH (08:29)
[2020-12-20] MEDS: PANTOPRAZOLE IV PUSH 40 MG VIAL. IVP SCH (08:30)
[2020-12-20] MEDS: ASPIRIN ENTERIC COATED 81 MG TABLET.DR. PO SCH (08:30)
[2020-12-20] MEDS: HEPARIN for SUB-Q USE 5,000 UNIT/ML VIAL. SQ SCH ×2 (08:39→20:20)
[2020-12-20] MEDS: LOSARTAN POTASSIUM 50 MG TABLET. PO SCH (08:42)
--- NOTE | 2020-12-20 10:15 | NUR ---
SW following. Discussed with RN, pt had NG removed, clear liquid diet. Awaiting further progression. SW will continue to follow.
--- NOTE | 2020-12-20 10:35 | PDOC ---
[employer] [facility] PROGRESS NOTE Date of Service DOS: DATE: 12/20/20 TIME: 10:30 Chief Complaint Chief Complaint Elevated Troponins Hypertensive Urgency Hyperglycemia History of Present Illness History of Present Illness Ms Caro is 85-year-old female with past medical history HTN, presents to the ED with complaints of abdominal pain, nausea, and vomiting. She reports epigastric abdominal pain, 10/10. She denies any associated fever, chest pain, or diarrhea. States her last bowel movement was yesterday and she last ate yesterday morning. She has received both of reflexive COVID-19 vaccines. Labs on admission showed platelets 132, BG 138, troponin 0.060, with repeat troponin 0.208, trended down to 0.200. CT abdomen/pelvis showed small bowel obstruction with possible transition point in the distal ileum. She had NG tube placed in the ED. Admitted patient for medical management. 12/11: Pulled out NGT overnight. She is up in the chair, not passing flatus, no BM. Pain 2/10. 12/12: Pain 10. Not passing flatus belching frequently. No further emesis at this time. No chest pain or shortness of breath. Advised we will start IV nutrition today. 12/13: Multiple bouts of emesis failed NG tube placement 3 times radiology to perform under fluoroscopy today. Tolerating PPN well. No CP or SOB. 12/14: No flatus or bowel movement. Tolerating NG tube well. Pain reasonably controlled. BUN elevated. With her lipid panel would favor holding off on lipid formulation and continue PPN, add PPI. 12/15: Did not tolerate clamping with sesame oil. Pain is little worse today. No flatus few bowel sounds. PICC placed and TPN. Afebrile. No flatus or bowel movement. PICC in place. Will transition from PPN to TPN today. Pain is stable. 12/17: Mrs. Caro was seen and evaluated this morning in her room. We discussed her current disposition with her nurse and reviewed her chart. She has transitioned to TPN and her pain remains stable. 12/18: Mrs. Caro was examined and seen this morning in her room. We discussed her current disposition with her nurse and reviewed her chart. She continues on TPN and her pain is stable. She mentioned this morning that she is able to produce some flatus. Her NG tube was not clamped this morning. At this time, we will await surgery input into Mrs. Caro's current disposition. 12/19: Mrs. Caro was seen and examined this morning in her room at bedside. We discussed her current disposition with her nurse and reviewed her chart. She was seen by surgery yesterday and her NG tube was clamped. The goal is to avoid surgery at this time. She continues to produce some flatus and continues receiving TPN. 12/20: Mrs. Caro was seen and evaluated this morning in her room. She appears much better and her NG tube has been removed. She is now receiving liquids and we will work towards improving her diet. We reviewed Mrs. Caro's chart and discussed her current disposition with her nurse. Vitals/I&O Vitals/I&O: Vital Signs Date Time Temp Pulse Resp B/P (MAP) Pulse Ox O2 Delivery O2 Flow Rate FiO2 12/20/20 08:42 85 95/41 12/20/20 07:00 97.6 16 100 Room Air 97.6 I & O 12/19/20 12/19/20 12/20/20 15:00 23:00 07:00 Intake Total 25 ml Balance 25 ml Physical Exam General: Alert, Oriented X3, Cooperative, No acute distress Heart: Regular rate Lungs: Clear Abdomen: Soft, No tenderness Extremities: No clubbing, No edema, Normal pulses Skin: No rashes Labs Labs: Laboratory Tests Test 12/20/20 06:00 Sodium Level 138 mmol/L (136-145) Potassium Level 5.0 mmol/L (3.5-5.1) Chloride Level 103 mmol/L (98-107) Carbon Dioxide Level 28 mmol/L (21-32) Anion Gap 7 (6-14) Blood Urea Nitrogen 57 mg/dL (7-20) Creatinine 1.2 mg/dL (0.6-1.0) Estimated GFR (Cockcroft-Gault) 51.4 Glucose Level 138 mg/dL (70-99) Calcium Level 9.5 mg/dL (8.5-10.1) Review of Systems Review of Systems: No headache No rashes Assessment and Plan Assessmemt and Plan Problems Medical Problems: (1) SBO (small bowel obstruction) Status: Acute Assessment: 1. Elevated Troponins 2. Hyperglycemia 3. Hypertensive Urgency Plan: 1. Continue clear liquids and improvement of diet. 2. Continue DVT prophylaxis (Heparin). 3. Continue to trend labs. 4. Full code. 5. Home medications. Comment Review of Relevant I have reviewed the following items mekhi (where applicable) has been applied. Medications: Current Medications Medications (Trade) Dose Ordered Sig/Amy Route PRN Reason Start Time Stop Time Status Last Admin Dose Admin Sodium Chloride 90 meq/Potassium Phosphate 13.6 mmol/Calcium Gluconate 10 meq/ Multivitamins 5 ml/Zinc/Copper/ Manganese/ Selenium 1 ml/ Total Parenteral Nutrition/Amino Acids/Dextrose/ Fat Emulsion Intravenous 1,512 ml @ 63 mls/hr TPN CONT IV 12/19/20 22:00 12/20/20 21:59 12/19/20 21:12 Justifications for Admission Other Justification FRANCO NAPOLES III DO Dec 20, 2020 10:35
[2020-12-20 11:00] VITALS: BP 113/58
--- NOTE | 2020-12-20 11:08 | PDOC ---
SURGICAL PROGRESS NOTE DATE: 12/20/20 TIME: 11:08 Subjective Patient is doing well tolerating clear liquids Vital Signs Vital Signs Date Time Temp Pulse Resp B/P (MAP) Pulse Ox O2 Delivery O2 Flow Rate FiO2 12/20/20 08:42 85 95/41 12/20/20 07:00 97.6 16 100 Room Air 97.6 I&O Intake and Output 12/20/20 07:00 Intake Total 25 ml Balance 25 ml Intake Oral 25 ml # Voids 1 PATIENT HAS A SCHROEDER: No General: Alert, Oriented X3, Cooperative, No acute distress Abdomen: Normal bowel sounds, Soft, No tenderness Labs Laboratory Tests Test 12/19/20 06:10 12/20/20 06:00 Sodium Level 139 mmol/L (136-145) 138 mmol/L (136-145) Potassium Level 5.2 mmol/L (3.5-5.1) 5.0 mmol/L (3.5-5.1) Chloride Level 104 mmol/L (98-107) 103 mmol/L (98-107) Carbon Dioxide Level 28 mmol/L (21-32) 28 mmol/L (21-32) Anion Gap 7 (6-14) 7 (6-14) Blood Urea Nitrogen 46 mg/dL (7-20) 57 mg/dL (7-20) Creatinine 1.1 mg/dL (0.6-1.0) 1.2 mg/dL (0.6-1.0) Estimated GFR (Cockcroft-Gault) 56.9 51.4 Glucose Level 121 mg/dL (70-99) 138 mg/dL (70-99) Calcium Level 9.6 mg/dL (8.5-10.1) 9.5 mg/dL (8.5-10.1) Phosphorus Level 3.3 mg/dL (2.6-4.7) Magnesium Level 2.1 mg/dL (1.8-2.4) Laboratory Tests Test 12/20/20 06:00 Sodium Level 138 mmol/L (136-145) Potassium Level 5.0 mmol/L (3.5-5.1) Chloride Level 103 mmol/L (98-107) Carbon Dioxide Level 28 mmol/L (21-32) Anion Gap 7 (6-14) Blood Urea Nitrogen 57 mg/dL (7-20) Creatinine 1.2 mg/dL (0.6-1.0) Estimated GFR (Cockcroft-Gault) 51.4 Glucose Level 138 mg/dL (70-99) Calcium Level 9.5 mg/dL (8.5-10.1) Problem List Problems Medical Problems: (1) SBO (small bowel obstruction) Status: Acute Assessment/Plan Resolving small bowel obstruction advance diet to full liquids Justicifation of Admission Dx: Justifications for Admission: Justification of Admission Dx: Yes LUNA CHOW MD Dec 20, 2020 11:08
[2020-12-20] MEDS: TPN PER PHARMACY MC PRN (12:54)
--- NOTE | 2020-12-20 12:54 | NUR ---
Pharmacy TPN Dosing Note S: OMAR LYON is a 85 year old F Currently receiving Central Continuous TPN started 12/16/20 B:Pertinent PMH: SBO Height: 5 feet, 2 inches Weight: 72.603142 kg Current diet: full liquid diet LABS: Sodium: 138 Potassium: 5 Chloride: 103 Calcium: 9.5 Corrected Calcium: 10.06 Magnesium: 2.1 CO2: 28 SCr: 1.2 Glucose: 138 Albumin: 3.3 AST: 20 ALT: 50 TPN FORMULA: TPN TYPE: Central Continuous AMINO ACIDS: 60 gm DEXTROSE: 195 gm LIPIDS: 20 gm SODIUM CHLORIDE: 90 mEq POTASSIUM PHOSPHATE: 13.6 mmol CALCIUM: 10 mEq MULTIPLE VITAMIN: 5 ml TRACE ELEMENTS: 1 ml ml(s) TPN PLAN: K 5 today, improving. Advanced to full liquid diet today, anticipate TPN could be stopped soon. Will continue current formula. -BMP in AM per hospitalist. R: Continue same TPN formula. Will monitor electrolytes, glucose, and tolerance to TPN. KRISTIAN PULLIAM [facility], 12/20/20 [id number]
[2020-12-20 15:00] VITALS: BP 103/56
[2020-12-20] MEDS: MORPHINE SULFATE 4 MG/ML INJ. IV PRN (17:15)
[2020-12-20 19:30] VITALS: BP 103/46
[2020-12-20] MEDS ORDERED: AMINO ACID IV SCH (22:00)
[2020-12-20] MEDS ORDERED: DEXTROSE 70% IV SCH (22:00)
[2020-12-20] MEDS ORDERED: [UNRECOGNIZED DRUG - OTHER] IV SCH (22:00)
[2020-12-20] MEDS ORDERED: TOTAL PARENTERAL NUTRITION IV SCH (22:00)
[2020-12-20 22:53] VITALS: BP 93/56
[2020-12-21 02:53] VITALS: BP 114/58
[2020-12-21 04:53] LABS: CALCIUM 9.2 mg/dL (8.5-10.1); CREATININE 1.2 mg/dL (0.6-1.0); GFR 51.4; POTASSIUM 4.6 mmol/L (3.5-5.1)
[2020-12-21 07:00] VITALS: BP 117/51
[2020-12-21] MEDS: PSYLLIUM HUSK (SUGAR FREE) 1 PKT PACKET PO SCH (07:55)
[2020-12-21] MEDS: ASPIRIN ENTERIC COATED 81 MG TABLET.DR. PO SCH (07:56)
[2020-12-21] MEDS: PANTOPRAZOLE IV PUSH 40 MG VIAL. IVP SCH (07:56)
[2020-12-21] MEDS: HEPARIN for SUB-Q USE 5,000 UNIT/ML VIAL. SQ SCH ×2 (08:08→21:37)
[2020-12-21] MEDS: LOSARTAN POTASSIUM 50 MG TABLET. PO SCH (09:00)
--- NOTE | 2020-12-21 09:04 | PDOC ---
ARCHIE NULL [employer] 12/21/20 0904: SURGICAL PROGRESS NOTE DATE: 12/21/20 TIME: 09:02 Subjective taking some liquids, had some orange juice d/w nursing--did not take much yesterday stool documented in computer for 12/19 Vital Signs Vital Signs Date Time Temp Pulse Resp B/P (MAP) Pulse Ox O2 Delivery O2 Flow Rate FiO2 12/21/20 07:00 98.0 72 18 117/51 (73) 95 Room Air 98.0 I&O Intake and Output 12/21/20 07:00 Intake Total 0 ml Output Total 950 ml Balance -950 ml Intake Oral 0 ml Output Urine Total 950 ml # Voids 4 General: Alert, Cooperative Abdomen: Soft, No tenderness Labs Laboratory Tests Test 12/20/20 06:00 12/21/20 04:35 Sodium Level 138 mmol/L (136-145) 136 mmol/L (136-145) Potassium Level 5.0 mmol/L (3.5-5.1) 4.6 mmol/L (3.5-5.1) Chloride Level 103 mmol/L (98-107) 101 mmol/L (98-107) Carbon Dioxide Level 28 mmol/L (21-32) 27 mmol/L (21-32) Anion Gap 7 (6-14) 8 (6-14) Blood Urea Nitrogen 57 mg/dL (7-20) 64 mg/dL (7-20) Creatinine 1.2 mg/dL (0.6-1.0) 1.2 mg/dL (0.6-1.0) Estimated GFR (Cockcroft-Gault) 51.4 51.4 Glucose Level 138 mg/dL (70-99) 130 mg/dL (70-99) Calcium Level 9.5 mg/dL (8.5-10.1) 9.2 mg/dL (8.5-10.1) Laboratory Tests Test 12/21/20 04:35 Sodium Level 136 mmol/L (136-145) Potassium Level 4.6 mmol/L (3.5-5.1) Chloride Level 101 mmol/L (98-107) Carbon Dioxide Level 27 mmol/L (21-32) Anion Gap 8 (6-14) Blood Urea Nitrogen 64 mg/dL (7-20) Creatinine 1.2 mg/dL (0.6-1.0) Estimated GFR (Cockcroft-Gault) 51.4 Glucose Level 130 mg/dL (70-99) Calcium Level 9.2 mg/dL (8.5-10.1) Problem List Problems Medical Problems: (1) SBO (small bowel obstruction) Status: Acute Assessment/Plan full liquids for now, tpn until diet improved Justicifation of Admission Dx: Justifications for Admission: Justification of Admission Dx: Yes BELINDA GUAJARDO MD 12/21/20 7849: SURGICAL PROGRESS NOTE Assessment/Plan Pt seen and examined. Agree with Ms. Null's note Pt with episode of N/V earlier abd soft, ND, NTTP will monitor but if not improved, may need to consider operative intervention. d/w pt and pt's family. ARCHIE NULL [employer] Dec 21, 2020 09:04 BELINDA GUAJARDO MD Dec 21, 2020 16:59
--- NOTE | 2020-12-21 10:39 | NUR ---
SW following. Discussed with RN, pt from home, room air, full liquid diet - TPN. Pt does not really have an appetite. COVID-19 negative. RN advised no SW needs at this time. SW will continue to follow.
[2020-12-21 10:41] VITALS: BP 116/54
[2020-12-21] MEDS: TPN PER PHARMACY MC PRN (11:33)
--- NOTE | 2020-12-21 11:34 | NUR ---
Pharmacy TPN Dosing Note S: OMAR LYON is a 85 year old F Currently receiving Central Continuous TPN started 12/16/20 B:Pertinent PMH: SBO Height: 5 feet, 2 inches Weight: 72.485206 kg Current diet: full liquid diet LABS: Sodium: 136 Potassium: 4.6 Chloride: 101 Calcium: 9.2 Corrected Calcium: 9.76 Magnesium: 2.1 CO2: 27 SCr: 1.2 Glucose: 130 Albumin: 3.3 AST: 20 ALT: 50 TPN FORMULA: TPN TYPE: Central Continuous AMINO ACIDS: 60 gm DEXTROSE: 195 gm LIPIDS: 20 gm SODIUM CHLORIDE: 90 mEq POTASSIUM CHLORIDE: 25 mEq POTASSIUM PHOSPHATE: 13.6 mmol CALCIUM: 10 mEq MULTIPLE VITAMIN: 5 ml TRACE ELEMENTS: 1 ml ml(s) TPN PLAN: K trending down - will add KCl 25 meq to TPN. Continue TPN per surgery until diet improves- not eating enough. Continue on full liquid diet. -BMP, Mag, Phos and TG in AM. R: Change TPN as noted above. Will monitor electrolytes, glucose, and tolerance to TPN. KRISTIAN PULLIAM [facility], 12/21/20 8299
--- NOTE | 2020-12-21 12:55 | PDOC ---
[facility] PROGRESS NOTE Date of Service DOS: DATE: 12/21/20 TIME: 12:48 Chief Complaint Chief Complaint Elevated Troponins. Hyperglycemia Hypertensive Urgency History of Present Illness History of Present Illness Ms Caro is 85-year-old female with past medical history HTN, presents to the ED with complaints of abdominal pain, nausea, and vomiting. She reports epigastric abdominal pain, 10/10. She denies any associated fever, chest pain, or diarrhea. States her last bowel movement was yesterday and she last ate yesterd ay morning. She has received both of reflexive COVID-19 vaccines. Labs on admission showed platelets 132, BG 138, troponin 0.060, with repeat troponin 0.208, trended down to 0.200. CT abdomen/pelvis showed small bowel obstruction with possible transition point in the distal ileum. She had NG tube placed in the ED. Admitted patient for medical management. 12/11: Pulled out NGT overnight. She is up in the chair, not passing flatus, no BM. Pain 2/10. 12/12: Pain 10. Not passing flatus belching frequently. No further emesis at this time. No chest pain or shortness of breath. Advised we will start IV nutrition today. 12/13: Multiple bouts of emesis failed NG tube placement 3 times radiology to perform under fluoroscopy today. Tolerating PPN well. No CP or SOB. 12/14: No flatus or bowel movement. Tolerating NG tube well. Pain reasonably controlled. BUN elevated. With her lipid panel would favor holding off on lipid formulation and continue PPN, add PPI. 12/15: Did not tolerate clamping with sesame oil. Pain is little worse today. No flatus few bowel sounds. PICC placed and TPN. Afebrile. No flatus or bowel movement. PICC in place. Will transition from PPN to TPN today. Pain is stable. 12/17: Mrs. Caro was seen and evaluated this morning in her room. We discussed her current disposition with her nurse and reviewed her chart. She has transitioned to TPN and her pain remains stable. 12/18: Mrs. Caro was examined and seen this morning in her room. We discussed her current disposition with her nurse and reviewed her chart. She continues on TPN and her pain is stable. She mentioned this morning that she is able to produce some flatus. Her NG tube was not clamped this morning. At this time, we will await surgery input into Mrs. Caro's current disposition. 12/19: Mrs. Caro was seen and examined this morning in her room at bedside. We discussed her current disposition with her nurse and reviewed her chart. She was seen by surgery yesterday and her NG tube was clamped. The goal is to avoid surgery at this time. She continues to produce some flatus and continues receiving TPN. 12/20: Mrs. Caro was seen and evaluated this morning in her room. She appears much better and her NG tube has been removed. She is now receiving liquids and we will work towards improving her diet. We reviewed Mrs. Caro's chart and discussed her current disposition with her nurse. 12/21: Mrs. Caro was seen and examined this morning at bedside in her room. She was sitting up, comfortable, awake and alert. Mrs. Caro continues to improve and her NG tube remains removed. She is still receiving TPN and is currently on clear liquids and jello. We will continue to work with GI to advance her diet. We discussed Mrs. Caro's disposition with her nurse and reviewed her chart. Vitals/I&O Vitals/I&O: Vital Signs Date Time Temp Pulse Resp B/P (MAP) Pulse Ox O2 Delivery O2 Flow Rate FiO2 12/21/20 10:41 98.2 76 16 116/54 (74) 95 Room Air 98.2 I & O 12/20/20 12/20/20 12/21/20 15:00 23:00 07:00 Intake Total 0 ml Output Total 400 ml 550 ml Balance -400 ml -550 ml 0 ml Physical Exam General: Alert, Oriented X3, Cooperative Heart: Regular rate Lungs: Clear Abdomen: Soft, No tenderness Extremities: No clubbing, No edema, Normal pulses Skin: No rashes Labs Labs: Laboratory Tests Test 12/21/20 04:35 Sodium Level 136 mmol/L (136-145) Potassium Level 4.6 mmol/L (3.5-5.1) Chloride Level 101 mmol/L (98-107) Carbon Dioxide Level 27 mmol/L (21-32) Anion Gap 8 (6-14) Blood Urea Nitrogen 64 mg/dL (7-20) Creatinine 1.2 mg/dL (0.6-1.0) Estimated GFR (Cockcroft-Gault) 51.4 Glucose Level 130 mg/dL (70-99) Calcium Level 9.2 mg/dL (8.5-10.1) Review of Systems Review of Systems: No rash. No headache. Assessment and Plan Assessmemt and Plan Problems Medical Problems: (1) SBO (small bowel obstruction) Status: Acute Assessment: 1. Elevated Troponins 2. Hyperglycemia 3. Hypertensive Urgency Plan: 1. Continue DVT prophylaxis (Heparin). 2. Continue to trend labs. 3. Full code. 4. Home medications. 5. Continue to work to advance diet. Comment Review of Relevant I have reviewed the following items mekhi (where applicable) has been applied. Medications: Current Medications Medications (Trade) Dose Ordered Sig/Amy Route PRN Reason Start Time Stop Time Status Last Admin Dose Admin Sodium Chloride 90 meq/Potassium Phosphate 13.6 mmol/Calcium Gluconate 10 meq/ Multivitamins 5 ml/Zinc/Copper/ Manganese/ Selenium 1 ml/ Total Parenteral Nutrition/Amino Acids/Dextrose/ Fat Emulsion Intravenous 1,512 ml @ 63 mls/hr TPN CONT IV 12/20/20 22:00 12/21/20 21:59 12/20/20 22:04 Justifications for Admission Other Justification FRANCO NAPOLES III DO Dec 21, 2020 12:55
[2020-12-21] MEDS: MORPHINE SULFATE 4 MG/ML INJ. IV PRN (14:33)
[2020-12-21] MEDS: ONDANSETRON PF 4 MG/2 ML VIAL. IVP PRN (14:41)
[2020-12-21 15:11] VITALS: BP 104/51
[2020-12-21 19:30] VITALS: BP 97/46
[2020-12-21] MEDS ORDERED: DEXTROSE 70% IV SCH (22:00)
[2020-12-21] MEDS ORDERED: TOTAL PARENTERAL NUTRITION IV SCH (22:00)
[2020-12-21] MEDS ORDERED: AMINO ACID IV SCH (22:00)
[2020-12-21] MEDS ORDERED: [UNRECOGNIZED DRUG - OTHER] IV SCH (22:00)
[2020-12-21 23:22] VITALS: BP 102/48
[2020-12-22 03:20] VITALS: BP 98/53
[2020-12-22 04:35] LABS: CALCIUM 9.4 mg/dL (8.5-10.1); CREATININE 1.2 mg/dL (0.6-1.0); GFR 51.4; MAGNESIUM 1.6 mg/dL (1.8-2.4); PHOSPHORUS 3.8 mg/dL (2.6-4.7)
[2020-12-22 07:00] VITALS: BP 111/48
[2020-12-22] MEDS: ASPIRIN ENTERIC COATED 81 MG TABLET.DR. PO SCH (08:25)
[2020-12-22] MEDS: PSYLLIUM HUSK (SUGAR FREE) 1 PKT PACKET PO SCH (08:25)
[2020-12-22] MEDS: PANTOPRAZOLE IV PUSH 40 MG VIAL. IVP SCH (08:25)
[2020-12-22] MEDS: HEPARIN for SUB-Q USE 5,000 UNIT/ML VIAL. SQ SCH ×2 (08:33→21:40)
--- NOTE | 2020-12-22 08:35 | PDOC ---
SURGICAL PROGRESS NOTE DATE: 12/22/20 TIME: 08:32 Subjective Patient resting comfortably Vital Signs Vital Signs Date Time Temp Pulse Resp B/P (MAP) Pulse Ox O2 Delivery O2 Flow Rate FiO2 12/22/20 03:20 98.3 79 16 98/53 (68) 97 Room Air 98.3 I&O Intake and Output 12/22/20 07:00 Intake Total 120 ml Output Total 710 ml Balance -590 ml Intake Oral 120 ml Output Urine Total 700 ml Emesis 10 ml # Voids 2 PATIENT HAS A SCHROEDER: No General: Alert, Cooperative, mild distress Abdomen: Normal bowel sounds, Soft, Other (Nontender to palpation) Labs Laboratory Tests Test 12/21/20 04:35 12/22/20 03:27 Sodium Level 136 mmol/L (136-145) 138 mmol/L (136-145) Potassium Level 4.6 mmol/L (3.5-5.1) 5.0 mmol/L (3.5-5.1) Chloride Level 101 mmol/L (98-107) 104 mmol/L (98-107) Carbon Dioxide Level 27 mmol/L (21-32) 27 mmol/L (21-32) Anion Gap 8 (6-14) 7 (6-14) Blood Urea Nitrogen 64 mg/dL (7-20) 58 mg/dL (7-20) Creatinine 1.2 mg/dL (0.6-1.0) 1.2 mg/dL (0.6-1.0) Estimated GFR (Cockcroft-Gault) 51.4 51.4 Glucose Level 130 mg/dL (70-99) 101 mg/dL (70-99) Calcium Level 9.2 mg/dL (8.5-10.1) 9.4 mg/dL (8.5-10.1) Phosphorus Level 3.8 mg/dL (2.6-4.7) Magnesium Level 1.6 mg/dL (1.8-2.4) Triglycerides Level 69 mg/dL (0-150) Laboratory Tests Test 12/22/20 03:27 Sodium Level 138 mmol/L (136-145) Potassium Level 5.0 mmol/L (3.5-5.1) Chloride Level 104 mmol/L (98-107) Carbon Dioxide Level 27 mmol/L (21-32) Anion Gap 7 (6-14) Blood Urea Nitrogen 58 mg/dL (7-20) Creatinine 1.2 mg/dL (0.6-1.0) Estimated GFR (Cockcroft-Gault) 51.4 Glucose Level 101 mg/dL (70-99) Calcium Level 9.4 mg/dL (8.5-10.1) Phosphorus Level 3.8 mg/dL (2.6-4.7) Magnesium Level 1.6 mg/dL (1.8-2.4) Triglycerides Level 69 mg/dL (0-150) Problem List Problems Medical Problems: (1) SBO (small bowel obstruction) Status: Acute Assessment/Plan Small bowel obstruction although had bowel movement abdominal films pending Continue supportive care Justicifation of Admission Dx: Justifications for Admission: Justification of Admission Dx: Yes LUNA CHOW MD Dec 22, 2020 08:35
--- NOTE | 2020-12-22 08:35 | RAD ---
Abdomen supine and upright views 12/22/2020. Reason for exam: Small bowel obstruction. Comparison is made with a study of 12/16/2020. No free air is seen. Gas is present within what may be a combination of large and small bowel. An NG tube present previously has been removed. There is greater distention of bowel in the upper abdomen, although at least some of this is thought to be redundant colon. No abnormal masses or gas collection s are seen. IMPRESSION: Distention of bowel, at least partly colon. Removal of NG. Electronically signed by: Estevan Malcolm Jr., MD (12/22/2020 8:33 AM) [id number]
[2020-12-22] MEDS: LOSARTAN POTASSIUM 50 MG TABLET. PO SCH (08:41)
[2020-12-22] MEDS: TPN PER PHARMACY MC PRN (09:26)
--- NOTE | 2020-12-22 09:29 | NUR ---
Pharmacy TPN Dosing Note S: OMAR LYON is a 85 year old F Currently receiving Central Continuous TPN started 12/16/20 B:Pertinent PMH: SBO Height: 5 feet, 2 inches Weight: 72.645118 kg Current diet: full liquid diet LABS: Sodium: 138 Potassium: 5 Chloride: 104 Calcium: 9.4 Corrected Calcium: 9.96 Magnesium: 1.6 CO2: 27 SCr: 1.2 Glucose: 101 Albumin: 3.3 AST: 20 ALT: 50 TPN FORMULA: TPN TYPE: Central Continuous AMINO ACIDS: 60 gm DEXTROSE: 195 gm LIPIDS: 20 gm SODIUM CHLORIDE: 90 mEq POTASSIUM PHOSPHATE: 13.6 mmol MAGNESIUM: 10 mEq CALCIUM: 10 mEq MULTIPLE VITAMIN: 5 ml TRACE ELEMENTS: 1 ml ml(s) TPN PLAN: Potassium removed d/t high normal K+ Magnesium added to TPN with low Mg2+ today. R: Change TPN per plan and ordered formula Will monitor electrolytes, glucose, and tolerance to TPN. Eva Knutson RPH, 12/22/20 0993
--- NOTE | 2020-12-22 10:35 | PDOC ---
[employer] [facility] PROGRESS NOTE Date of Service DOS: DATE: 12/22/20 TIME: 10:29 Chief Complaint Chief Complaint Small Bowel Obstruction Elevated Troponins. Hyperglycemia Hypertensive Urgency History of Present Illness History of Present Illness Ms Caro is 85-year-old female with past medical history HTN, presents to the ED with complaints of abdominal pain, nausea, and vomiting. She reports epigastric abdominal pain, 10/10. She denies any associated fever, chest pain, or diarrhea. States her last bowel movement was yesterday and she last ate yesterday morning. She has received both of reflexive COVID-19 vaccines. Labs on admission showed platelets 132, BG 138, troponin 0.060, with repeat troponin 0.208, trended down to 0.200. CT abdomen/pelvis showed small bowel obstruction with possible transition point in the distal ileum. She had NG tube placed in the ED. Admitted patient for medical management. 12/11: Pulled out NGT overnight. She is up in the chair, not passing flatus, no BM. Pain 2/10. 12/12: Pain 10. Not passing flatus belching frequently. No further emesis at this time. No chest pain or shortness of breath. Advised we will start IV nutrition today. 12/13: Multiple bouts of emesis failed NG tube placement 3 times radiology to perform under fluoroscopy today. Tolerating PPN well. No CP or SOB. 12/14: No flatus or bowel movement. Tolerating NG tube well. Pain reasonably controlled. BUN elevated. With her lipid panel would favor holding off on lipid formulation and continue PPN, add PPI. 12/15: Did not tolerate clamping with sesame oil. Pain is little worse today. No flatus few bowel sounds. PICC placed and TPN. Afebrile. No flatus or bowel movement. PICC in place. Will transition from PPN to TPN today. Pain is stable. 12/17: Mrs. Caro was seen and evaluated this morning in her room. We discussed her current disposition with her nurse and reviewed her chart. She has transitioned to TPN and her pain remains stable. 12/18: Mrs. Caro was examined and seen this morning in her room. We discussed her current disposition with her nurse and reviewed her chart. She continues on TPN and her pain is stable. She mentioned this morning that she is able to produce some flatus. Her NG tube was not clamped this morning. At this time, we will await surgery input into Mrs. Caro's current disposition. 12/19: Mrs. Caro was seen and examined this morning in her room at bedside. We discussed her current disposition with her nurse and reviewed her chart. She was seen by surgery yesterday and her NG tube was clamped. The goal is to avoid surgery at this time. She continues to produce some flatus and continues receiving TPN. 12/20: Mrs. Caro was seen and evaluated this morning in her room. She appears much better and her NG tube has been removed. She is now receiving liquids and we will work towards improving her diet. We reviewed Mrs. Caro's chart and discussed her current disposition with her nurse. 12/21: Mrs. Caro was seen and examined this morning at bedside in her room. She was sitting up, comfortable, awake and alert. Mrs. Caro continues to improve and her NG tube remains removed. She is still receiving TPN and is currently on clear liquids and jello. We will continue to work with GI to advance her diet. We discussed Mrs. Caro's disposition with her nurse and reviewed her chart. 12/22: Mrs. Caro was examined and seen this morning in her room. She continues to improve her diet, as she is now eating about a spoonful or two of oatmeal. She states that her diet is normally very light, but when asked, she felt that she was not back to her usual baseline. We discussed with Mrs. Caro that we will continue to advance her diet as she slowly improves with this. We will continue to work with GI for consultation. We discussed Mrs. Caro's current disposition with her nurse and reviewed her chart. She continues TPN. Vitals/I&O Vitals/I&O: Vital Signs Date Time Temp Pulse Resp B/P (MAP) Pulse Ox O2 Delivery O2 Flow Rate FiO2 12/22/20 08:00 Room Air 12/22/20 07:00 98.0 75 18 111/48 (69) 95 98.0 I & O 12/21/20 12/21/20 12/22/20 15:00 23:00 07:00 Intake Total 120 ml Output Total 110 ml 300 ml 300 ml Balance -110 ml -300 ml -180 ml Physical Exam General: Alert, Oriented X3, Cooperative Heart: Regular rate, No murmurs Lungs: Clear Abdomen: Normal bowel sounds, Other (Nontender to palpation) Extremities: No clubbing, No edema, Normal pulses Skin: No rashes Labs Labs: Laboratory Tests Test 12/22/20 03:27 Sodium Level 138 mmol/L (136-145) Potassium Level 5.0 mmol/L (3.5-5.1) Chloride Level 104 mmol/L (98-107) Carbon Dioxide Level 27 mmol/L (21-32) Anion Gap 7 (6-14) Blood Urea Nitrogen 58 mg/dL (7-20) Creatinine 1.2 mg/dL (0.6-1.0) Estimated GFR (Cockcroft-Gault) 51.4 Glucose Level 101 mg/dL (70-99) Calcium Level 9.4 mg/dL (8.5-10.1) Phosphorus Level 3.8 mg/dL (2.6-4.7) Magnesium Level 1.6 mg/dL (1.8-2.4) Triglycerides Level 69 mg/dL (0-150) Review of Systems Review of Systems: No rashes No fever Assessment and Plan Assessmemt and Plan Problems Medical Problems: (1) SBO (small bowel obstruction) Status: Acute Assessment: 1. SBO 2. Elevated troponins 3. Hypertensive urgency 4. Hyperglycemia Plan: 1. Continue to advance diet. 2. Work towards weening off TPN. 3. Continue DVT Prophylaxis. 4. Continue to follow-up with GI. 5. Full Code Comment Review of Relevant I have reviewed the following items mekhi (where applicable) has been applied. Medications: Current Medications Medications (Trade) Dose Ordered Sig/Amy Route PRN Reason Start Time Stop Time Status Last Admin Dose Admin Sodium Chloride 90 meq/Potassium Phosphate 13.6 mmol/Calcium Gluconate 10 meq/ Multivitamins 5 ml/Zinc/Copper/ Manganese/ Selenium 1 ml/ Potassium Chloride 25 meq/ Total Parenteral Nutrition/Amino Acids/Dextrose/ Fat Emulsion Intravenous 1,512 ml @ 63 mls/hr TPN CONT IV 12/21/20 22:00 12/22/20 21:59 12/21/20 21:32 Justifications for Admission Other Justification FRANCO NAPOLES III DO Dec 22, 2020 10:35
[2020-12-22] MEDS: ONDANSETRON PF 4 MG/2 ML VIAL. IVP PRN (10:54)
[2020-12-22 11:00] VITALS: BP 132/50
[2020-12-22 15:00] VITALS: BP 116/65
--- NOTE | 2020-12-22 19:03 | NUR ---
Paged Dr. Klein pt vomiting. Received orders for NG to LIS.
[2020-12-22 19:56] VITALS: BP 152/61
[2020-12-22] MEDS: MORPHINE SULFATE 4 MG/ML INJ. IV PRN (21:39)
[2020-12-22] MEDS ORDERED: [UNRECOGNIZED DRUG - OTHER] IV SCH (22:00)
[2020-12-22] MEDS ORDERED: AMINO ACID IV SCH (22:00)
[2020-12-22] MEDS ORDERED: TOTAL PARENTERAL NUTRITION IV SCH (22:00)
[2020-12-22] MEDS ORDERED: DEXTROSE 70% IV SCH (22:00)
[2020-12-22 23:40] VITALS: BP 118/47
[2020-12-23 03:38] VITALS: BP_SYST 103; BP_SYST 155; BP_DIAS 52; BP_DIAS 74
[2020-12-23] MEDS: PANTOPRAZOLE IV PUSH 40 MG VIAL. IVP SCH (05:31)
[2020-12-23 06:52] LABS: CALCIUM 9.7 mg/dL (8.5-10.1); CREATININE 1.2 mg/dL (0.6-1.0); GFR 51.4; MAGNESIUM 1.9 mg/dL (1.8-2.4); PHOSPHORUS 3.5 mg/dL (2.6-4.7); POTASSIUM 4.7 mmol/L (3.5-5.1)
[2020-12-23 07:00] VITALS: BP 111/59
[2020-12-23] MEDS: ONDANSETRON PF 4 MG/2 ML VIAL. IVP PRN ×2 (07:22→21:23)
[2020-12-23] MEDS: MORPHINE SULFATE 4 MG/ML INJ. IV PRN ×2 (07:22→21:23)
[2020-12-23] MEDS: ASPIRIN ENTERIC COATED 81 MG TABLET.DR. PO SCH (08:00)
[2020-12-23] MEDS: PSYLLIUM HUSK (SUGAR FREE) 1 PKT PACKET PO SCH (08:31)
[2020-12-23] MEDS: LOSARTAN POTASSIUM 50 MG TABLET. PO SCH (08:31)
--- NOTE | 2020-12-23 09:13 | PDOC ---
SURGICAL PROGRESS NOTE DATE: 12/23/20 TIME: 09:12 Subjective Patient having more abdominal pain nausea vomiting has not passed any flatus or stool Vital Signs Vital Signs Date Time Temp Pulse Resp B/P (MAP) Pulse Ox O2 Delivery O2 Flow Rate FiO2 12/23/20 07:36 Room Air 12/23/20 07:00 97.3 86 18 111/59 (76) 96 97.3 I&O Intake and Output 12/23/20 07:00 Output Total 300 ml Balance -300 ml Emesis 300 ml # Voids 2 PATIENT HAS A SCHROEDER: No General: Alert, Oriented X3, Cooperative, mild distress Abdomen: Soft, Other (Distended abdomen diffusely tender to palpation no peritoneal signs) Labs Laboratory Tests Test 12/22/20 03:27 12/23/20 06:10 Sodium Level 138 mmol/L (136-145) 136 mmol/L (136-145) Potassium Level 5.0 mmol/L (3.5-5.1) 4.7 mmol/L (3.5-5.1) Chloride Level 104 mmol/L (98-107) 102 mmol/L (98-107) Carbon Dioxide Level 27 mmol/L (21-32) 26 mmol/L (21-32) Anion Gap 7 (6-14) 8 (6-14) Blood Urea Nitrogen 58 mg/dL (7-20) 57 mg/dL (7-20) Creatinine 1.2 mg/dL (0.6-1.0) 1.2 mg/dL (0.6-1.0) Estimated GFR (Cockcroft-Gault) 51.4 51.4 Glucose Level 101 mg/dL (70-99) 105 mg/dL (70-99) Calcium Level 9.4 mg/dL (8.5-10.1) 9.7 mg/dL (8.5-10.1) Phosphorus Level 3.8 mg/dL (2.6-4.7) 3.5 mg/dL (2.6-4.7) Magnesium Level 1.6 mg/dL (1.8-2.4) 1.9 mg/dL (1.8-2.4) Triglycerides Level 69 mg/dL (0-150) Laboratory Tests Test 12/23/20 06:10 Sodium Level 136 mmol/L (136-145) Potassium Level 4.7 mmol/L (3.5-5.1) Chloride Level 102 mmol/L (98-107) Carbon Dioxide Level 26 mmol/L (21-32) Anion Gap 8 (6-14) Blood Urea Nitrogen 57 mg/dL (7-20) Creatinine 1.2 mg/dL (0.6-1.0) Estimated GFR (Cockcroft-Gault) 51.4 Glucose Level 105 mg/dL (70-99) Calcium Level 9.7 mg/dL (8.5-10.1) Phosphorus Level 3.5 mg/dL (2.6-4.7) Magnesium Level 1.9 mg/dL (1.8-2.4) Problem List Problems Medical Problems: (1) SBO (small bowel obstruction) Status: Acute Assessment/Plan Overall worsening symptoms replace NG tube to low intermittent suction possibly surgical intervention tomorrow Justicifation of Admission Dx: Justifications for Admission: Justification of Admission Dx: Yes LUNA CHOW MD Dec 23, 2020 09:13
[2020-12-23] MEDS: HEPARIN for SUB-Q USE 5,000 UNIT/ML VIAL. SQ SCH ×2 (10:18→20:06)
[2020-12-23 11:00] VITALS: BP 119/55
--- NOTE | 2020-12-23 11:30 | PDOC ---
[facility] PROGRESS NOTE Date of Service DOS: DATE: 12/23/20 TIME: 11:25 Chief Complaint Chief Complaint Small Bowel Obstruction Elevated Troponins Hypertensive Urgency Hyperglycemia History of Present Illness History of Present Illness Ms Caro is 85-year-old female with past medical history HTN, presents to the ED with complaints of abdominal pain, nausea, and vomiting. She reports epigastric abdominal pain, 10/10. She denies any associated fever, chest pain, or diarrhea. States her last bowel movement was yesterday and she last ate yesterday morning. She has received both of reflexive COVID-19 vaccines. Labs on admission showed platelets 132, BG 138, troponin 0.060, with repeat troponin 0.208, trended down to 0.200. CT abdomen/pelvis showed small bowel obstruction with possible transition point in the distal ileum. She had NG tube placed in the ED. Admitted patient for medical management. 12/11: Pulled out NGT overnight. She is up in the chair, not passing flatus, no BM. Pain 2/10. 12/12: Pain 10. Not passing flatus belching frequently. No further emesis at this time. No chest pain or shortness of breath. Advised we will start IV nutrition today. 12/13: Multiple bouts of emesis failed NG tube placement 3 times radiology to perform under fluoroscopy today. Tolerating PPN well. No CP or SOB. 12/14: No flatus or bowel movement. Tolerating NG tube well. Pain reasonably controlled. BUN elevated. With her lipid panel would favor holding off on lipid formulation and continue PPN, add PPI. 12/15: Did not tolerate clamping with sesame oil. Pain is little worse today. No flatus few bowel sounds. PICC placed and TPN. Afebrile. No flatus or bowel movement. PICC in place. Will transition from PPN to TPN today. Pain is stable. 12/17: Mrs. Caro was seen and evaluated this morning in her room. We discussed her current disposition with her nurse and reviewed her chart. She has transitioned to TPN and her pain remains stable. 12/18: Mrs. Caro was examined and seen this morning in her room. We discussed her current disposition with her nurse and reviewed her chart. She continues on TPN and her pain is stable. She mentioned this morning that she is able to produce some flatus. Her NG tube was not clamped this morning. At this time, we will await surgery input into Mrs. Caro's current disposition. 12/19: Mrs. Caro was seen and examined this morning in her room at bedside. We discussed her current disposition with her nurse and reviewed her chart. She was seen by surgery yesterday and her NG tube was clamped. The goal is to avoid surgery at this time. She continues to produce some flatus and continues receiving TPN. 12/20: Mrs. Caro was seen and evaluated this morning in her room. She appears much better and her NG tube has been removed. She is now receiving liquids and we will work towards improving her diet. We reviewed Mrs. Caro's chart and discussed her current disposition with her nurse. 12/21: Mrs. Caro was seen and examined this morning at bedside in her room. She was sitting up, comfortable, awake and alert. Mrs. Caro continues to improve and her NG tube remains removed. She is still receiving TPN and is currently on clear liquids and jello. We will continue to work with GI to advance her diet. We discussed Mrs. Caro's disposition with her nurse and reviewed her chart. 12/22: Mrs. Caro was examined and seen this morning in her room. She continues to improve her diet, as she is now eating about a spoonful or two of oatmeal. She states that her diet is normally very light, but when asked, she felt that she was not back to her usual baseline. We discussed with Mrs. Caro that we will continue to advance her diet as she slowly improves with this. We will continue to work with GI for consultation. We discussed Mrs. Caro's current disposition with her nurse and reviewed her chart. She continues TPN. 12/23: Mrs. Caro was seen and examined this morning in her room. Last night, her disposition began to worsen as she developed multiple bouts of nausea and vomiting. NG tube placement was re-attempted but failed. Dr. Klein was consulted and the patient will have possible surgery tomorrow morning. Mrs. Caro continues TPN. We discussed Mrs. Caro's current disposition with her nurse and reviewed her chart. Vitals/I&O Vitals/I&O: Vital Signs Date Time Temp Pulse Resp B/P (MAP) Pulse Ox O2 Delivery O2 Flow Rate FiO2 12/23/20 07:55 Room Air 12/23/20 07:00 97.3 86 18 111/59 (76) 96 97.3 I & O 12/22/20 12/22/20 12/23/20 15:00 23:00 07:00 Output Total 300 ml Balance -300 ml Physical Exam General: Alert, Oriented X3, Cooperative, mild distress Heart: Regular rate, No murmurs Lungs: Clear Extremities: No clubbing, No edema, Normal pulses Skin: No rashes Labs Labs: Laboratory Tests Test 12/23/20 06:10 Sodium Level 136 mmol/L (136-145) Potassium Level 4.7 mmol/L (3.5-5.1) Chloride Level 102 mmol/L (98-107) Carbon Dioxide Level 26 mmol/L (21-32) Anion Gap 8 (6-14) Blood Urea Nitrogen 57 mg/dL (7-20) Creatinine 1.2 mg/dL (0.6-1.0) Estimated GFR (Cockcroft-Gault) 51.4 Glucose Level 105 mg/dL (70-99) Calcium Level 9.7 mg/dL (8.5-10.1) Phosphorus Level 3.5 mg/dL (2.6-4.7) Magnesium Level 1.9 mg/dL (1.8-2.4) Review of Systems Review of Systems: No headache No fever Assessment and Plan Assessmemt and Plan Problems Medical Problems: (1) SBO (small bowel obstruction) Status: Acute Assessment: 1. SBO 2. Elevated troponins 3. Hypertensive urgency 4. Hyperglycemia Plan: 1. Possible OR in AM per Dr. Klein 2. Continue TPN 3. Contnue DVT Prophylaxis 4. Full Code 5. Continue to follow-up with GI. Comment Review of Relevant I have reviewed the following items mekhi (where applicable) has been applied. Medications: Current Medications Medications (Trade) Dose Ordered Sig/Amy Route PRN Reason Start Time Stop Time Status Last Admin Dose Admin Sodium Chloride 90 meq/Potassium Phosphate 13.6 mmol/Magnesium Sulfate 10 meq/ Calcium Gluconate 10 meq/ Multivitamins 5 ml/Zinc/Copper/ Manganese/ Selenium 1 ml/ Total Parenteral Nutrition/Amino Acids/Dextrose/ Fat Emulsion Intravenous 1,512 ml @ 63 mls/hr TPN CONT IV 12/22/20 22:00 12/23/20 21:59 12/22/20 22:00 Justifications for Admission Other Justification CASTLE,NIAL K III DO Dec 23, 2020 11:30
[2020-12-23 15:00] VITALS: BP 114/55
[2020-12-23 19:00] VITALS: BP 164/44
[2020-12-23] MEDS ORDERED: [UNRECOGNIZED DRUG - OTHER] IV SCH (22:00)
[2020-12-23] MEDS ORDERED: DEXTROSE 70% IV SCH (22:00)
[2020-12-23] MEDS ORDERED: AMINO ACID IV SCH (22:00)
[2020-12-23] MEDS ORDERED: TOTAL PARENTERAL NUTRITION IV SCH (22:00)
[2020-12-23 22:36] VITALS: BP 107/58
[2020-12-24] VITALS (12 sets, daily range): BP systolic 92–145; BP diastolic 44–69
[2020-12-24] MEDS ORDERED: PROCHLORPERAZINE 10 MG/2 ML VIAL. IVP PRN (07:15)
[2020-12-24] MEDS ORDERED: HYDROmorphone 2 MG/ML VIAL IVP PRN (07:15)
[2020-12-24] MEDS ORDERED: IV RINGERS,LACTATED 1000ML 1,000 ML IV SCH (07:15)
[2020-12-24] MEDS ORDERED: fentaNYL PF VIAL 100 MCG/2 ML VIAL IVP PRN (07:15)
[2020-12-24] MEDS ORDERED: MORPHINE SULFATE 2 MG/ML INJ. IVP PRN (07:15)
[2020-12-24] MEDS: ASPIRIN ENTERIC COATED 81 MG TABLET.DR. PO SCH (08:00)
[2020-12-24] MEDS ORDERED: cefOXitin SODIUM IV Push 2 GM VIAL. IVP SCH (09:00)
[2020-12-24] MEDS: HEPARIN for SUB-Q USE 5,000 UNIT/ML VIAL. SQ SCH ×2 (09:00→21:39)
[2020-12-24] MEDS: PSYLLIUM HUSK (SUGAR FREE) 1 PKT PACKET PO SCH (09:00)
[2020-12-24] MEDS: LOSARTAN POTASSIUM 50 MG TABLET. PO SCH (09:00)
[2020-12-24] MEDS ORDERED: LIDOCAINE 2% PF 5 ML VIAL. ONE (09:10)
[2020-12-24] MEDS ORDERED: DEXAMETHASONE SOD PHOS 4 MG/ML VIAL ONE ×2 (09:10)
[2020-12-24] MEDS ORDERED: PROPOFOL 10 MG/ML (20ML) VIAL. IV ONE ×2 (09:10)
[2020-12-24] MEDS ORDERED: LIDOCAINE 1% PF 5 ML VIAL. ONE (09:10)
[2020-12-24] MEDS ORDERED: ONDANSETRON PF 4 MG/2 ML VIAL. ONE (09:10)
[2020-12-24] MEDS ORDERED: ROCURONIUM 50 MG/5 ML VIAL. ONE ×3 (09:10→10:25)
[2020-12-24] MEDS ORDERED: SUCCINYLCHOLINE 200 MG/10 ML VIAL. ONE ×2 (09:10→09:11)
[2020-12-24] MEDS ORDERED: PHENYLEPHRINE in 0.9% NACL PF 1 MG/10 ML SYRINGE. IV ONE ×2 (09:10→09:44)
[2020-12-24] MEDS: TPN PER PHARMACY MC PRN ×3 (09:20→09:30)
--- NOTE | 2020-12-24 09:32 | NUR ---
Pharmacy TPN Dosing Note S: OMAR LYON is a 85 year old F Currently receiving Central Continuous TPN started 12/16/20 B:Pertinent PMH: SBO Height: 5 feet, 2 inches Weight: [id number] kg Current diet: full liquid diet LABS: Sodium: 136 Potassium: 4.7 Chloride: 102 Calcium: 9.7 Corrected Calcium: 10.26 Magnesium: 1.9 CO2: 26 SCr: 1.2 Glucose: 105 Albumin: 3.3 AST: 20 ALT: 50 TPN FORMULA: TPN TYPE: Central Continuous AMINO ACIDS: 60 gm DEXTROSE: 195 gm LIPIDS: 20 gm SODIUM CHLORIDE: 90 mEq POTASSIUM PHOSPHATE: 13.6 mmol MAGNESIUM: 10 mEq CALCIUM: 10 mEq MULTIPLE VITAMIN: 5 ml TRACE ELEMENTS: 1 ml ml(s) TPN PLAN: All lytes WNL. Continue same TPN. R: Continue TPN Will monitor electrolytes, glucose, and tolerance to TPN. Jacques Rain [facility], 12/24/20 [id number]
--- NOTE | 2020-12-24 09:42 | PDOC ---
SURGICAL PROGRESS NOTE DATE: 12/24/20 TIME: 09:40 Subjective Pre-Op Note 85 yo F with SBO. Pt has not improved despite conservative measures. TO OR for xlap, RENITA, possible bowel resection. R/R/B/A d/w pt. Risks, including, but not limited to: bleeding, infection, damage to surrounding structures, risk of anesthesia. She appears to understand, her questions are answered and she elects to proceed. She reports peace about it. Vital Signs Vital Signs Date Time Temp Pulse Resp B/P (MAP) Pulse Ox O2 Delivery O2 Flow Rate FiO2 12/24/20 07:00 97.7 73 18 124/56 (78) 97 Room Air 97.7 I&O Intake and Output 12/24/20 07:00 Output Total 300 ml Balance -300 ml Output Urine Total 300 ml # Voids 2 Labs Laboratory Tests Test 12/23/20 06:10 Sodium Level 136 mmol/L (136-145) Potassium Level 4.7 mmol/L (3.5-5.1) Chloride Level 102 mmol/L (98-107) Carbon Dioxide Level 26 mmol/L (21-32) Anion Gap 8 (6-14) Blood Urea Nitrogen 57 mg/dL (7-20) Creatinine 1.2 mg/dL (0.6-1.0) Estimated GFR (Cockcroft-Gault) 51.4 Glucose Level 105 mg/dL (70-99) Calcium Level 9.7 mg/dL (8.5-10.1) Phosphorus Level 3.5 mg/dL (2.6-4.7) Magnesium Level 1.9 mg/dL (1.8-2.4) Problem List Problems Medical Problems: (1) SBO (small bowel obstruction) Status: Acute Justicifation of Admission Dx: Justifications for Admission: Justification of Admission Dx: Yes BELINDA GUAJARDO MD Dec 24, 2020 09:42
--- NOTE | 2020-12-24 10:46 | NUR ---
SW following. Discussed with RN, pt having surgery today - exploratory lap with possible bowel resection. RN advised no SW needs at this time. SW will continue to follow.
[2020-12-24] MEDS ORDERED: 0.9 % SODIUM CHLORIDE 10 ML DISP.SYRIN. IV PRN (11:15)
[2020-12-24] MEDS: IV RINGERS,LACTATED 1000ML 1,000 ML IV SCH ×2 (11:15→18:15)
[2020-12-24] MEDS ORDERED: NALOXONE 0.4 MG/ML VIAL. IV PRN (11:15)
[2020-12-24] MEDS ORDERED: MORPHINE SULFATE 30 ML IV PRN (11:15)
[2020-12-24] MEDS: IV NORMAL SALINE 1000ML BAG 1,000 ML IV SCH (11:15)
[2020-12-24] MEDS ORDERED: ONDANSETRON PF 4 MG/2 ML VIAL. IVP PRN (11:15)
[2020-12-24] MEDS ORDERED: SEVOFLURANE > 120 MINUTES. IH ONE (11:18)
[2020-12-24] MEDS ORDERED: fentaNYL PF VIAL 100 MCG/2 ML VIAL ONE ×2 (11:18→11:32)
--- NOTE | 2020-12-24 11:25 | PDOC4 ---
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 Internal hernia created by appendix with adherence to small bowel mesentery Complications: none Operative Note: After obtaining informed consent, patient was taken to OR, induced under GETA and prepped in the usual fashion. Midline incision was made with cautery and fascia divided in midline. Abdominal cavity was explored and noted as above. NGT in stomach and several liters evacuated. Small bowel diffuse distended down to internal hernia created by appendix adherent to small bowel mesentery. Base of appendix resected with MELI 75. Staple line oversewn with 3 0 vicryl. Mesoappendix resected with ligasure. Tip of appendix resected out of small bowel mesentery. Defect in mesentery repaired with 3 0 vicryl. Appendix sent to pathology. Copious irrigation. No evidence of bleeding or other pathology. Fascia repaired with 0 looped PDS. Skin repaired with 3 0 vicryl and 4 0 monocryl. Dressing placed. Patient tolerated procedure well and sent to PACU in stable condition. All coun ts correct. Wound class is 3. BELINDA GUAJARDO MD Dec 24, 2020 11:25
--- NOTE | 2020-12-24 11:38 | RAD ---
EXAM: Abdomen, single view. HISTORY: Exploratory laparotomy. COMPARISON: 12/22/2020. FINDINGS: A frontal supine view of the abdomen is obtained. There is a nasogastric tube with the tip in the distal gastric antrum. There are persistent distended air-filled small bowel throughout the ab domen. There is no evidence of retained foreign body. There is no transition point to suggest obstruc tion. Evaluation for pneumoperitoneum is limited in the absence of an upright a lateral decubitus vie w. IMPRESSION: Persistent distended air-filled small bowel throughout the abdomen. This may be due to po stoperative ileus. No transition point is seen to suggest obstruction. Electronically signed by: Lexus Pool MD (12/24/2020 11:35 AM) [id number]
[2020-12-24] MEDS: fentaNYL PF VIAL 100 MCG/2 ML VIAL IVP PRN ×2 (11:40→11:50)
[2020-12-24] MEDS ORDERED: ENOXAPARIN 40 MG/0.4 ML SYRINGE. SQ SCH (12:00)
[2020-12-24] MEDS: PANTOPRAZOLE IV PUSH 40 MG VIAL. IVP SCH (12:56)
--- NOTE | 2020-12-24 13:13 | PDOC ---
[facility] [facility] PROGRESS NOTE Date of Service DOS: DATE: 12/24/20 TIME: 13:11 Chief Complaint Chief Complaint Small Bowel Obstruction Elevated Troponins Hypertensive Urgency Hyperglycemia History of Present Illness History of Present Illness Ms Caro is 85-year-old female with past medical history HTN, presents to the ED with complaints of abdominal pain, nausea, and vomiting. She reports epigastric abdominal pain, 10/10. She denies any associated fever, chest pain, or diarrhea. States her last bowel movement was yesterday and she last ate yesterday morning. She has received both of reflexive COVID-19 vaccines. Labs on admission showed platelets 132, BG 138, troponin 0.060, with repeat troponin 0.208, trended down to 0.200. CT abdomen/pelvis showed small bowel obstruction with possible transition point in the distal ileum. She had NG tube placed in the ED. Admitted patient for medical management. 12/11: Pulled out NGT overnight. She is up in the chair, not passing flatus, no BM. Pain 2/10. 12/12: Pain 10. Not passing flatus belching frequently. No further emesis at this time. No chest pain or shortness of breath. Advised we will start IV nutrition today. 12/13: Multiple bouts of emesis failed NG tube placement 3 times radiology to perform under fluoroscopy today. Tolerating PPN well. No CP or SOB. 12/14: No flatus or bowel movement. Tolerating NG tube well. Pain reasonably controlled. BUN elevated. With her lipid panel would favor holding off on lipid formulation and continue PPN, add PPI. 12/15: Did not tolerate clamping with sesame oil. Pain is little worse today. No flatus few bowel sounds. PICC placed and TPN. Afebrile. No flatus or bowel movement. PICC in place. Will transition from PPN to TPN today. Pain is stable. 12/17: Mrs. Caro was seen and evaluated this morning in her room. We discussed her current disposition with her nurse and reviewed her chart. She has transitioned to TPN and her pain remains stable. 12/18: Mrs. Caro was examined and seen this morning in her room. We discussed her current disposition with her nurse and reviewed her chart. She continues on TPN and her pain is stable. She mentioned this morning that she is able to produce some flatus. Her NG tube was not clamped this morning. At this time, we will await surgery input into Mrs. Caro's current disposition. 12/19: Mrs. Caro was seen and examined this morning in her room at bedside. We discussed her current disposition with her nurse and reviewed her chart. She was seen by surgery yesterday and her NG tube was clamped. The goal is to avoid surgery at this time. She continues to produce some flatus and continues receiving TPN. 12/20: Mrs. Caro was seen and evaluated this morning in her room. She appears much better and her NG tube has been removed. She is now receiving liquids and we will work towards improving her diet. We reviewed Mrs. Caro's chart and discussed her current disposition with her nurse. 12/21: Mrs. Caro was seen and examined this morning at bedside in her room. She was sitting up, comfortable, awake and alert. Mrs. Caro continues to improve and her NG tube remains removed. She is still receiving TPN and is currently on clear liquids and jello. We will continue to work with GI to advance her diet. We discussed Mrs. Caro's disposition with her nurse and reviewed her chart. 12/22: Mrs. Caro was examined and seen this morning in her room. She continues to improve her diet, as she is now eating about a spoonful or two of oatmeal. She states that her diet is normally very light, but when asked, she felt that she was not back to her usual baseline. We discussed with Mrs. Caro that we will continue to advance her diet as she slowly improves with this. We will continue to work with GI for consultation. We discussed Mrs. Caro's current disposition with her nurse and reviewed her chart. She continues TPN. 12/23: Mrs. Caro was seen and examined this morning in her room. Last night, her disposition began to worsen as she developed multiple bouts of nausea and vomiting. NG tube placement was re-attempted but failed. Dr. Klein was consulted and the patient will have possible surgery tomorrow morning. Mrs. Caro continues TPN. We discussed Mrs. Caro's current disposition with her nurse and reviewed her chart. 12/24: Patient seen and evaluated. She was taken to the OR today and had e xploratory laparotomy with lysis of adhesions and appendectomy. Chest x-ray was obtained following surgery that showed persistent distended air-filled small bowel throughout the abdomen, possibly due to postoperative ileus; no transition point is seen to suggest obstruction. Vitals/I&O Vitals/I&O: Vital Signs Date Time Temp Pulse Resp B/P (MAP) Pulse Ox O2 Delivery O2 Flow Rate FiO2 12/24/20 12:55 79 16 145/44 (77) 98 Nasal Cannula 2.0 12/24/20 12:40 97.7 97.7 I & O 12/23/20 12/23/20 12/24/20 15:00 23:00 07:00 Intake Total 1600 ml Output Total 300 ml Balance 1300 ml Physical Exam General: Alert, Oriented X3, Cooperative, mild distress Heart: Regular rate, No murmurs Lungs: Clear Abdomen: Other (Distended) Extremities: No clubbing, No edema, Normal pulses Skin: No rashes Assessment and Plan Assessmemt and Plan Problems Medical Problems: (1) SBO (small bowel obstruction) Status: Acute Comment Review of Relevant I have reviewed the following items mekhi (where applicable) has been applied. Medications: Current Medications Medications (Trade) Dose Ordered Sig/Amy Route PRN Reason Start Time Stop Time Status Last Admin Dose Admin Sodium Chloride 90 meq/Potassium Phosphate 13.6 mmol/Magnesium Sulfate 10 meq/ Calcium Gluconate 10 meq/ Multivitamins 5 ml/Zinc/Copper/ Manganese/ Selenium 1 ml/ Total Parenteral Nutrition/Amino Acids/Dextrose/ Fat Emulsion Intravenous 1,512 ml @ 63 mls/hr TPN CONT IV 12/23/20 22:00 12/24/20 21:59 12/23/20 21:24 Fentanyl Citrate (Fentanyl 2ml Vial) 50 mcg PRN Q5MIN PRN IVP MODERATE PAIN 4-6 12/24/20 07:15 12/25/20 07:14 12/24/20 11:50 Cefoxitin Sodium (Mefoxin) 2 gm 1X PERIOP IVP 12/24/20 09:00 12/24/20 11:50 Justifications for Admission Other Justification JERZY ALLEN MD Dec 24, 2020 13:13
[2020-12-24] MEDS: MORPHINE SULFATE 4 MG/ML INJ. IV PRN (14:25)
[2020-12-24] MEDS ORDERED: [UNRECOGNIZED DRUG - OTHER] IV SCH (22:00)
[2020-12-24] MEDS ORDERED: TOTAL PARENTERAL NUTRITION IV SCH (22:00)
[2020-12-24] MEDS ORDERED: AMINO ACID IV SCH (22:00)
[2020-12-24] MEDS ORDERED: DEXTROSE 70% IV SCH (22:00)
[2020-12-25 03:00] VITALS: BP 127/49
[2020-12-25] MEDS: MORPHINE SULFATE 4 MG/ML INJ. IV PRN (03:54)
[2020-12-25] MEDS: IV RINGERS,LACTATED 1000ML 1,000 ML IV SCH (03:55)
[2020-12-25 07:00] VITALS: BP 100/54
--- NOTE | 2020-12-25 07:17 | PDOC ---
[facility] [facility] PROGRESS NOTE Date of Service DOS: DATE: 12/25/20 TIME: 07:12 Chief Complaint Chief Complaint A/P: Small Bowel Obstruction - s/p ex-lap and appy on 12/24/2020 Elevated troponins - likely demand ischemia. echo with preserved EF Hypertensive urgency - improved Hyperglycemia HLD - LDL extremely high, would be good candidate for PCSK9 inhibitor injections outpatient H/o CVA FEN - NPO PPX - lovenox FULL CODE DIspo - inpatient History of Present Illness History of Present Illness Ms Caro is 85-year-old female with past medical history HTN, presents to the ED with complaints of abdominal pain, nausea, and vomiting. She reports epigastric abdominal pain, 01/20. She denies any associated fever, chest pain, or diarrhea. States her last bowel movement was yesterday and she last ate yesterday morning. She has received both of reflexive COVID-19 vaccines. Labs on admission showed platelets 132, BG 138, troponin 0.060, with repeat troponin 0.208, trended down to 0.200. CT abdomen/pelvis showed small bowel obstruction with possible transition point in the distal ileum. She had NG tube placed in the ED. Admitted patient for medical management. 12/11: Pulled out NGT overnight. She is up in the chair, not passing flatus, no BM. Pain 2/10. 12/12: Pain 10. Not passing flatus belching frequently. No further emesis at this time. No chest pain or shortness of breath. Advised we will start IV nutrition today. 12/13: Multiple bouts of emesis failed NG tube placement 3 times radiology to perform under fluoroscopy today. Tolerating PPN well. No CP or SOB. 12/14: No flatus or bowel movement. Tolerating NG tube well. Pain reasonably controlled. BUN elevated. With her lipid panel would favor holding off on lipid formulation and continue PPN, add PPI. 12/15: Did not tolerate clamping with sesame oil. Pain is little worse today. No flatus few bowel sounds. PICC placed and TPN. 12/16: Afebrile. No flatus or bowel movement. PICC in place. Will transition from PPN to TPN today. Pain is stable. 12/17: We discussed her current disposition with her nurse and reviewed her chart. She has transitioned to TPN and her pain remains stable. 12/18: She continues on TPN and her pain is stable. She mentioned this morning that she is able to produce some flatus. Her NG tube was not clamped this morning. At this time, we will await surgery input into Mrs. Caro's current disposition. 12/19: We discussed her current disposition with her nurse and reviewed her chart. She was seen by surgery yesterday and her NG tube was clamped. The goal is to avoid surgery at this time. She continues to produce some flatus and continues receiving TPN. 12/20: She appears much better and her NG tube has been removed. She is now receiving liquids and we will work towards improving her diet. We reviewed Mrs. Caro's chart and discussed her current disposition with her nurse. 12/21: She was sitting up, comfortable, awake and alert. Mrs. Caro continues to improve and her NG tube remains removed. She is still receiving TPN and is currently on clear liquids and jello. We will continue to work with GI to advance her diet. 12/22: She continues to improve her diet, as she is now eating about a spoonful or two of oatmeal. She states that her diet is normally very light, but when asked, she felt that she was not back to her usual baseline. She continues TPN. 12/23: Last night, developed multiple bouts of nausea and vomiting. NG tube placement was re-attempted but failed. Dr. Klein was consulted and the patient will have possible surgery tomorrow morning. 12/24: Patient seen and evaluated. She was taken to the OR today and had exploratory laparotomy with lysis of adhesions and appendectomy. Chest x-ray was obtained following surgery that showed persistent distended air-filled small bowel throughout the abdomen Afebrile overnight. NG tube with 400 cc output. She feels the urge to have a bowel movement but is not passing flatus yet. No chest pain or shortness of breath. She does note multiple strange dreams overnight and attempted to call her sister at 3 AM. Vitals/I&O Vitals/I&O: Vital Signs Date Time Temp Pulse Resp B/P (MAP) Pulse Ox O2 Delivery O2 Flow Rate FiO2 12/25/20 04:24 20 Room Air 12/25/20 03:00 98.8 95 127/49 (75) 98 98.8 12/24/20 16:30 1.0 I & O 12/24/20 12/24/20 12/25/20 15:00 23:00 07:00 Intake Total 0 ml Output Total 50 ml 500 ml 475 ml Balance -50 ml -500 ml -475 ml Physical Exam General: Alert, Oriented X3, Cooperative, mild distress Heart: Regular rate, No murmurs Lungs: Clear Abdomen: Other (Distended) Extremities: No clubbing, No edema, Normal pulses Skin: No rashes Assessment and Plan Assessmemt and Plan Problems Medical Problems: (1) SBO (small bowel obstruction) Status: Acute Comment Review of Relevant I have reviewed the following items mekhi (where applicable) has been applied. Medications: Current Medications Medications (Trade) Dose Ordered Sig/Amy Route PRN Reason Start Time Stop Time Status Last Admin Dose Admin Fentanyl Citrate (Fentanyl 2ml Vial) 50 mcg PRN Q5MIN PRN IVP MODERATE PAIN 4-6 12/24/20 07:15 12/24/20 16:08 DC 12/24/20 11:50 Cefoxitin Sodium (Mefoxin) 2 gm 1X PERIOP IVP 12/24/20 09:00 12/24/20 11:50 Sodium Chloride 90 meq/Potassium Phosphate 13.6 mmol/Magnesium Sulfate 10 meq/ Calcium Gluconate 10 meq/ Multivitamins 5 ml/Zinc/Copper/ Manganese/ Selenium 1 ml/ Total Parenteral Nutrition/Amino Acids/Dextrose/ Fat Emulsion Intravenous 1,512 ml @ 63 mls/hr TPN CONT IV 12/24/20 22:00 12/25/20 21:59 12/24/20 22:16 Ringer's Solution 1,000 ml @ 100 mls/hr Q10H IV 12/24/20 11:15 12/25/20 03:55 Justifications for Admission Other Justification JULISSA LERMA MD Dec 25, 2020 07:16
[2020-12-25] MEDS: ASPIRIN ENTERIC COATED 81 MG TABLET.DR. PO SCH (08:00)
--- NOTE | 2020-12-25 08:32 | PDOC ---
SURGICAL PROGRESS NOTE DATE: 12/25/20 TIME: 08:31 Subjective sore throat abdomen sore no flatus Vital Signs Vital Signs Date Time Temp Pulse Resp B/P (MAP) Pulse Ox O2 Delivery O2 Flow Rate FiO2 12/25/20 07:00 98.6 88 18 100/54 (69) 95 Nasal Cannula 1.0 98.6 I&O Intake and Output 12/25/20 07:00 Intake Total 0 ml Output Total 1025 ml Balance -1025 ml Intake Oral 0 ml Output Urine Total 975 ml Estimated Blood Loss 50 ml General: Cooperative, No acute distress HEENT: Other (ng in place) Abdomen: Soft, Other (dressing dry) Problem List Problems Medical Problems: (1) SBO (small bowel obstruction) Status: Acute Assessment/Plan continue ng, await bowel function Justicifation of Admission Dx: Justifications for Admission: Justification of Admission Dx: Yes ARCHIE NULL RECOVERY SPECIALIST Dec 25, 2020 08:32
[2020-12-25] MEDS: LOSARTAN POTASSIUM 50 MG TABLET. PO SCH (08:33)
[2020-12-25] MEDS: PSYLLIUM HUSK (SUGAR FREE) 1 PKT PACKET PO SCH (08:33)
[2020-12-25] MEDS: TPN PER PHARMACY MC PRN ×4 (09:57→11:29)
--- NOTE | 2020-12-25 10:04 | NUR ---
Pharmacy TPN Dosing Note S: OMAR LYON is a 85 year old F Currently receiving Central Continuous TPN started 12/16/20 B:Pertinent PMH: SBO Height: 5 feet, 2 inches Weight: 72.040879 kg Current diet: full liquid diet LABS: Sodium: 136 Potassium: 4.7 Chloride: 102 Calcium: 9.7 Corrected Calcium: 10.26 Magnesium: 1.9 CO2: 26 SCr: 1.2 Glucose: 105 Albumin: 3.3 AST: 20 ALT: 50 TPN FORMULA: TPN TYPE: Central Continuous AMINO ACIDS: 60 gm DEXTROSE: 195 gm LIPIDS: 20 gm SODIUM CHLORIDE: 90 mEq POTASSIUM PHOSPHATE: 13.6 mmol MAGNESIUM: 10 mEq CALCIUM: 10 mEq MULTIPLE VITAMIN: 5 ml TRACE ELEMENTS: 1 ml ml(s) TPN PLAN: No lytes today. Continue same TPN. R: Continue TPN Will monitor electrolytes, glucose, and tolerance to TPN. Jacques Rain RPH, 12/25/20 1005 Addendum: 12/25/20 at 1131 by Jacques Rain RPH PHA Electrolytes were late, but now posted. All WNL. Continue TPN as is.
[2020-12-25] MEDS: PANTOPRAZOLE IV PUSH 40 MG VIAL. IVP SCH (10:35)
[2020-12-25] MEDS: PHENOL ORAL SPRAY 177ML BOTTLE. PO PRN (10:35)
[2020-12-25] MEDS: HEPARIN for SUB-Q USE 5,000 UNIT/ML VIAL. SQ SCH ×2 (10:36→21:25)
[2020-12-25 10:53] VITALS: BP 113/43
[2020-12-25 10:54] LABS: BASO # 0.1 x10^3/uL (0.0-0.2); BASO % 1 % (0-3); EOS % 0 % (0-3); HEMATOCRIT 31.7 % (36.0-47.0); HEMOGLOBIN 10.4 g/dL (12.0-15.5); LYMPH # 0.6 x10^3/uL (1.0-4.8); LYMPH % 4 % (24-48); MEAN CORPUSCULAR HEMOGLOBIN 30 pg (25-35); MEAN CORPUSCULAR HGB CONC 33 g/dL (31-37); MEAN CORPUSCULAR VOLUME 92 fL (79-100); MONO # 0.6 x10^3/uL (0.0-1.1); MONO % 3 % (0-9); NEUT # 15.2 x10^3/uL (1.8-7.7); NEUT % 92 % (31-73); PLATELET COUNT 178 x10^3/uL (140-400); RED BLOOD COUNT 3.45 x10^6/uL (3.50-5.40); RED CELL DISTRIBUTION WIDTH 13.7 % (11.5-14.5); WHITE BLOOD COUNT 16.5 x10^3/uL (4.0-11.0)
[2020-12-25] MEDS: IV NORMAL SALINE 1000ML BAG 1,000 ML IV SCH (11:15)
[2020-12-25 11:20] LABS: ALBUMIN 2.4 g/dL (3.4-5.0); ALBUMIN/GLOBULIN RATIO 0.6 (1.0-1.7); CALCIUM 8.9 mg/dL (8.5-10.1); GFR 63.5; POTASSIUM 4.5 mmol/L (3.5-5.1); TOTAL BILIRUBIN 0.3 mg/dL (0.2-1.0); TOTAL PROTEIN 6.2 g/dL (6.4-8.2)
[2020-12-25 11:31] LABS: % BANDS 16 % (0-9); % BASOS 1 % (0-3); % LYMPHS 4 % (24-48); % MONOS 4 % (0-10); % SEGS 75 % (35-66)
[2020-12-25 11:32] LABS: PLT ESTIMATE ADEQUATE (ADEQUATE)
[2020-12-25 15:00] VITALS: BP 118/45
--- NOTE | 2020-12-25 15:23 | PATHOLOGY ---
[facility] Accession Number: [id number] . 01 Material submitted: . appendix - APPENDIX . 01 Clinical history: . EXPLORATORY LAP, LYSIS OF ADHESIONS . 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 (JPM:uziel; 12/25/2020) S 12/25/2020 1406 Local . 02 Comment: There is no evidence of malignancy. (JPM:uziel; 12/25/2020) . 02 Electronically signed: . Balaji Tracy MD, Pathologist NPI- [id number] . 01 Gross description: . Fixative: Formalin Labeled: Appendix Appendix length: 7.5 cm Appendix diameter: Up to 1.5 cm Mesoappendix: 0.7 cm Proximal margin: Stapled Serosa: Light mohamud-gillis Cut surface: Sectioning reveals an intact cystic structure at distal tip measuring 1.0 cm and patent to dilated lumen Luminal diameter: Up to 0.5 cm Perforation: None identified Lesions/abnormalities: Cystic structure near distal tip A1 Proximal margin (inked black) and distal tip, bisected with cystic structure A2 Mid appendix([facility]; 12/24/2020) [facility] 12/24/2020 1832 Local . 02 Pathologist provided ICD-10: K35.80 . 02 CPT . [id number] Specimen Comment: A courtesy copy of this report has been sent to [phone], [phone] Specimen Comment: [id number] Specimen Comment: Report sent to / DR NAPOLES Performed at: [address], [place], [place] [id number] MD Sandeep Vlia MD Phone: [phone] Performed at: 02 [facility] [address] [place], [place] [id number] MD Balaji Tracy MD Phone: [phone]
[2020-12-25 19:00] VITALS: BP 126/60
[2020-12-25] MEDS ORDERED: DEXTROSE 70% IV SCH (22:00)
[2020-12-25] MEDS ORDERED: [UNRECOGNIZED DRUG - OTHER] IV SCH (22:00)
[2020-12-25] MEDS ORDERED: TOTAL PARENTERAL NUTRITION IV SCH (22:00)
[2020-12-25] MEDS ORDERED: AMINO ACID IV SCH (22:00)
[2020-12-25 22:41] VITALS: BP 118/53
[2020-12-26 03:00] VITALS: BP 110/50
[2020-12-26 07:00] VITALS: BP 102/43
[2020-12-26] MEDS: ASPIRIN ENTERIC COATED 81 MG TABLET.DR. PO SCH (08:00)
[2020-12-26] MEDS: LOSARTAN POTASSIUM 50 MG TABLET. PO SCH (09:00)
[2020-12-26] MEDS: PSYLLIUM HUSK (SUGAR FREE) 1 PKT PACKET PO SCH (09:00)
[2020-12-26] MEDS: PANTOPRAZOLE IV PUSH 40 MG VIAL. IVP SCH (09:52)
--- NOTE | 2020-12-26 09:56 | NUR ---
SW following. Discussed with RN, pt has NG, on TPN. Await return of bowel function after surgery. SW will continue to follow.
[2020-12-26] MEDS: HEPARIN for SUB-Q USE 5,000 UNIT/ML VIAL. SQ SCH ×2 (10:00→22:06)
[2020-12-26 11:00] VITALS: BP 115/37
[2020-12-26] MEDS: IV NORMAL SALINE 1000ML BAG 1,000 ML IV SCH (11:15)
--- NOTE | 2020-12-26 11:30 | PDOC ---
[facility] PROGRESS NOTE Date of Service DOS: DATE: 12/26/20 TIME: 11:29 Chief Complaint Chief Complaint A/P: Small Bowel Obstruction - s/p ex-lap and appy on 12/24/2020 Elevated troponins - likely demand ischemia. echo with preserved EF Hypertensive urgency - improved Hyperglycemia HLD - LDL extremely high, would be good candidate for PCSK9 inhibitor injections outpatient H/o CVA FEN - NPO PPX - lovenox FULL CODE DIspo - inpatient History of Present Illness History of Present Illness Ms Caro is 85-year-old female with past medical history HTN, presents to the ED with complaints of abdominal pain, nausea, and vomiting. She reports epigastric abdominal pain, 01/20. She denies any associated fever, chest pain, or diarrhea. States her last bowel movement was yesterday and she last ate yesterday morning. She has received both of reflexive COVID-19 vaccines. Labs on admission showed platelets 132, BG 138, troponin 0.060, with repeat troponin 0.208, trended down to 0.200. CT abdomen/pelvis showed small bowel obstruction with possible transition point in the distal ileum. She had NG tube placed in the ED. Admitted patient for medical management. 12/11: Pulled out NGT overnight. She is up in the chair, not passing flatus, no BM. Pain 2/10. 12/12: Pain 10. Not passing flatus belching frequently. No further emesis at this time. No chest pain or shortness of breath. Advised we will start IV nutrition today. 12/13: Multiple bouts of emesis failed NG tube placement 3 times radiology to perform under fluoroscopy today. Tolerating PPN well. No CP or SOB. 12/14: No flatus or bowel movement. Tolerating NG tube well. Pain reasonably controlled. BUN elevated. With her lipid panel would favor holding off on lipid formulation and continue PPN, add PPI. 12/15: Did not tolerate clamping with sesame oil. Pain is little worse today. No flatus few bowel sounds. PICC placed and TPN. 12/16: Afebrile. No flatus or bowel movement. PICC in place. Will transition from PPN to TPN today. Pain is stable. 12/17: We discussed her current disposition with her nurse and reviewed her chart. She has transitioned to TPN and her pain remains stable. 12/18: She continues on TPN and her pain is stable. She mentioned this morning that she is able to produce some flatus. Her NG tube was not clamped this morning. At this time, we will await surgery input into Mrs. Caro's current disposition. 12/19: We discussed her current disposition with her nurse and reviewed her chart. She was seen by surgery yesterday and her NG tube was clamped. The goal is to avoid surgery at this time. She continues to produce some flatus and continues receiving TPN. 12/20: She appears much better and her NG tube has been removed. She is now receiving liquids and we will work towards improving her diet. We reviewed Mrs. Caro's chart and discussed her current disposition with her nurse. 12/21: She was sitting up, comfortable, awake and alert. Mrs. Caro continues to improve and her NG tube remains removed. She is still receiving TPN and is currently on clear liquids and jello. We will continue to work with GI to advance her diet. 12/22: She continues to improve her diet, as she is now eating about a spoonful or two of oatmeal. She states that her diet is normally very light, but when asked, she felt that she was not back to her usual baseline. She continues TPN. 12/23: Last night, developed multiple bouts of nausea and vomiting. NG tube placement was re-attempted but failed. Dr. Klein was consulted and the patient will have possible surgery tomorrow morning. 12/24: Patient seen and evaluated. She was taken to the OR today and had exploratory laparotomy with lysis of adhesions and appendectomy. Chest x-ray was obtained following surgery that showed persistent distended air-filled small bowel throughout the abdomen 12/25: Afebrile overnight. NG tube with 400 cc output. She feels the urge to have a bowel movement but is not passing flatus yet. No chest pain or shortness of breath. She does note multiple strange dreams overnight and attempted to call her sister at 3 AM. 12/26: No acute events overnight. States she stooled yesterday and this morning. Denies vomiting. NG tube with 100 cc output this morning. Vitals/I&O Vitals/I&O: Vital Signs Date Time Temp Pulse Resp B/P (MAP) Pulse Ox O2 Delivery O2 Flow Rate FiO2 12/26/20 07:00 98.9 88 18 102/43 (62) 95 Nasal Cannula 1.0 98.9 I & O 12/25/20 12/25/20 12/26/20 15:00 23:00 07:00 Intake Total 0 ml 0 ml 0 ml Output Total 100 ml 250 ml 1100 ml Balance -100 ml -250 ml -1100 ml Physical Exam General: Cooperative, No acute distress Heart: Regular rate, No murmurs Lungs: Clear Abdomen: Soft, Other (dressing dry) Extremities: No clubbing, No edema, Normal pulses Skin: No rashes Assessment and Plan Assessmemt and Plan Problems Medical Problems: (1) SBO (small bowel obstruction) Status: Acute Comment Review of Relevant I have reviewed the following items mekhi (where applicable) has been applied. Medications: Current Medications Medications (Trade) Dose Ordered Sig/Amy Route PRN Reason Start Time Stop Time Status Last Admin Dose Admin Sodium Chloride 90 meq/Potassium Phosphate 13.6 mmol/Magnesium Sulfate 10 meq/ Calcium Gluconate 10 meq/ Multivitamins 5 ml/Zinc/Copper/ Manganese/ Selenium 1 ml/ Total Parenteral Nutrition/Amino Acids/Dextrose/ Fat Emulsion Intravenous 1,512 ml @ 63 mls/hr TPN CONT IV 12/25/20 22:00 12/26/20 21:59 12/25/20 21:16 Justifications for Admission Other Justification JERZY ALLEN MD Dec 26, 2020 11:30
[2020-12-26] MEDS: TPN PER PHARMACY MC PRN (13:09)
--- NOTE | 2020-12-26 13:14 | NUR ---
Pharmacy TPN Dosing Note S: OMAR LYON is a 85 year old F Currently receiving Central Continuous TPN started 12/16/20 B:Pertinent PMH: SBO Height: 5 feet, 2 inches Weight: 72.963705 kg Current diet: full liquid diet LABS: Sodium: 137 Potassium: 4.5 Chloride: 105 Calcium: 8.9 Corrected Calcium: 10.18 Magnesium: 1.9 CO2: 26 SCr: 1.0 Glucose: 145 Albumin: 2.4 AST: 42 ALT: 193 TPN FORMULA: TPN TYPE: Central Continuous AMINO ACIDS: 60 gm DEXTROSE: 195 gm LIPIDS: 20 gm SODIUM CHLORIDE: 90 mEq SODIUM ACETATE: - mEq SODIUM PHOSPHATE: - mmol POTASSIUM CHLORIDE: 0 mEq POTASSIUM ACETATE: - mEq POTASSIUM PHOSPHATE: 13.6 mmol MAGNESIUM: 10 mEq CALCIUM: 10 mEq INSULIN: - units MULTIPLE VITAMIN: 5 ml TRACE ELEMENTS: 1 ml ml(s) TPN PLAN: Lytes WNL. Continue same TPN. R: Continue TPN at 63ml/hr Will monitor electrolytes, glucose, and tolerance to TPN. RAMAKRISHNA [facility]OWN [facility], 12/26/20 1475
--- NOTE | 2020-12-26 13:40 | NUR ---
Herrera discontinued today POD 2 as ordered by the doctor.
[2020-12-26 15:00] VITALS: BP 117/45
--- NOTE | 2020-12-26 16:38 | PDOC ---
SURGICAL PROGRESS NOTE DATE: 12/26/20 TIME: 16:38 Subjective Patient states she is feeling better she states she has had a bowel movement Vital Signs Vital Signs Date Time Temp Pulse Resp B/P (MAP) Pulse Ox O2 Delivery O2 Flow Rate FiO2 12/26/20 15:00 99.0 91 18 117/45 (69) 98 Nasal Cannula 1.0 99.0 I&O Intake and Output 12/26/20 07:00 Intake Total 0 ml Output Total 1450 ml Balance -1450 ml Intake Oral 0 ml Output Urine Total 1100 ml Gastric Drainage Total 350 ml # Bowel Movements 1 PATIENT HAS A SCHROEDER: No General: Alert, Oriented X3, Cooperative, mild distress Abdomen: Normal bowel sounds, Soft, Other (Mild incisional tenderness wounds clean dry and intact) Labs Laboratory Tests Test 12/25/20 10:30 White Blood Count 16.5 x10^3/uL (4.0-11.0) Red Blood Count 3.45 x10^6/uL (3.50-5.40) Hemoglobin 10.4 g/dL (12.0-15.5) Hematocrit 31.7 % (36.0-47.0) Mean Corpuscular Volume 92 fL (79-100) Mean Corpuscular Hemoglobin 30 pg (25-35) Mean Corpuscular Hemoglobin Concent 33 g/dL (31-37) Red Cell Distribution Width 13.7 % (11.5-14.5) Platelet Count 178 x10^3/uL (140-400) Neutrophils (%) (Auto) 92 % (31-73) Lymphocytes (%) (Auto) 4 % (24-48) Monocytes (%) (Auto) 3 % (0-9) Eosinophils (%) (Auto) 0 % (0-3) Basophils (%) (Auto) 1 % (0-3) Neutrophils # (Auto) 15.2 x10^3/uL (1.8-7.7) Lymphocytes # (Auto) 0.6 x10^3/uL (1.0-4.8) Monocytes # (Auto) 0.6 x10^3/uL (0.0-1.1) Eosinophils # (Auto) 0.0 x10^3/uL (0.0-0.7) Basophils # (Auto) 0.1 x10^3/uL (0.0-0.2) Segmented Neutrophils % 75 % (35-66) Band Neutrophils % 16 % (0-9) Lymphocytes % 4 % (24-48) Monocytes % 4 % (0-10) Basophils % 1 % (0-3) Platelet Estimate Adequate (ADEQUATE) Sodium Level 137 mmol/L (136-145) Potassium Level 4.5 mmol/L (3.5-5.1) Chloride Level 105 mmol/L (98-107) Carbon Dioxide Level 26 mmol/L (21-32) Anion Gap 6 (6-14) Blood Urea Nitrogen 39 mg/dL (7-20) Creatinine 1.0 mg/dL (0.6-1.0) Estimated GFR (Cockcroft-Gault) 63.5 BUN/Creatinine Ratio 39 (6-20) Glucose Level 145 mg/dL (70-99) Calcium Level 8.9 mg/dL (8.5-10.1) Total Bilirubin 0.3 mg/dL (0.2-1.0) Aspartate Amino Transf (AST/SGOT) 42 U/L (15-37) Alanine Aminotransferase (ALT/SGPT) 193 U/L (14-59) Alkaline Phosphatase 136 U/L (46-116) Total Protein 6.2 g/dL (6.4-8.2) Albumin 2.4 g/dL (3.4-5.0) Albumin/Globulin Ratio 0.6 (1.0-1.7) Problem List Problems Medical Problems: (1) SBO (small bowel obstruction) Status: Acute Assessment/Plan Status post exploratory laparotomy for lysis of adhesions small bowel obstruction. We will clamp NG tube Justicifation of Admission Dx: Justifications for Admission: Justification of Admission Dx: Yes LUNA CHOW MD Dec 26, 2020 16:38
[2020-12-26 19:00] VITALS: BP 143/53
[2020-12-26] MEDS ORDERED: [UNRECOGNIZED DRUG - OTHER] IV SCH (22:00)
[2020-12-26] MEDS ORDERED: TOTAL PARENTERAL NUTRITION IV SCH (22:00)
[2020-12-26] MEDS ORDERED: AMINO ACID IV SCH (22:00)
[2020-12-26] MEDS ORDERED: DEXTROSE 70% IV SCH (22:00)
[2020-12-26] MEDS: PHENOL ORAL SPRAY 177ML BOTTLE. PO PRN (22:06)
[2020-12-26 23:00] VITALS: BP 130/81
[2020-12-27 07:15] VITALS: BP 135/64
[2020-12-27] MEDS: ASPIRIN ENTERIC COATED 81 MG TABLET.DR. PO SCH (08:00)
[2020-12-27] MEDS: PSYLLIUM HUSK (SUGAR FREE) 1 PKT PACKET PO SCH (09:00)
[2020-12-27] MEDS: LOSARTAN POTASSIUM 50 MG TABLET. PO SCH (09:00)
--- NOTE | 2020-12-27 09:28 | PDOC ---
SURGICAL PROGRESS NOTE DATE: 12/27/20 TIME: 09:27 Subjective Pt denies N/V, urge to have bowel movement Vital Signs Vital Signs Date Time Temp Pulse Resp B/P (MAP) Pulse Ox O2 Delivery O2 Flow Rate FiO2 12/27/20 07:15 98.6 77 16 135/64 (87) 95 Nasal Cannula 1.0 98.6 I&O Intake and Output 12/27/20 07:00 Intake Total 1512 ml Output Total 1200 ml Balance 312 ml IV Total 1512 ml Output Urine Total 1100 ml Gastric Drainage Total 100 ml # Voids 4 # Bowel Movements 2 General: Alert, Oriented X3, Cooperative, No acute distress Abdomen: Soft, No tenderness Labs Laboratory Tests Test 12/25/20 10:30 White Blood Count 16.5 x10^3/uL (4.0-11.0) Red Blood Count 3.45 x10^6/uL (3.50-5.40) Hemoglobin 10.4 g/dL (12.0-15.5) Hematocrit 31.7 % (36.0-47.0) Mean Corpuscular Volume 92 fL (79-100) Mean Corpuscular Hemoglobin 30 pg (25-35) Mean Corpuscular Hemoglobin Concent 33 g/dL (31-37) Red Cell Distribution Width 13.7 % (11.5-14.5) Platelet Count 178 x10^3/uL (140-400) Neutrophils (%) (Auto) 92 % (31-73) Lymphocytes (%) (Auto) 4 % (24-48) Monocytes (%) (Auto) 3 % (0-9) Eosinophils (%) (Auto) 0 % (0-3) Basophils (%) (Auto) 1 % (0-3) Neutrophils # (Auto) 15.2 x10^3/uL (1.8-7.7) Lymphocytes # (Auto) 0.6 x10^3/uL (1.0-4.8) Monocytes # (Auto) 0.6 x10^3/uL (0.0-1.1) Eosinophils # (Auto) 0.0 x10^3/uL (0.0-0.7) Basophils # (Auto) 0.1 x10^3/uL (0.0-0.2) Segmented Neutrophils % 75 % (35-66) Band Neutrophils % 16 % (0-9) Lymphocytes % 4 % (24-48) Monocytes % 4 % (0-10) Basophils % 1 % (0-3) Platelet Estimate Adequate (ADEQUATE) Sodium Level 137 mmol/L (136-145) Potassium Level 4.5 mmol/L (3.5-5.1) Chloride Level 105 mmol/L (98-107) Carbon Dioxide Level 26 mmol/L (21-32) Anion Gap 6 (6-14) Blood Urea Nitrogen 39 mg/dL (7-20) Creatinine 1.0 mg/dL (0.6-1.0) Estimated GFR (Cockcroft-Gault) 63.5 BUN/Creatinine Ratio 39 (6-20) Glucose Level 145 mg/dL (70-99) Calcium Level 8.9 mg/dL (8.5-10.1) Total Bilirubin 0.3 mg/dL (0.2-1.0) Aspartate Amino Transf (AST/SGOT) 42 U/L (15-37) Alanine Aminotransferase (ALT/SGPT) 193 U/L (14-59) Alkaline Phosphatase 136 U/L (46-116) Total Protein 6.2 g/dL (6.4-8.2) Albumin 2.4 g/dL (3.4-5.0) Albumin/Globulin Ratio 0.6 (1.0-1.7) Problem List Problems Medical Problems: (1) SBO (small bowel obstruction) Status: Acute Assessment/Plan s/p appendectomy d/c NGT start clears Justicifation of Admission Dx: Justifications for Admission: Justification of Admission Dx: Yes BELINDA GUAJARDO MD Dec 27, 2020 09:28
[2020-12-27] MEDS: PANTOPRAZOLE IV PUSH 40 MG VIAL. IVP SCH (10:17)
[2020-12-27] MEDS: HEPARIN for SUB-Q USE 5,000 UNIT/ML VIAL. SQ SCH ×2 (10:23→20:27)
[2020-12-27 10:40] LABS: ALBUMIN 2.5 g/dL (3.4-5.0); ALBUMIN/GLOBULIN RATIO 0.5 (1.0-1.7); CALCIUM 9.3 mg/dL (8.5-10.1); CREATININE 0.9 mg/dL (0.6-1.0); GFR 71.7; MAGNESIUM 1.9 mg/dL (1.8-2.4); PHOSPHORUS 3.1 mg/dL (2.6-4.7); POTASSIUM 3.9 mmol/L (3.5-5.1); TOTAL BILIRUBIN 0.5 mg/dL (0.2-1.0); TOTAL PROTEIN 7.1 g/dL (6.4-8.2)
[2020-12-27] MEDS: TPN PER PHARMACY MC PRN (10:49)
--- NOTE | 2020-12-27 10:50 | NUR ---
Pharmacy TPN Dosing Note S: OMAR LYON is a 85 year old F Currently receiving Central Continuous TPN started 12/16/20 B:Pertinent PMH: SBO Height: 5 feet, 2 inches Weight: 72.001589 kg Current diet: full liquid diet LABS: Sodium: 138 Potassium: 3.9 Chloride: 105 Calcium: 9.3 Corrected Calcium: 10.50 Magnesium: 1.9 CO2: 24 SCr: 0.9 Glucose: 84 Albumin: 2.5 AST: 23 ALT: 123 TPN FORMULA: TPN TYPE: Central Continuous AMINO ACIDS: 60 gm DEXTROSE: 195 gm LIPIDS: 20 gm SODIUM CHLORIDE: 90 mEq SODIUM ACETATE: - mEq SODIUM PHOSPHATE: - mmol POTASSIUM CHLORIDE: 0 mEq POTASSIUM ACETATE: - mEq POTASSIUM PHOSPHATE: 13.6 mmol MAGNESIUM: 10 mEq CALCIUM: 5 mEq INSULIN: - units MULTIPLE VITAMIN: 5 ml TRACE ELEMENTS: 1 ml ml(s) TPN PLAN: Corrected calcium slightly elevated, will decrease. Otherwise, continue same tpn. R: Continue TPN as ordered Will monitor electrolytes, glucose, and tolerance to TPN. POPPY MONTOYA, [facility], 12/27/20 [id number]
--- NOTE | 2020-12-27 10:58 | PDOC ---
[facility] PROGRESS NOTE Date of Service DOS: DATE: 12/27/20 TIME: 10:56 Chief Complaint Chief Complaint A/P: Small Bowel Obstruction - s/p ex-lap and appy on 12/24/2020 Elevated troponins - likely demand ischemia. echo with preserved EF Hypertensive urgency - improved Hyperglycemia HLD - LDL extremely high, would be good candidate for PCSK9 inhibitor injections outpatient H/o CVA FEN - NPO PPX - lovenox FULL CODE DIspo - inpatient History of Present Illness History of Present Illness Ms Caro is 85-year-old female with past medical history HTN, presents to the ED with complaints of abdominal pain, nausea, and vomiting. She reports epigastric abdominal pain, 10/. She denies any associated fever, chest pain, or diarrhea. States her last bowel movement was yesterday and she last ate yesterday morning. She has received both of reflexive COVID-19 vaccines. Labs on admission showed platelets 132, BG 138, troponin 0.060, with repeat troponin 0.208, trended down to 0.200. CT abdomen/pelvis showed small bowel obstruction with possible transition point in the distal ileum. She had NG tube placed in the ED. Admitted patient for medical management. 12/11: Pulled out NGT overnight. She is up in the chair, not passing flatus, no BM. Pain 2/10. 12/12: Pain 10. Not passing flatus belching frequently. No further emesis at this time. No chest pain or shortness of breath. Advised we will start IV nutrition today. 12/13: Multiple bouts of emesis failed NG tube placement 3 times radiology to perform under fluoroscopy today. Tolerating PPN well. No CP or SOB. 12/14: No flatus or bowel movement. Tolerating NG tube well. Pain reasonably controlled. BUN elevated. With her lipid panel would favor holding off on lipid formulation and continue PPN, add PPI. 12/15: Did not tolerate clamping with sesame oil. Pain is little worse today. No flatus few bowel sounds. PICC placed and TPN. 12/16: Afebrile. No flatus or bowel movement. PICC in place. Will transition from PPN to TPN today. Pain is stable. 12/17: We discussed her current disposition with her nurse and reviewed her chart. She has transitioned to TPN and her pain remains stable. 12/18: She continues on TPN and her pain is stable. She mentioned this morning that she is able to produce some flatus. Her NG tube was not clamped this morning. At this time, we will await surgery input into Mrs. Caro's current disposition. 12/19: We discussed her current disposition with her nurse and reviewed her chart. She was seen by surgery yesterday and her NG tube was clamped. The goal is to avoid surgery at this time. She continues to produce some flatus and continues receiving TPN. 12/20: She appears much better and her NG tube has been removed. She is now receiving liquids and we will work towards improving her diet. We reviewed Mrs. Caro's chart and discussed her current disposition with her nurse. 12/21: She was sitting up, comfortable, awake and alert. Mrs. Caro continues to improve and her NG tube remains removed. She is still receiving TPN and is currently on clear liquids and jello. We will continue to work with GI to advance her diet. 12/22: She continues to improve her diet, as she is now eating about a spoonful or two of oatmeal. She states that her diet is normally very light, but when asked, she felt that she was not back to her usual baseline. She continues TPN. 12/23: Last night, developed multiple bouts of nausea and vomiting. NG tube placement was re-attempted but failed. Dr. Klein was consulted and the patient will have possible surgery tomorrow morning. 12/24: Patient seen and evaluated. She was taken to the OR today and had exploratory laparotomy with lysis of adhesions and appendectomy. Chest x-ray was obtained following surgery that showed persistent distended air-filled small bowel throughout the abdomen 12/25: Afebrile overnight. NG tube with 400 cc output. She feels the urge to have a bowel movement but is not passing flatus yet. No chest pain or shortness of breath. She does note multiple strange dreams overnight and attempted to call her sister at 3 AM. 12/26: No acute events overnight. States she stooled yesterday and this morning. Denies vomiting. NG tube with 100 cc output this morning. 12/27: Patient stooled again today. NG tube discontinued, advance to clears. Continue monitoring advance diet as tolerated. Will order PT/OT. Vitals/I&O Vitals/I&O: Vital Signs Date Time Temp Pulse Resp B/P (MAP) Pulse Ox O2 Delivery O2 Flow Rate FiO2 12/27/20 07:15 98.6 77 16 135/64 (87) 95 Nasal Cannula 1.0 98.6 I & O 12/26/20 12/26/20 12/27/20 15:00 23:00 07:00 Intake Total 1512 ml Output Total 100 ml 1100 ml Balance -100 ml 412 ml Physical Exam General: Alert, Oriented X3, Cooperative, No acute distress Heart: Regular rate, No murmurs Lungs: Clear Abdomen: Soft, No tenderness Extremities: No clubbing, No edema, Normal pulses Skin: No rashes Labs Labs: Laboratory Tests Test 12/27/20 10:00 Sodium Level 138 mmol/L (136-145) Potassium Level 3.9 mmol/L (3.5-5.1) Chloride Level 105 mmol/L (98-107) Carbon Dioxide Level 24 mmol/L (21-32) Anion Gap 9 (6-14) Blood Urea Nitrogen 24 mg/dL (7-20) Creatinine 0.9 mg/dL (0.6-1.0) Estimated GFR (Cockcroft-Gault) 71.7 BUN/Creatinine Ratio 27 (6-20) Glucose Level 84 mg/dL (70-99) Calcium Level 9.3 mg/dL (8.5-10.1) Phosphorus Level 3.1 mg/dL (2.6-4.7) Magnesium Level 1.9 mg/dL (1.8-2.4) Total Bilirubin 0.5 mg/dL (0.2-1.0) Aspartate Amino Transf (AST/SGOT) 23 U/L (15-37) Alanine Aminotransferase (ALT/SGPT) 123 U/L (14-59) Alkaline Phosphatase 111 U/L (46-116) Total Protein 7.1 g/dL (6.4-8.2) Albumin 2.5 g/dL (3.4-5.0) Albumin/Globulin Ratio 0.5 (1.0-1.7) Assessment and Plan Assessmemt and Plan Problems Medical Problems: (1) SBO (small bowel obstruction) Status: Acute Comment Review of Relevant I have reviewed the following items mekhi (where applicable) has been applied. Medications: Current Medications Medications (Trade) Dose Ordered Sig/Amy Route PRN Reason Start Time Stop Time Status Last Admin Dose Admin Sodium Chloride 90 meq/Potassium Phosphate 13.6 mmol/Magnesium Sulfate 10 meq/ Calcium Gluconate 10 meq/ Multivitamins 5 ml/Zinc/Copper/ Manganese/ Selenium 1 ml/ Total Parenteral Nutrition/Amino Acids/Dextrose/ Fat Emulsion Intravenous 1,512 ml @ 63 mls/hr TPN CONT IV 12/26/20 22:00 12/27/20 21:59 12/26/20 21:57 Justifications for Admission Other Justification JERZY ALLEN MD Dec 27, 2020 10:58
[2020-12-27 11:05] VITALS: BP 141/69
[2020-12-27] MEDS: IV NORMAL SALINE 1000ML BAG 1,000 ML IV SCH (11:15)
[2020-12-27 15:08] VITALS: BP 128/69
--- NOTE | 2020-12-27 17:24 | NUR ---
NG removed per doctor ordered. Patient tolerated the procedure well.
[2020-12-27 19:00] VITALS: BP 142/72
[2020-12-27] MEDS ORDERED: TOTAL PARENTERAL NUTRITION IV SCH (22:00)
[2020-12-27] MEDS ORDERED: DEXTROSE 70% IV SCH (22:00)
[2020-12-27] MEDS ORDERED: AMINO ACID IV SCH (22:00)
[2020-12-27] MEDS ORDERED: [UNRECOGNIZED DRUG - OTHER] IV SCH (22:00)
[2020-12-27 23:05] VITALS: BP 112/52
[2020-12-28 03:13] VITALS: BP 116/43
[2020-12-28 07:15] VITALS: BP 130/57
[2020-12-28] MEDS: PSYLLIUM HUSK (SUGAR FREE) 1 PKT PACKET PO SCH (09:00)
[2020-12-28] MEDS: ASPIRIN ENTERIC COATED 81 MG TABLET.DR. PO SCH (10:01)
[2020-12-28] MEDS: LOSARTAN POTASSIUM 50 MG TABLET. PO SCH (10:02)
[2020-12-28] MEDS: PANTOPRAZOLE IV PUSH 40 MG VIAL. IVP SCH (10:02)
[2020-12-28] MEDS: ACETAMINOPHEN 325 MG TABLET. PO PRN ×2 (10:04→23:28)
[2020-12-28] MEDS: HEPARIN for SUB-Q USE 5,000 UNIT/ML VIAL. SQ SCH ×2 (10:11→21:36)
--- NOTE | 2020-12-28 10:18 | PDOC ---
[facility] PROGRESS NOTE Date of Service DOS: DATE: 12/28/20 TIME: 10:14 Chief Complaint Chief Complaint A/P: Small Bowel Obstruction - s/p ex-lap and appy on 12/24/2020 Elevated troponins - likely demand ischemia. echo with preserved EF Hypertensive urgency - improved Hyperglycemia HLD - LDL extremely high, would be good candidate for PCSK9 inhibitor injections outpatient H/o CVA FEN - NPO PPX - lovenox FULL CODE DIspo - inpatient History of Present Illness History of Present Illness Ms Caro is 85-year-old female with past medical history HTN, presents to the ED with complaints of abdominal pain, nausea, and vomiting. She reports epigastric abdominal pain, 01/20. She denies any associated fever, chest pain, or diarrhea. States her last bowel movement was yesterday and she last ate yesterday morning. She has received both of reflexive COVID-19 vaccines. Labs on admission showed platelets 132, BG 138, troponin 0.060, with repeat troponin 0.208, trended down to 0.200. CT abdomen/pelvis showed small bowel obstruction with possible transition point in the distal ileum. She had NG tube placed in the ED. Admitted patient for medical management. 12/11: Pulled out NGT overnight. She is up in the chair, not passing flatus, no BM. Pain 2/10. 12/12: Pain 10. Not passing flatus belching frequently. No further emesis at this time. No chest pain or shortness of breath. Advised we will start IV nutrition today. 12/13: Multiple bouts of emesis failed NG tube placement 3 times radiology to perform under fluoroscopy today. Tolerating PPN well. No CP or SOB. 12/14: No flatus or bowel movement. Tolerating NG tube well. Pain reasonably controlled. BUN elevated. With her lipid panel would favor holding off on lipid formulation and continue PPN, add PPI. 12/15: Did not tolerate clamping with sesame oil. Pain is little worse today. No flatus few bowel sounds. PICC placed and TPN. 12/16: Afebrile. No flatus or bowel movement. PICC in place. Will transition from PPN to TPN today. Pain is stable. 12/17: We discussed her current disposition with her nurse and reviewed her chart. She has transitioned to TPN and her pain remains stable. 12/18: She continues on TPN and her pain is stable. She mentioned this morning that she is able to produce some flatus. Her NG tube was not clamped this morning. At this time, we will await surgery input into Mrs. Caro's current disposition. 12/19: We discussed her current disposition with her nurse and reviewed her chart. She was seen by surgery yesterday and her NG tube was clamped. The goal is to avoid surgery at this time. She continues to produce some flatus and continues receiving TPN. 12/20: She appears much better and her NG tube has been removed. She is now receiving liquids and we will work towards improving her diet. We reviewed Mrs. Caro's chart and discussed her current disposition with her nurse. 12/21: She was sitting up, comfortable, awake and alert. Mrs. Caro continues to improve and her NG tube remains removed. She is still receiving TPN and is currently on clear liquids and jello. We will continue to work with GI to advance her diet. 12/22: She continues to improve her diet, as she is now eating about a spoonful or two of oatmeal. She states that her diet is normally very light, but when asked, she felt that she was not back to her usual baseline. She continues TPN. 12/23: Last night, developed multiple bouts of nausea and vomiting. NG tube placement was re-attempted but failed. Dr. Klein was consulted and the patient will have possible surgery tomorrow morning. 12/24: Patient seen and evaluated. She was taken to the OR today and had exploratory laparotomy with lysis of adhesions and appendectomy. Chest x-ray was obtained following surgery that showed persistent distended air-filled small bowel throughout the abdomen 12/25: Afebrile overnight. NG tube with 400 cc output. She feels the urge to have a bowel movement but is not passing flatus yet. No chest pain or shortness of breath. She does note multiple strange dreams overnight and attempted to call her sister at 3 AM. 12/26: No acute events overnight. States she stooled yesterday and this morning. Denies vomiting. NG tube with 100 cc output this morning. 12/27: Patient stooled again today. NG tube discontinued, advance to clears. Continue monitoring advance diet as tolerated. Will order PT/OT. 12/28: Sitting upright in bedside chair. Feels well. +Flatus, +stools. Will like to try advancement of diet. Awaiting PT/OT recommendations as patient lives alone. Vitals/I&O Vitals/I&O: Vital Signs Date Time Temp Pulse Resp B/P (MAP) Pulse Ox O2 Delivery O2 Flow Rate FiO2 12/28/20 10:02 82 130/57 12/28/20 08:15 Room Air 12/28/20 07:15 98.9 16 94 98.9 12/27/20 15:08 1.0 I & O 12/27/20 12/27/20 12/28/20 15:00 23:00 07:00 Intake Total 0 ml 360 ml Balance 0 ml 360 ml Physical Exam General: Alert, Oriented X3, Cooperative, No acute distress Heart: Regular rate, No murmurs Lungs: Clear Abdomen: Soft, No tenderness Extremities: No clubbing, No edema, Normal pulses Skin: No rashes Assessment and Plan Assessmemt and Plan Problems Medical Problems: (1) SBO (small bowel obstruction) Status: Acute Comment Review of Relevant I have reviewed the following items mekhi (where applicable) has been applied. Medications: Current Medications Medications (Trade) Dose Ordered Sig/Amy Route PRN Reason Start Time Stop Time Status Last Admin Dose Admin Sodium Chloride 90 meq/Potassium Phosphate 13.6 mmol/Magnesium Sulfate 10 meq/ Calcium Gluconate 5 meq/ Multivitamins 5 ml/Zinc/Copper/ Manganese/ Selenium 1 ml/ Total Parenteral Nutrition/Amino Acids/Dextrose/ Fat Emulsion Intravenous 1,512 ml @ 63 mls/hr TPN CONT IV 12/27/20 22:00 12/28/20 21:59 12/27/20 20:16 Justifications for Admission Other Justification JERZY ALLEN MD Dec 28, 2020 10:18
[2020-12-28] MEDS: IV NORMAL SALINE 1000ML BAG 1,000 ML IV SCH (11:05)
[2020-12-28 11:15] VITALS: BP 112/48
--- NOTE | 2020-12-28 12:10 | NUR ---
SW following. Discussed with RN, pt from home and wants to go home upon discharge. Per RN, pt will be ready to discharge on Thursday (12/31/20). PT/OT reordered to see pt. SW will continue to follow.
[2020-12-28] MEDS: TPN PER PHARMACY MC PRN (14:14)
--- NOTE | 2020-12-28 14:14 | NUR ---
Pharmacy TPN Dosing Note S: OMAR LYON is a 85 year old F Currently receiving Central Continuous TPN started 12/16/20 B:Pertinent PMH: SBO Height: 5 feet, 2 inches Weight: 72.528323 kg Current diet: full liquid diet LABS: Sodium: 138 Potassium: 3.9 Chloride: 105 Calcium: 9.3 Corrected Calcium: 10.50 Magnesium: 1.9 CO2: 24 SCr: 0.9 Glucose: 84 Albumin: 2.5 AST: 23 ALT: 123 TPN FORMULA: TPN TYPE: Central Continuous AMINO ACIDS: 60 gm DEXTROSE: 195 gm LIPIDS: 20 gm SODIUM CHLORIDE: 90 mEq POTASSIUM PHOSPHATE: 13.6 mmol MAGNESIUM: 10 mEq CALCIUM: 5 mEq MULTIPLE VITAMIN: 5 ml TRACE ELEMENTS: 1 ml ml(s) TPN PLAN: No labs today, patient advanced to full liquid diet. No changes to TPN. R: Continue same TPN formula. Will monitor electrolytes, glucose, and tolerance to TPN. KRISTIAN PULLIAM [facility], 12/28/20 [id number]
--- NOTE | 2020-12-28 14:18 | PDOC ---
SURGICAL PROGRESS NOTE DATE: 12/28/20 TIME: 14:17 Subjective Pt reports doing well, leatha PO passing stools Vital Signs Vital Signs Date Time Temp Pulse Resp B/P (MAP) Pulse Ox O2 Delivery O2 Flow Rate FiO2 12/28/20 11:15 98.0 87 18 112/48 (69) 97 Nasal Cannula 1.0 98.0 I&O Intake and Output 12/28/20 07:00 Intake Total 360 ml Balance 360 ml Intake Oral 360 ml # Voids 5 # Bowel Movements 1 General: Alert, Oriented X3, Cooperative, No acute distress Abdomen: Soft, No tenderness Labs Laboratory Tests Test 12/27/20 10:00 Sodium Level 138 mmol/L (136-145) Potassium Level 3.9 mmol/L (3.5-5.1) Chloride Level 105 mmol/L (98-107) Carbon Dioxide Level 24 mmol/L (21-32) Anion Gap 9 (6-14) Blood Urea Nitrogen 24 mg/dL (7-20) Creatinine 0.9 mg/dL (0.6-1.0) Estimated GFR (Cockcroft-Gault) 71.7 BUN/Creatinine Ratio 27 (6-20) Glucose Level 84 mg/dL (70-99) Calcium Level 9.3 mg/dL (8.5-10.1) Phosphorus Level 3.1 mg/dL (2.6-4.7) Magnesium Level 1.9 mg/dL (1.8-2.4) Total Bilirubin 0.5 mg/dL (0.2-1.0) Aspartate Amino Transf (AST/SGOT) 23 U/L (15-37) Alanine Aminotransferase (ALT/SGPT) 123 U/L (14-59) Alkaline Phosphatase 111 U/L (46-116) Total Protein 7.1 g/dL (6.4-8.2) Albumin 2.5 g/dL (3.4-5.0) Albumin/Globulin Ratio 0.5 (1.0-1.7) Problem List Problems Medical Problems: (1) SBO (small bowel obstruction) Status: Acute Assessment/Plan s/p appendectomy ADAT and work towards d/c Justicifation of Admission Dx: Justifications for Admission: Justification of Admission Dx: Yes BELINDA GUAJARDO MD Dec 28, 2020 14:18
[2020-12-28 15:13] VITALS: BP 119/69
[2020-12-28 19:00] VITALS: BP 110/70
[2020-12-28] MEDS ORDERED: AMINO ACID IV SCH (22:00)
[2020-12-28] MEDS ORDERED: TOTAL PARENTERAL NUTRITION IV SCH (22:00)
[2020-12-28] MEDS ORDERED: [UNRECOGNIZED DRUG - OTHER] IV SCH (22:00)
[2020-12-28] MEDS ORDERED: DEXTROSE 70% IV SCH (22:00)
[2020-12-28 23:30] VITALS: BP 97/45
[2020-12-29 03:13] VITALS: BP 128/54
[2020-12-29 07:21] VITALS: BP 108/46
[2020-12-29] MEDS: LOSARTAN POTASSIUM 50 MG TABLET. PO SCH (08:24)
[2020-12-29] MEDS: PANTOPRAZOLE IV PUSH 40 MG VIAL. IVP SCH (08:24)
[2020-12-29] MEDS: PSYLLIUM HUSK (SUGAR FREE) 1 PKT PACKET PO SCH (08:24)
[2020-12-29] MEDS: ASPIRIN ENTERIC COATED 81 MG TABLET.DR. PO SCH (08:24)
[2020-12-29] MEDS: HEPARIN for SUB-Q USE 5,000 UNIT/ML VIAL. SQ SCH ×2 (08:33→20:50)
--- NOTE | 2020-12-29 08:35 | PDOC ---
[facility] PROGRESS NOTE Date of Service DOS: DATE: 12/29/20 TIME: 08:34 Chief Complaint Chief Complaint A/P: Small Bowel Obstruction - s/p ex-lap and appy on 12/24/2020 Elevated troponins - likely demand ischemia. echo with preserved EF Hypertensive urgency - improved Hyperglycemia HLD - LDL extremely high, would be good candidate for PCSK9 inhibitor injections outpatient H/o CVA FEN - NPO PPX - lovenox FULL CODE DIspo - inpatient History of Present Illness History of Present Illness Ms Caro is 85-year-old female with past medical history HTN, presents to the ED with complaints of abdominal pain, nausea, and vomiting. She reports epigastric abdominal pain, /. She denies any associated fever, chest pain, or diarrhea. States her last bowel movement was yesterday and she last ate yesterday morning. She has received both of reflexive COVID-19 vaccines. Labs on admission showed platelets 132, BG 138, troponin 0.060, with repeat troponin 0.208, trended down to 0.200. CT abdomen/pelvis showed small bowel obstruction with possible transition point in the distal ileum. She had NG tube placed in the ED. Admitted patient for medical management. 12/11: Pulled out NGT overnight. She is up in the chair, not passing flatus, no BM. Pain 2/10. 12/12: Pain 10. Not passing flatus belching frequently. No further emesis at this time. No chest pain or shortness of breath. Advised we will start IV nutrition today. 12/13: Multiple bouts of emesis failed NG tube placement 3 times radiology to perform under fluoroscopy today. Tolerating PPN well. No CP or SOB. 12/14: No flatus or bowel movement. Tolerating NG tube well. Pain reasonably controlled. BUN elevated. With her lipid panel would favor holding off on lipid formulation and continue PPN, add PPI. 12/15: Did not tolerate clamping with sesame oil. Pain is little worse today. No flatus few bowel sounds. PICC placed and TPN. 12/16: Afebrile. No flatus or bowel movement. PICC in place. Will transition from PPN to TPN today. Pain is stable. 12/17: We discussed her current disposition with her nurse and reviewed her chart. She has transitioned to TPN and her pain remains stable. 12/18: She continues on TPN and her pain is stable. She mentioned this morning that she is able to produce some flatus. Her NG tube was not clamped this morning. At this time, we will await surgery input into Mrs. Caro's current disposition. 12/19: We discussed her current disposition with her nurse and reviewed her chart. She was seen by surgery yesterday and her NG tube was clamped. The goal is to avoid surgery at this time. She continues to produce some flatus and continues receiving TPN. 12/20: She appears much better and her NG tube has been removed. She is now receiving liquids and we will work towards improving her diet. We reviewed Mrs. Caro's chart and discussed her current disposition with her nurse. 12/21: She was sitting up, comfortable, awake and alert. Mrs. Caro continues to improve and her NG tube remains removed. She is still receiving TPN and is currently on clear liquids and jello. We will continue to work with GI to advance her diet. 12/22: She continues to improve her diet, as she is now eating about a spoonful or two of oatmeal. She states that her diet is normally very light, but when asked, she felt that she was not back to her usual baseline. She continues TPN. 12/23: Last night, developed multiple bouts of nausea and vomiting. NG tube placement was re-attempted but failed. Dr. Klein was consulted and the patient will have possible surgery tomorrow morning. 12/24: Patient seen and evaluated. She was taken to the OR today and had exploratory laparotomy with lysis of adhesions and appendectomy. Chest x-ray was obtained following surgery that showed persistent distended air-filled small bowel throughout the abdomen 12/25: Afebrile overnight. NG tube with 400 cc output. She feels the urge to have a bowel movement but is not passing flatus yet. No chest pain or shortness of breath. She does note multiple strange dreams overnight and attempted to call her sister at 3 AM. 12/26: No acute events overnight. States she stooled yesterday and this morning. Denies vomiting. NG tube with 100 cc output this morning. 12/27: Patient stooled again today. NG tube discontinued, advance to clears. Continue monitoring advance diet as tolerated. Will order PT/OT. 12/28: Sitting upright in bedside chair. Feels well. +Flatus, +stools. Will like to try advancement of diet. Awaiting PT/OT recommendations as patient lives alone. 12/29: Sitting upright in chair. Had regular diet yesterday stating he did not feel slightly nauseous, but no vomiting. Stooling. Recommended soft diet instead of regular diet. Worked with PT/OT recommending SNU, and patient agreeable. This may likely happen on Thursday. Vitals/I&O Vitals/I&O: Vital Signs Date Time Temp Pulse Resp B/P (MAP) Pulse Ox O2 Delivery O2 Flow Rate FiO2 12/29/20 07:21 98.4 80 14 108/46 (66) 98 Room Air 98.4 12/28/20 11:15 1.0 I & O 12/28/20 12/28/20 12/29/20 15:00 23:00 07:00 Intake Total 60 ml 400 ml Balance 60 ml 400 ml Physical Exam General: Alert, Oriented X3, Cooperative, No acute distress Heart: Regular rate, No murmurs Lungs: Clear Abdomen: Soft, No tenderness Extremities: No clubbing, No edema, Normal pulses Skin: No rashes Assessment and Plan Assessmemt and Plan Problems Medical Problems: (1) SBO (small bowel obstruction) Status: Acute Comment Review of Relevant I have reviewed the following items mekhi (where applicable) has been applied. Medications: Current Medications Medications (Trade) Dose Ordered Sig/Amy Route PRN Reason Start Time Stop Time Status Last Admin Dose Admin Sodium Chloride 90 meq/Potassium Phosphate 13.6 mmol/Magnesium Sulfate 10 meq/ Calcium Gluconate 5 meq/ Multivitamins 5 ml/Zinc/Copper/ Manganese/ Selenium 1 ml/ Total Parenteral Nutrition/Amino Acids/Dextrose/ Fat Emulsion Intravenous 1,512 ml @ 63 mls/hr TPN CONT IV 12/28/20 22:00 12/29/20 21:59 12/28/20 21:35 Justifications for Admission Other Justification JERZY ALLEN MD Dec 29, 2020 08:35
--- NOTE | 2020-12-29 09:57 | PDOC ---
SURGICAL PROGRESS NOTE DATE: 12/29/20 TIME: 09:56 Subjective Pt with c/o some bloating, no N/V, passing flatus and stools Vital Signs Vital Signs Date Time Temp Pulse Resp B/P (MAP) Pulse Ox O2 Delivery O2 Flow Rate FiO2 12/29/20 08:24 80 108/46 12/29/20 07:21 98.4 14 98 Room Air 98.4 12/28/20 11:15 1.0 I&O Intake and Output 12/29/20 07:00 Intake Total 460 ml Balance 460 ml Intake Oral 460 ml # Voids 7 General: Alert, Oriented X3, Cooperative, No acute distress Abdomen: Soft, No tenderness, Other (mild distention) Labs Laboratory Tests Test 12/27/20 10:00 Sodium Level 138 mmol/L (136-145) Potassium Level 3.9 mmol/L (3.5-5.1) Chloride Level 105 mmol/L (98-107) Carbon Dioxide Level 24 mmol/L (21-32) Anion Gap 9 (6-14) Blood Urea Nitrogen 24 mg/dL (7-20) Creatinine 0.9 mg/dL (0.6-1.0) Estimated GFR (Cockcroft-Gault) 71.7 BUN/Creatinine Ratio 27 (6-20) Glucose Level 84 mg/dL (70-99) Calcium Level 9.3 mg/dL (8.5-10.1) Phosphorus Level 3.1 mg/dL (2.6-4.7) Magnesium Level 1.9 mg/dL (1.8-2.4) Total Bilirubin 0.5 mg/dL (0.2-1.0) Aspartate Amino Transf (AST/SGOT) 23 U/L (15-37) Alanine Aminotransferase (ALT/SGPT) 123 U/L (14-59) Alkaline Phosphatase 111 U/L (46-116) Total Protein 7.1 g/dL (6.4-8.2) Albumin 2.5 g/dL (3.4-5.0) Albumin/Globulin Ratio 0.5 (1.0-1.7) Problem List Problems Medical Problems: (1) SBO (small bowel obstruction) Status: Acute Assessment/Plan s/p appendectomy agree with slow ADAT Justicifation of Admission Dx: Justifications for Admission: Justification of Admission Dx: Yes BELINDA GUAJARDO MD Dec 29, 2020 09:57
[2020-12-29 11:00] VITALS: BP 120/67
[2020-12-29] MEDS: IV NORMAL SALINE 1000ML BAG 1,000 ML IV SCH (11:15)
--- NOTE | 2020-12-29 12:24 | NUR ---
Pharmacy TPN Dosing Note S: OMAR LYON is a 85 year old F Currently receiving Central Continuous TPN started 12/16/20 B:Pertinent PMH: SBO Height: 5 feet, 2 inches Weight: 72.204323 kg Current diet: full liquid diet LABS: Sodium: 138 Potassium: 3.9 Chloride: 105 Calcium: 9.3 Corrected Calcium: 10.50 Magnesium: 1.9 CO2: 24 SCr: 0.9 Glucose: 84 Albumin: 2.5 AST: 23 ALT: 123 TPN FORMULA: TPN TYPE: Central Continuous AMINO ACIDS: 60 gm DEXTROSE: 195 gm LIPIDS: 20 gm SODIUM CHLORIDE: 90 mEq SODIUM ACETATE: - mEq SODIUM PHOSPHATE: - mmol POTASSIUM CHLORIDE: 0 mEq POTASSIUM ACETATE: - mEq POTASSIUM PHOSPHATE: 13.6 mmol MAGNESIUM: 10 mEq CALCIUM: 5 mEq INSULIN: - units MULTIPLE VITAMIN: 5 ml TRACE ELEMENTS: 1 ml ml(s) TPN PLAN: No labs today, patient advanced to full liquid diet. No changes to TPN. R: Continue TPN AT 63ML/HR Will monitor electrolytes, glucose, and tolerance to TPN. RAMAKRISHNA BROWN [facility], 12/29/20 [id number]
[2020-12-29 15:00] VITALS: BP 123/61
[2020-12-29 19:30] VITALS: BP 116/56
[2020-12-29] MEDS ORDERED: [UNRECOGNIZED DRUG - OTHER] IV SCH (22:00)
[2020-12-29] MEDS ORDERED: TOTAL PARENTERAL NUTRITION IV SCH (22:00)
[2020-12-29] MEDS ORDERED: DEXTROSE 70% IV SCH (22:00)
[2020-12-29] MEDS ORDERED: AMINO ACID IV SCH (22:00)
[2020-12-29 23:20] VITALS: BP 108/47
[2020-12-30 03:36] VITALS: BP 112/49
[2020-12-30 07:00] VITALS: BP 109/43
[2020-12-30] MEDS: ASPIRIN ENTERIC COATED 81 MG TABLET.DR. PO SCH (08:51)
[2020-12-30] MEDS: HEPARIN for SUB-Q USE 5,000 UNIT/ML VIAL. SQ SCH ×2 (08:52→20:46)
--- NOTE | 2020-12-30 08:52 | PDOC ---
[facility] PROGRESS NOTE Date of Service DOS: DATE: 12/30/20 TIME: 08:51 Chief Complaint Chief Complaint A/P: Small Bowel Obstruction - s/p ex-lap and appy on 12/24/2020 Elevated troponins - likely demand ischemia. echo with preserved EF Hypertensive urgency - improved Hyperglycemia HLD - LDL extremely high, would be good candidate for PCSK9 inhibitor injections outpatient H/o CVA FEN - NPO PPX - lovenox FULL CODE DIspo - inpatient History of Present Illness History of Present Illness Ms Caro is 85-year-old female with past medical history HTN, presents to the ED with complaints of abdominal pain, nausea, and vomiting. She reports epigastric abdominal pain, /. She denies any associated fever, chest pain, or diarrhea. States her last bowel movement was yesterday and she last ate yesterday morning. She has received both of reflexive COVID-19 vaccines. Labs on admission showed platelets 132, BG 138, troponin 0.060, with repeat troponin 0.208, trended down to 0.200. CT abdomen/pelvis showed small bowel obstruction with possible transition point in the distal ileum. She had NG tube placed in the ED. Admitted patient for medical management. 12/11: Pulled out NGT overnight. She is up in the chair, not passing flatus, no BM. Pain 2/10. 12/12: Pain 10. Not passing flatus belching frequently. No further emesis at this time. No chest pain or shortness of breath. Advised we will start IV nutrition today. 12/13: Multiple bouts of emesis failed NG tube placement 3 times radiology to perform under fluoroscopy today. Tolerating PPN well. No CP or SOB. 12/14: No flatus or bowel movement. Tolerating NG tube well. Pain reasonably controlled. BUN elevated. With her lipid panel would favor holding off on lipid formulation and continue PPN, add PPI. 12/15: Did not tolerate clamping with sesame oil. Pain is little worse today. No flatus few bowel sounds. PICC placed and TPN. 12/16: Afebrile. No flatus or bowel movement. PICC in place. Will transition from PPN to TPN today. Pain is stable. 12/17: We discussed her current disposition with her nurse and reviewed her chart. She has transitioned to TPN and her pain remains stable. 12/18: She continues on TPN and her pain is stable. She mentioned this morning that she is able to produce some flatus. Her NG tube was not clamped this morning. At this time, we will await surgery input into Mrs. Caro's current disposition. 12/19: We discussed her current disposition with her nurse and reviewed her chart. She was seen by surgery yesterday and her NG tube was clamped. The goal is to avoid surgery at this time. She continues to produce some flatus and continues receiving TPN. 12/20: She appears much better and her NG tube has been removed. She is now receiving liquids and we will work towards improving her diet. We reviewed Mrs. Caro's chart and discussed her current disposition with her nurse. 12/21: She was sitting up, comfortable, awake and alert. Mrs. Caro continues to improve and her NG tube remains removed. She is still receiving TPN and is currently on clear liquids and jello. We will continue to work with GI to advance her diet. 12/22: She continues to improve her diet, as she is now eating about a spoonful or two of oatmeal. She states that her diet is normally very light, but when asked, she felt that she was not back to her usual baseline. She continues TPN. 12/23: Last night, developed multiple bouts of nausea and vomiting. NG tube placement was re-attempted but failed. Dr. Klein was consulted and the patient will have possible surgery tomorrow morning. 12/24: Patient seen and evaluated. She was taken to the OR today and had exploratory laparotomy with lysis of adhesions and appendectomy. Chest x-ray was obtained following surgery that showed persistent distended air-filled small bowel throughout the abdomen 12/25: Afebrile overnight. NG tube with 400 cc output. She feels the urge to have a bowel movement but is not passing flatus yet. No chest pain or shortness of breath. She does note multiple strange dreams overnight and attempted to call her sister at 3 AM. 12/26: No acute events overnight. States she stooled yesterday and this morning. Denies vomiting. NG tube with 100 cc output this morning. 12/27: Patient stooled again today. NG tube discontinued, advance to clears. Continue monitoring advance diet as tolerated. Will order PT/OT. 12/28: Sitting upright in bedside chair. Feels well. +Flatus, +stools. Will like to try advancement of diet. Awaiting PT/OT recommendations as patient lives alone. 12/29: Sitting upright in chair. Had regular diet yesterday stating he did not feel slightly nauseous, but no vomiting. Stooling. Recommended soft diet instead of regular diet. Worked with PT/OT recommending SNU, and patient agreeable. This may likely happen on Thursday. 12/30: Patient seen resting comfortably in bedside chair. Tolerating soft diet well. Today she states that she feels she is well enough to go home instead of SNU. Tried to convince patient to reconsider and discuss with social media senior associate tomorrow. Will increase diet to regular and see which she is able to tolerate comfortably before she discharges to home alone, home with home health, or SNU. Vitals/I&O Vitals/I&O: Vital Signs Date Time Temp Pulse Resp B/P (MAP) Pulse Ox O2 Delivery O2 Flow Rate FiO2 12/30/20 07:00 97.9 69 14 109/43 (65) 97 Room Air 97.9 I & O 12/29/20 12/29/20 12/30/20 15:00 23:00 07:00 Intake Total 340 ml 756 ml Balance 340 ml 756 ml Physical Exam General: Alert, Oriented X3, Cooperative, No acute distress Heart: Regular rate, No murmurs Lungs: Clear Abdomen: Soft, No tenderness, Other (mild distention) Extremities: No clubbing, No edema, Normal pulses Skin: No rashes Assessment and Plan Assessmemt and Plan Problems Medical Problems: (1) SBO (small bowel obstruction) Status: Acute Comment Review of Relevant I have reviewed the following items mekhi (where applicable) has been applied. Medications: Current Medications Medications (Trade) Dose Ordered Sig/Amy Route PRN Reason Start Time Stop Time Status Last Admin Dose Admin Sodium Chloride 90 meq/Potassium Phosphate 13.6 mmol/Magnesium Sulfate 10 meq/ Calcium Gluconate 5 meq/ Multivitamins 5 ml/Zinc/Copper/ Manganese/ Selenium 1 ml/ Total Parenteral Nutrition/Amino Acids/Dextrose/ Fat Emulsion Intravenous 1,512 ml @ 63 mls/hr TPN CONT IV 12/29/20 22:00 12/30/20 21:59 12/29/20 21:42 Justifications for Admission Other Justification JERZY ALLEN MD Dec 30, 2020 08:52
[2020-12-30] MEDS: PSYLLIUM HUSK (SUGAR FREE) 1 PKT PACKET PO SCH (08:54)
[2020-12-30] MEDS: LOSARTAN POTASSIUM 50 MG TABLET. PO SCH (08:54)
[2020-12-30] MEDS: PANTOPRAZOLE IV PUSH 40 MG VIAL. IVP SCH (08:55)
--- NOTE | 2020-12-30 10:18 | PDOC ---
SURGICAL PROGRESS NOTE DATE: 12/30/20 TIME: 10:18 Subjective Pt reports doing well, leatha PO, having loose stools Vital Signs Vital Signs Date Time Temp Pulse Resp B/P (MAP) Pulse Ox O2 Delivery O2 Flow Rate FiO2 12/30/20 08:54 69 109/43 12/30/20 07:00 97.9 14 97 Room Air 97.9 I&O Intake and Output 12/30/20 07:00 Intake Total 1096 ml Balance 1096 ml Intake Oral 340 ml IV Total 756 ml # Voids 3 # Bowel Movements 1 General: Alert, Oriented X3, Cooperative, No acute distress Abdomen: Soft, No tenderness Problem List Problems Medical Problems: (1) SBO (small bowel obstruction) Status: Acute Assessment/Plan s/p appendectomy OK to d/c home in AM f/u in two weeks. Justicifation of Admission Dx: Justifications for Admission: Justification of Admission Dx: Yes BELINDA GUAJARDO MD Dec 30, 2020 10:18
[2020-12-30 11:00] VITALS: BP 103/42
[2020-12-30] MEDS: IV NORMAL SALINE 1000ML BAG 1,000 ML IV SCH (11:15)
[2020-12-30 15:00] VITALS: BP 107/47
[2020-12-30 19:00] VITALS: BP 131/42
[2020-12-30 23:00] VITALS: BP 118/50
[2020-12-31 03:00] VITALS: BP 110/50
[2020-12-31 07:15] VITALS: BP 100/46
[2020-12-31 07:18] LABS: ALBUMIN 2.3 g/dL (3.4-5.0); ALBUMIN/GLOBULIN RATIO 0.6 (1.0-1.7); CALCIUM 8.5 mg/dL (8.5-10.1); CREATININE 0.9 mg/dL (0.6-1.0); GFR 71.7; MAGNESIUM 1.8 mg/dL (1.8-2.4); PHOSPHORUS 3.4 mg/dL (2.6-4.7); TOTAL BILIRUBIN 0.3 mg/dL (0.2-1.0); TOTAL PROTEIN 6.2 g/dL (6.4-8.2)
[2020-12-31] MEDS: PANTOPRAZOLE IV PUSH 40 MG VIAL. IVP SCH (07:53)
[2020-12-31] MEDS: LOSARTAN POTASSIUM 50 MG TABLET. PO SCH (08:52)
[2020-12-31] MEDS: ASPIRIN ENTERIC COATED 81 MG TABLET.DR. PO SCH (08:52)
[2020-12-31] MEDS: PSYLLIUM HUSK (SUGAR FREE) 1 PKT PACKET PO SCH (08:52)
[2020-12-31] MEDS: HEPARIN for SUB-Q USE 5,000 UNIT/ML VIAL. SQ SCH (09:01)
[2020-12-31 10:53] VITALS: BP 104/48
[2020-12-31] MEDS: IV NORMAL SALINE 1000ML BAG 1,000 ML IV SCH (11:15)
--- NOTE | 2020-12-31 13:04 | PDOC ---
[facility] PROGRESS NOTE Date of Service DOS: DATE: 12/31/20 TIME: 13:03 Chief Complaint Chief Complaint A/P: Small Bowel Obstruction - s/p ex-lap and appy on 12/24/2020 Elevated troponins - likely demand ischemia. echo with preserved EF Hypertensive urgency - improved Hyperglycemia HLD - LDL extremely high, would be good candidate for PCSK9 inhibitor injections outpatient H/o CVA FEN -regular PPX - lovenox FULL CODE DIspo - inpatient History of Present Illness History of Present Illness Ms Caro is 85-year-old female with past medical history HTN, presents to the ED with complaints of abdominal pain, nausea, and vomiting. She reports epigastric abdominal pain, /10. She denies any associated fever, chest pain, or diarrhea. States her last bowel movement was yesterday and she last ate yesterday morning. She has received both of reflexive COVID-19 vaccines. Labs on admission showed platelets 132, BG 138, troponin 0.060, with repeat troponin 0.208, trended down to 0.200. CT abdomen/pelvis showed small bowel obstruction with possible transition point in the distal ileum. She had NG tube placed in the ED. Admitted patient for medical management. 12/11: Pulled out NGT overnight. She is up in the chair, not passing flatus, no BM. Pain 2/10. 12/12: Pain 10. Not passing flatus belching frequently. No further emesis at this time. No chest pain or shortness of breath. Advised we will start IV nutrition today. 12/13: Multiple bouts of emesis failed NG tube placement 3 times radiology to perform under fluoroscopy today. Tolerating PPN well. No CP or SOB. 12/14: No flatus or bowel movement. Tolerating NG tube well. Pain reasonably controlled. BUN elevated. With her lipid panel would favor holding off on lipid formulation and continue PPN, add PPI. 12/15: Did not tolerate clamping with sesame oil. Pain is little worse today. No flatus few bowel sounds. PICC placed and TPN. 12/16: Afebrile. No flatus or bowel movement. PICC in place. Will transition from PPN to TPN today. Pain is stable. 12/17: We discussed her current disposition with her nurse and reviewed her chart. She has transitioned to TPN and her pain remains stable. 12/18: She continues on TPN and her pain is stable. She mentioned this morning that she is able to produce some flatus. Her NG tube was not clamped this morning. At this time, we will await surgery input into Mrs. Caro's current disposition. 12/19: We discussed her current disposition with her nurse and reviewed her chart. She was seen by surgery yesterday and her NG tube was clamped. The goal is to avoid surgery at this time. She continues to produce some flatus and continues receiving TPN. 12/20: She appears much better and her NG tube has been removed. She is now receiving liquids and we will work towards improving her diet. We reviewed Mrs. Caro's chart and discussed her current disposition with her nurse. 12/21: She was sitting up, comfortable, awake and alert. Mrs. Caro continues to improve and her NG tube remains removed. She is still receiving TPN and is currently on clear liquids and jello. We will continue to work with GI to advance her diet. 12/22: She continues to improve her diet, as she is now eating about a spoonful or two of oatmeal. She states that her diet is normally very light, but when asked, she felt that she was not back to her usual baseline. She continues TPN. 12/23: Last night, developed multiple bouts of nausea and vomiting. NG tube placement was re-attempted but failed. Dr. Klein was consulted and the patient will have possible surgery tomorrow morning. 12/24: Patient seen and evaluated. She was taken to the OR today and had exploratory laparotomy with lysis of adhesions and appendectomy. Chest x-ray was obtained following surgery that showed persistent distended air-filled small bowel throughout the abdomen 12/25: Afebrile overnight. NG tube with 400 cc output. She feels the urge to have a bowel movement but is not passing flatus yet. No chest pain or shortness of br eath. She does note multiple strange dreams overnight and attempted to call her sister at 3 AM. 12/26: No acute events overnight. States she stooled yesterday and this morning. Denies vomiting. NG tube with 100 cc output this morning. 12/27: Patient stooled again today. NG tube discontinued, advance to clears. Continue monitoring advance diet as tolerated. Will order PT/OT. 12/28: Sitting upright in bedside chair. Feels well. +Flatus, +stools. Will like to try advancement of diet. Awaiting PT/OT recommendations as patient lives alone. 12/29: Sitting upright in chair. Had regular diet yesterday stating he did not feel slightly nauseous, but no vomiting. Stooling. Recommended soft diet instead of regular diet. Worked with PT/OT recommending SNU, and patient agreeable. This may likely happen on Thursday. 12/30: Patient seen resting comfortably in bedside chair. Tolerating soft diet well. Today she states that she feels she is well enough to go home instead of SNU. Tried to convince patient to reconsider and discuss with licensed clinical social worker tomorrow. Will increase diet to regular and see which she is able to tolerate comfortably before she discharges to home alone, home with home health, or SNU. 12/31 Patient valuated bedside. She was laying in bed eating breakfast tolerating well. Appears that the patient wants to go home with home health opposed to SNF placement. Once we can establish this patient is cleared for discharge. Vitals/I&O Vitals/I&O: Vital Signs Date Time Temp Pulse Resp B/P (MAP) Pulse Ox O2 Delivery O2 Flow Rate FiO2 12/31/20 10:53 98.9 78 20 104/48 (66) 96 Room Air 98.9 I & O 12/30/20 12/30/20 12/31/20 15:00 23:00 07:00 Intake Total 400 ml 300 ml Balance 400 ml 300 ml Physical Exam General: Alert, Oriented X3, Cooperative, No acute distress Heart: Regular rate, No murmurs Lungs: Clear Abdomen: Soft, No tenderness Extremities: No clubbing, No edema, Normal pulses Skin: No rashes Labs Labs: Laboratory Tests Test 12/31/20 06:45 Sodium Level 137 mmol/L (136-145) Potassium Level 4.0 mmol/L (3.5-5.1) Chloride Level 108 mmol/L (98-107) Carbon Dioxide Level 21 mmol/L (21-32) Anion Gap 8 (6-14) Blood Urea Nitrogen 21 mg/dL (7-20) Creatinine 0.9 mg/dL (0.6-1.0) Estimated GFR (Cockcroft-Gault) 71.7 BUN/Creatinine Ratio 23 (6-20) Glucose Level 85 mg/dL (70-99) Calcium Level 8.5 mg/dL (8.5-10.1) Phosphorus Level 3.4 mg/dL (2.6-4.7) Magnesium Level 1.8 mg/dL (1.8-2.4) Total Bilirubin 0.3 mg/dL (0.2-1.0) Aspartate Amino Transf (AST/SGOT) 41 U/L (15-37) Alanine Aminotransferase (ALT/SGPT) 95 U/L (14-59) Alkaline Phosphatase 110 U/L (46-116) Total Protein 6.2 g/dL (6.4-8.2) Albumin 2.3 g/dL (3.4-5.0) Albumin/Globulin Ratio 0.6 (1.0-1.7) Assessment and Plan Assessmemt and Plan Problems Medical Problems: (1) SBO (small bowel obstruction) Status: Acute Comment Review of Relevant I have reviewed the following items mekhi (where applicable) has been applied. Justifications for Admission Other Justification JULISSA FRAGOSO MD Dec 31, 2020 13:04
--- NOTE | 2020-12-31 13:21 | PDOC ---
SURGICAL PROGRESS NOTE DATE: 12/31/20 TIME: 13:15 Subjective doing well tolerating diet Vital Signs Vital Signs Date Time Temp Pulse Resp B/P (MAP) Pulse Ox O2 Delivery O2 Flow Rate FiO2 12/31/20 10:53 98.9 78 20 104/48 (66) 96 Room Air 98.9 I&O Intake and Output 12/31/20 07:00 Intake Total 700 ml Balance 700 ml Intake Oral 700 ml # Voids 2 # Bowel Movements 1 Abdomen: Soft, No tenderness Labs Laboratory Tests Test 12/31/20 06:45 Sodium Level 137 mmol/L (136-145) Potassium Level 4.0 mmol/L (3.5-5.1) Chloride Level 108 mmol/L (98-107) Carbon Dioxide Level 21 mmol/L (21-32) Anion Gap 8 (6-14) Blood Urea Nitrogen 21 mg/dL (7-20) Creatinine 0.9 mg/dL (0.6-1.0) Estimated GFR (Cockcroft-Gault) 71.7 BUN/Creatinine Ratio 23 (6-20) Glucose Level 85 mg/dL (70-99) Calcium Level 8.5 mg/dL (8.5-10.1) Phosphorus Level 3.4 mg/dL (2.6-4.7) Magnesium Level 1.8 mg/dL (1.8-2.4) Total Bilirubin 0.3 mg/dL (0.2-1.0) Aspartate Amino Transf (AST/SGOT) 41 U/L (15-37) Alanine Aminotransferase (ALT/SGPT) 95 U/L (14-59) Alkaline Phosphatase 110 U/L (46-116) Total Protein 6.2 g/dL (6.4-8.2) Albumin 2.3 g/dL (3.4-5.0) Albumin/Globulin Ratio 0.6 (1.0-1.7) Laboratory Tests Test 12/31/20 06:45 Sodium Level 137 mmol/L (136-145) Potassium Level 4.0 mmol/L (3.5-5.1) Chloride Level 108 mmol/L (98-107) Carbon Dioxide Level 21 mmol/L (21-32) Anion Gap 8 (6-14) Blood Urea Nitrogen 21 mg/dL (7-20) Creatinine 0.9 mg/dL (0.6-1.0) Estimated GFR (Cockcroft-Gault) 71.7 BUN/Creatinine Ratio 23 (6-20) Glucose Level 85 mg/dL (70-99) Calcium Level 8.5 mg/dL (8.5-10.1) Phosphorus Level 3.4 mg/dL (2.6-4.7) Magnesium Level 1.8 mg/dL (1.8-2.4) Total Bilirubin 0.3 mg/dL (0.2-1.0) Aspartate Amino Transf (AST/SGOT) 41 U/L (15-37) Alanine Aminotransferase (ALT/SGPT) 95 U/L (14-59) Alkaline Phosphatase 110 U/L (46-116) Total Protein 6.2 g/dL (6.4-8.2) Albumin 2.3 g/dL (3.4-5.0) Albumin/Globulin Ratio 0.6 (1.0-1.7) Problem List Problems Medical Problems: (1) SBO (small bowel obstruction) Status: Acute Assessment/Plan can dc when arrangements set Justicifation of Admission Dx: Justifications for Admission: Justification of Admission Dx: Yes ARCHIE NULL ISOTOPE TECHNOLOGIST Dec 31, 2020 13:21
[2020-12-31] MEDS ORDERED: ASPI-886 PO (13:44)
[2020-12-31] MEDS ORDERED: PANT20TA2 PO (13:44)
--- NOTE | 2020-12-31 13:45 | SNU/HH DC ---
DISCHARGE WITH HOME HEALTH DISCHARGE INFORMATION: Discharge Date: Dec 31, 2020 Final Diagnosis: Problems Medical Problems: (1) SBO (small bowel obstruction) Status: Acute Condition on Discharge: Stable CODE STATUS: Code Status: Full HOME HEALTH: Face to Face: I certify this patient is under my care and that I, or a nurse practitioner or physician's special education teaching assistant working with me, had a face to face encounter that meets the physician face to face encounter requirements with this patient on []. Usp For: Assess & Educate Safety, Assess/Skilled Observatio RN For Eval/Treatment: Yes Physical Therapy For: Evalulation/Treatment Occupational Therapy For: Evaluation/Treatment Pt Meets Homebound Status: Unsteady balance w/ amb,, Extreme weakness w/ amb., Fatigue w/ amb. POST DISCHARGE ORDERS: Activity Instructions for Disc: Activity as tolerated Weight Bearing Status after Di: As tolerated DIET AFTER DISCHARGE: Regular Wound/Incision Care: Ice to area for comfort, Keep wound/cast CDI CHECKS AFTER DISCHARGE: Checks after discharge: Check blood press - daily, Check your Temp as needed TREATMENT/EQUIPMENT ORDERS: Adaptive Equipment Issued: Walker CERTIFICATION STATEMENT: Certification Statement: Certification Statement: Based on the above finding, I certify that this patient is confined to the home and needs intermittent group home care, physical therapy and/or speech therapy, or continues to need occupational therapy.~ This patient is under my care, and I have initiated the establishment of the plan of care.~ This patient will be followed by myself or a community physician who will periodically review the plan of care. Home Meds Active Scripts Losartan Potassium (LOSARTAN POTASSIUM) 50 Mg Tablet, 50 MG PO DAILY for 30 Days, #30 TAB 2 Refills TO REPLACE LISINOPRIL Prov:JULISSA LERMA MD 01/15/18 Psyllium Husk/Aspartame (METAMUCIL FIBER SINGLES PACKET) 3.4 Gm Powd.pack, 1 PKT PO DAILY for 30 Days, #30 PKT 11 Refills Prov:JULISSA LERMA MD 01/15/18 JULISSA FRAGOSO MD Dec 31, 2020 13:45
--- NOTE | 2020-12-31 14:03 | NUR ---
SW following. Discussed with RN, pt from home alone. SW met with pt to discuss discharge planning, explained pt does not have a skilled need as therapy is recommending home health. ELVIA spoke with pt's goddaughter, Keerthi Samuel (ph: [phone]), they are agreeable to home health. Pt has no preference, would like a walker for discharge. Pt's friend, Gauri bringing the $20 and will take pt home. Gauri will call patient to advise of warehouse picker time. RN notified. Referral faxed to [employer]. ELVIA will continue to follow. Addendum: 12/31/20 at 1447 by OZ GAN Pt accepted with [facility]. Discharge orders faxed.
[2020-12-31 14:44] VITALS: BP 109/54
--- NOTE | 2020-12-31 19:17 | NUR ---
Discharge Note: OMAR LYON[facility] [place] Discharge instructions and discharge home medications reviewed with Patient and a copy given. All questions have been answered and understanding verbalized. The following instructions and handouts were given: diet, activity, medication list and follow up instructions provided to patient. Home health set up and patient provided walker. Discontinued lines and drains: PICC line discontinued and catheter intact. Patient discharged to Home w/services withFamily Membervia Wheelchair
== END 2020-12-31 13:58 | disposition home health service (06) | DRG 342 ==
LOC: ER 18:15 → ED HOLD 12-10 00:10 → 4 NORTH 12-10 01:11
PROVIDERS: ADMIT Internal Medicine; ATTEND Internal Medicine
PROC: 02HV33Z Insertion of Infusion Device into Superior Vena Cava, Percutaneous Approach (ICD-10-PCS; 2020-12-15)
PROC: 0DTJ0ZZ Resection of Appendix, Open Approach (ICD-10-PCS; principal; 2020-12-24 09:30)
DX: K46.0 Unspecified abdominal hernia with obstruction, without gangrene (principal); I24.8 Other forms of acute ischemic heart disease; I16.0 Hypertensive urgency; E78.00 Pure hypercholesterolemia, unspecified; E78.5 Hyperlipidemia, unspecified; R77.8 Other specified abnormalities of plasma proteins; Z20.822 Contact with and (suspected) exposure to COVID-19; I10 Essential (primary) hypertension; Z82.49 Family history of ischemic heart disease and other diseases of the circulatory system; Z86.73 Personal history of transient ischemic attack (TIA), and cerebral infarction without residual deficits; Z87.891 Personal history of nicotine dependence; Z90.49 Acquired absence of other specified parts of digestive tract; M19.90 Unspecified osteoarthritis, unspecified site; Z88.0 Allergy status to penicillin; Z88.7 Allergy status to serum and vaccine
CPT/HCPCS: 36415; 36569; 71045; 74018; 74021; 74022; 74177; 74250; 76000; 80048; 80053; 80061; 81001; 83605; 83690; 83735; 84100; 84478; 84484; 85007; 85025; 85027; 87086; 87426; 88304; 93005; 93306; 96374; 96375; A4314; A4930; A6253; A6402; C9113; J0330; J0360; J0610; J0694; J0780; J1100; J1644; J2270; J2370; J2405; J2704; J3010; J3475; J3480; J3490; J7030; J7120; Q9967; U0003; U0005; 97110-GP; 97116-GP; 97530-GP; 97535-GO; 99285-25; G0378

== ENCOUNTER → 2021-03-29 | Outpatient (CLI) | payer MEDICARE ==
[~2021-03-29] MED LIST changes: +ASPI-886 PO; +CONTRAST GIVEN. MC PRN; +IOHEXOL 240 MG/ML 50ML VIAL. PO ONE; +IOHEXOL 300 MG/ML 100ML VIAL. IV ONE; +PANT20TA2 PO
--- NOTE | 2021-03-29 17:58 | KCIC ---
CT abdomen pelvis with contrast dated 03/29/2021. COMPARISON: None. Clinical data indication: Diarrhea. TECHNIQUE: Contiguous axial imaging the abdomen pelvis performed following the intravenous administration of 89 cc Omnipaque 300. One or more of the following individualized dose reduction techniques were utilized for this examinat ion: 1. Automated exposure control 2. Adjustment of the mA and/or kV according to patient size 3. Use of iterative reconstruction technique FINDINGS: There are mildly dilated fluid-filled loops of small bowel throughout. There is some feculent materia l within distal small bowel loops. No definite transition point. Colon is relatively collapsed. There is scattered diverticula. No paracolonic inflammatory changes. Liver is homogeneous. No apparent hepatic mass. Intrahepatic and extra hepatic biliary tree are mildl y prominent but likely age appropriate. Gallbladder surgically absent. Spleen is normal in size. Pancreas is somewhat atrophic. Adrenal glands and kidneys are unremarkable. No hydronephrosis. Abdominal aorta is normal in caliber. There are diffuse atherosclerotic calcifications. No retroperit ellsworth or mesenteric adenopathy. No significant ascites. Images of pelvis show mildly distended urinary bladder. Calcified uterine fibroids. Trace amount of f ree pelvic fluid. No pelvic adenopathy. Bone window show no acute findings. Multilevel spondylosis. IMPRESSION: 1. Dilated fluid-filled loops of small bowel with some feculent material in small bowel loops distall y. This could be related to generalized enteritis or ileus. No definite transition point to suggest o bstruction. Correlate clinically. 2. Small amount of free pelvic fluid, nonspecific. 3. Otherwise no acute findings. Electronically signed by: Efrain Azar MD (03/29/2021 5:56 PM) [facility]
== END ==
LOC: KCIC CT 13:45
PROVIDERS: ATTEND Internal Medicine Gastroenterology
DX: R19.7 Diarrhea, unspecified (principal); D25.9 Leiomyoma of uterus, unspecified; K86.89 Other specified diseases of pancreas; N32.89 Other specified disorders of bladder; M47.817 Spondylosis without myelopathy or radiculopathy, lumbosacral region; Z90.49 Acquired absence of other specified parts of digestive tract; Z87.898 Personal history of other specified conditions
CPT/HCPCS: 74177; 82565; Q9966; Q9967

== ENCOUNTER 2021-04-30 09:53 | Inpatient (IN) | payer MEDICARE, OTHER ==
[~2021-04-30] VITALS: Ht 157.5 cm; Wt 52.9 kg
[~2021-04-30 09:53] MED LIST changes: -CONTRAST GIVEN. MC PRN; -IOHEXOL 240 MG/ML 50ML VIAL. PO ONE; -IOHEXOL 300 MG/ML 100ML VIAL. IV ONE
--- NOTE | 2021-04-30 10:42 | ED.ADGEN ---
Past Medical History Past Medical History: CVA, High Cholesterol, Hypertension Past Surgical History: Cholecystectomy, Tonsillectomy Smoking Status: Former Smoker Alcohol Use: None Drug Use: None General Adult EDM: Chief Complaint: DIARRHEA HPI: HPI: Patient is a 86 year old female coming in via EMS. Patient is a poor historian but states he has had diarrhea and vomiting for the past few months. Patient is unable to identify any particular reason she called EMS today. States she has seen her primary care provider for the diarrhea but has not been prescribed any medications. Patient states she has had good intake of fluids and water but has decreased intake of food. States the diarrhea is nonbloody. Per chart review patient was admitted about 1 month ago for a SBO. Patient denies any abdominal distention. States she feels like she is dehydrated. Review of Systems: Review of Systems: All other systems within normal limits except for as noted in the HPI Current Medications: Current Medications Medications (Trade) Dose Ordered Sig/Amy Start Time Stop Time Status Last Admin Dose Admin Acetaminophen (Tylenol) 650 mg PRN Q4HRS PRN 04/30/21 14:30 05/01/21 14:29 Fentanyl Citrate (Fentanyl 2ml Vial) 50 mcg PRN Q1HR PRN 04/30/21 14:30 05/01/21 14:29 Iohexol (Omnipaque 300 Mg/ml) 75 ml 1X ONCE 04/30/21 13:00 04/30/21 13:01 DC 04/30/21 13:07 75 ML Ondansetron HCl (Zofran) 4 mg PRN Q8HRS PRN 04/30/21 14:30 05/01/21 14:29 Sodium Chloride 1,000 ml @ 75 mls/hr [id number] 04/30/21 14:30 05/01/21 14:29 Allergies: Allergies: Allergies Coded Allergies Type Severity Reaction Last Updated Verified Penicillins Allergy Intermediate 01/12/18 No influenza virus vaccine, specific Allergy Intermediate 01/12/18 No Physical Exam: PE: Constitutional: Well developed, well nourished, no acute distress, non-toxic appearance. [] HENT: Normocephalic, atraumatic, bilateral external ears normal, nose normal. [] Eyes: PERRLA, conjunctiva normal, no discharge. [] Neck: No rigidity, supple, no stridor. [] Cardiovascular: Regular rate and rhythm, brisk cap refill [] Lungs & Thorax: Non labored symmetric respirations, no tachypnea or respiratory distress [] Abdomen: Soft, nondistended. Skin: Warm, dry, no erythema, no rash. Skin tenting [] Back: Unremarkable Extremities: No deformities, range of motion grossly intact, no lower extremity edema [] Neurologic: Alert and oriented X 3, no focal deficits noted. [] Psychologic: Affect normal, judgement normal, mood normal. [] Current Patient Data: Labs: Laboratory Tests Test 04/30/21 10:45 04/30/21 11:48 04/30/21 12:25 04/30/21 13:30 Lactic Acid Level 1.3 mmol/L (0.4-2.0) Urine Collection Type Unknown Urine Color Yellow Urine Clarity Clear Urine pH 5.5 (<5.0-8.0) Urine Specific [place] <=1.005 (1.000-1.030) Urine Protein Negative mg/dL (NEG-TRACE) Urine Glucose (UA) Negative mg/dL (NEG) Urine Ketones (Stick) Negative mg/dL (NEG) Urine Blood Negative (NEG) Urine Nitrite Negative (NEG) Urine Bilirubin Negative (NEG) Urine Urobilinogen Dipstick 0.2 mg/dL (0.2 mg/dL) Urine Leukocyte Esterase Trace (NEG) Urine RBC 0 /HPF (0-2) Urine WBC 1-4 /HPF (0-4) Urine Squamous Epithelial Cells Mod /LPF Urine Bacteria Few /HPF (0-FEW) Urine Hyaline Casts Few /HPF Urine Mucus Slight /LPF White Blood Count 5.0 x10^3/uL (4.0-11.0) Red Blood Count 4.13 x10^6/uL (3.50-5.40) Hemoglobin 11.8 g/dL (12.0-15.5) L Hematocrit 36.3 % (36.0-47.0) Mean Corpuscular Volume 88 fL (79-100) Mean Corpuscular Hemoglobin 29 pg (25-35) Mean Corpuscular Hemoglobin Concent 33 g/dL (31-37) Red Cell Distribution Width 14.9 % (11.5-14.5) H Platelet Count 95 x10^3/uL (140-400) L Neutrophils (%) (Auto) 85 % (31-73) H Lymphocytes (%) (Auto) 11 % (24-48) L Monocytes (%) (Auto) 4 % (0-9) Eosinophils (%) (Auto) 0 % (0-3) Basophils (%) (Auto) 0 % (0-3) Neutrophils # (Auto) 4.3 x10^3/uL (1.8-7.7) Lymphocytes # (Auto) 0.6 x10^3/uL (1.0-4.8) L Monocytes # (Auto) 0.2 x10^3/uL (0.0-1.1) Eosinophils # (Auto) 0.0 x10^3/uL (0.0-0.7) Basophils # (Auto) 0.0 x10^3/uL (0.0-0.2) Platelet Estimate Decreased (ADEQUATE) Large Platelets Few Sodium Level 140 mmol/L (136-145) Potassium Level 3.4 mmol/L (3.5-5.1) L Chloride Level 104 mmol/L (98-107) Carbon Dioxide Level 25 mmol/L (21-32) Anion Gap 11 (6-14) Blood Urea Nitrogen 13 mg/dL (7-20) Creatinine 0.9 mg/dL (0.6-1.0) Estimated GFR (Cockcroft-Gault) 71.5 BUN/Creatinine Ratio 14 (6-20) Glucose Level 91 mg/dL (70-99) Calcium Level 8.5 mg/dL (8.5-10.1) Magnesium Level 1.8 mg/dL (1.8-2.4) Total Bilirubin 0.4 mg/dL (0.2-1.0) Aspartate Amino Transferase (AST) 15 U/L (15-37) Alanine Aminotransferase (ALT) 17 U/L (14-59) Alkaline Phosphatase 46 U/L (46-116) NN-Urn-I-Type Natriuretic Peptide 168 pg/mL (0-449) Total Protein 7.1 g/dL (6.4-8.2) Albumin 3.3 g/dL (3.4-5.0) L Albumin/Globulin Ratio 0.9 (1.0-1.7) L Lipase 86 U/L (73-393) Troponin I High Sensitivity 25 ng/L (4-50) Laboratory Tests 1/18/22 12:25 Laboratory Tests 04/30/21 12:25 Vital Signs: Vital Signs Date Time Temp Pulse Resp B/P (MAP) Pulse Ox O2 Delivery O2 Flow Rate FiO2 04/30/21 11:41 88 109/69 (82) 99 Room Air 04/30/21 10:17 98.4 18 98.4 EKG: EKG: [] Heart Score: C/O Chest Pain: No Risk Factors: Risk Factors: DM, Current or recent (<one month) smoker, HTN, HLP, family history of CAD, obesity. Risk Scores: Score 0 - 3: 2.5% MACE over next 6 weeks - Discharge Home Score 4 - 6: 20.3% MACE over next 6 weeks - Admit for Clinical Observation Score 7 - 10: 72.7% MACE over next 6 weeks - Early Invasive Strategies Radiology/Procedures: Radiology/Procedures: [facility] [address] [place] [address] IMAGING REPORT Signed PATIENT: OMAR LYON ACCOUNT: [id number] : 1935 LOCATION: ER AGE: 86 SEX: F EXAM STATUS: REG ER ORD. PHYSICIAN: NEELA CROOKS MD REASON: vomiting PROCEDURE: CT ABD PELV W/ IV CONTRST ONLY CT scan of the abdomen and pelvis with contrast 04/30/2021 CLINICAL HISTORY: Vomiting. TECHNIQUE: After the intravenous administration of 75 cc of Omnipaque 300 only, contiguous, 5 mm axial sections were obtained through the abdomen and pelvis. One or more of the following individualized dose reduction techniques were utilized for this study: 1. Automated exposure control. 2. Adjustment of the mA and/or kV according to patient size. 3. Use of iterative reconstruction technique. FINDINGS: Comparison study is dated 03/29/2021. Images through the lung bases demonstrate mild cardiomegaly. Minimal dependent subsegmental atelectasis is seen bilaterally. The liver, spleen, pancreas, adrenal glands and right kidney are within normal limits. A 7 mm rounded low-attenuation lesion is seen involving the midpole of the left kidney. This likely represents a cyst. No further imaging evaluation is recommended. Atherosclerotic calcification of the abdominal aorta is seen. The abdominal aorta tapers normally. The gallbladder is not visualized consistent with a cholecystectomy. No free fluid or free air is seen within the abdomen. Dilated air and fluid-filled small bowel loops are seen throughout the abdomen. This has increased slightly since the previous examination. A discrete transition point is not definitely seen. These findings could reflect an ileus versus a distal small bowel obstruction. Images through the pelvis demonstrate the urinary bladder distended with urine. Calcifications are seen within the pelvis consistent phleboliths. No adnexal mass is seen. No free fluid is noted. The osseous structures are unchanged. IMPRESSION: Air and fluid distention of small bowel loops are seen throughout the abdomen which could reflect an ileus versus a distal small bowel obstruction. Electronically signed by: Jose Riddle MD (04/30/2021 1:38 PM) [id number] DICTATED and SIGNED BY: JOSE RIDDLE MD DATE: 04/30/21 [id number] [] Course & Med Decision Making: Course & Med Decision Making Pertinent Labs and Imaging studies reviewed. (See chart for details) Consult placed to surgery regarding bowel obstruction, admitted to the hospitalist. NG tube placed in emergency department and confirmed with x-ray. [] Dragon Disclaimer: Dragon Disclaimer: This electronic medical record was generated, in whole or in part, using a voice recognition dictation system. Departure Departure Impression: Primary Impression: SBO (small bowel obstruction) Disposition: ADMITTED INPATIENT Admitting Physician: MARLENE Condition: STABLE Referrals: MORE MEDLEY D.O. (PCP) NEELA CROOKS MD Apr 30, 2021 10:41
[2021-04-30] MEDS ORDERED: IV NORMAL SALINE 1000ML BAG 1,000 ML IV ONE (10:45)
[2021-04-30] MEDS ORDERED: ONDANSETRON PF 4 MG/2 ML VIAL. IVP ONE (10:45)
[2021-04-30 12:22] LABS: BACTERIA,URINE FEW /HPF (0-FEW); BILIRUBIN,URINE NEGATIVE (NEG); CLARITY,URINE CLEAR; COLOR,URINE YELLOW; NITRITE,URINE NEGATIVE (NEG); PH,URINE 5.5 (<5.0-8.0); PROTEIN,URINE NEGATIVE (NEG-TRACE); RBC,URINE 0 /HPF (0-2); UROBILINOGEN,URINE 0.2 mg/dL (0.2 mg/dL)
[2021-04-30 12:23] LABS: HYALINE CASTS, URINE FEW /HPF
[2021-04-30 12:48] LABS: CALCIUM 8.5 mg/dL (8.5-10.1); CREATININE 0.9 mg/dL (0.6-1.0); GFR 71.5; POTASSIUM 3.4 mmol/L (3.5-5.1)
[2021-04-30 12:49] LABS: BASO % 0 % (0-3); EOS % 0 % (0-3); HEMATOCRIT 36.3 % (36.0-47.0); HEMOGLOBIN 11.8 g/dL (12.0-15.5); LYMPH # 0.6 x10^3/uL (1.0-4.8); LYMPH % 11 % (24-48); MEAN CORPUSCULAR HEMOGLOBIN 29 pg (25-35); MEAN CORPUSCULAR HGB CONC 33 g/dL (31-37); MEAN CORPUSCULAR VOLUME 88 fL (79-100); MONO # 0.2 x10^3/uL (0.0-1.1); MONO % 4 % (0-9); NEUT # 4.3 x10^3/uL (1.8-7.7); NEUT % 85 % (31-73); PLATELET COUNT 95 x10^3/uL (140-400); RED BLOOD COUNT 4.13 x10^6/uL (3.50-5.40); RED CELL DISTRIBUTION WIDTH 14.9 % (11.5-14.5)
[2021-04-30 12:54] LABS: ALBUMIN 3.3 g/dL (3.4-5.0); ALBUMIN/GLOBULIN RATIO 0.9 (1.0-1.7); MAGNESIUM 1.8 mg/dL (1.8-2.4); TOTAL BILIRUBIN 0.4 mg/dL (0.2-1.0); TOTAL PROTEIN 7.1 g/dL (6.4-8.2)
[2021-04-30] MEDS ORDERED: IOHEXOL 300 MG/ML 100ML VIAL. IV ONE (13:00)
[2021-04-30 13:33] LABS: PLT ESTIMATE DECREASED (ADEQUATE)
--- NOTE | 2021-04-30 13:40 | RAD ---
CT scan of the abdomen and pelvis with contrast 04/30/2021 CLINICAL HISTORY: Vomiting. TECHNIQUE: After the intravenous administration of 75 cc of Omnipaque 300 only, contiguous, 5 mm axia l sections were obtained through the abdomen and pelvis. One or more of the following individualized dose reduction techniques were utilized for this study: 1. Automated exposure control. 2. Adjustment of the mA and/or kV according to patient size. 3. Use of iterative reconstruction technique. FINDINGS: Comparison study is dated 03/29/2021. Images through the lung bases demonstrate mild cardiomegaly. Minimal dependent subsegmental atelectas is is seen bilaterally. The liver, spleen, pancreas, adrenal glands and right kidney are within normal limits. A 7 mm rounded low-attenuation lesion is seen involving the midpole of the left kidney. This likely represents a cy st. No further imaging evaluation is recommended. Atherosclerotic calcification of the abdominal aorta is seen. The abdominal aorta tapers normally. Th e gallbladder is not visualized consistent with a cholecystectomy. No free fluid or free air is seen within the abdomen. Dilated air and fluid-filled small bowel loops are seen throughout the abdomen. T his has increased slightly since the previous examination. A discrete transition point is not definit ketty seen. These findings could reflect an ileus versus a distal small bowel obstruction. Images through the pelvis demonstrate the urinary bladder distended with urine. Calcifications are se en within the pelvis consistent phleboliths. No adnexal mass is seen. No free fluid is noted. The oss eous structures are unchanged. IMPRESSION: Air and fluid distention of small bowel loops are seen throughout the abdomen which could reflect an ileus versus a distal small bowel obstruction. Electronically signed by: Jose Riddle MD (04/30/2021 1:38 PM) [id number]
[2021-04-30] MEDS ORDERED: ACETAMINOPHEN 325 MG TABLET. PO PRN (14:30)
[2021-04-30] MEDS ORDERED: ONDANSETRON PF 4 MG/2 ML VIAL. IVP PRN (14:30)
[2021-04-30] MEDS ORDERED: fentaNYL PF VIAL 100 MCG/2 ML VIAL IVP PRN (14:30)
--- NOTE | 2021-04-30 14:51 | RAD ---
XR CHEST 1V History: Reason: NG tube placement / Spl. Instructions: / History: Comparison: December 15, [address] abdomen and pelvis April 30, 2021 Findings: No consolidation or pleural effusion. Normal heart size. No pneumothorax. Interval placement enteric tube with tip below the diaphragm beyond the image. Dilated loops of bowel within the imaged upper abdomen, similar compared to recent CT. Impression: 1. Interval placement of enteric tube with tip below the diaphragm beyond the image. Electronically signed by: Ky Jefferson DO (04/30/2021 2:48 PM) [id number]
[2021-04-30 15:05] VITALS: BP 168/72
[2021-04-30] MEDS: IV NORMAL SALINE 1000ML BAG 1,000 ML IV SCH (16:06)
[2021-04-30] MEDS ORDERED: AMLO-186 PO (16:15)
--- NOTE | 2021-04-30 16:52 | HP ---
DATE OF SERVICE: 04/30/2021 ADMIT DATE: 04/30/2021 CHIEF COMPLAINT: Diarrhea. HISTORY OF PRESENT ILLNESS: The patient is a pleasant elderly female who we had in the hospital back in 12/2020. At that time, she had GI symptoms. At this time, once again, she presents with GI symptoms of diarrhea. Imaging studies are showing small-bowel obstruction. The ER doctor ordered an NG to suction. We are admitting the patient with consultation to General Surgery. PAST MEDICAL HISTORY: Previous small-bowel obstructions, stroke, hypertension, hyperlipidemia, cholecystectomy, tonsillectomy, previous tobacco abuse. ALLERGIES: PENICILLIN AND FLU VACCINE. FAMILY HISTORY: Diabetes. SOCIAL HISTORY: She does not drink, smoke or take drugs. She quit smoking. She is retired. MEDICATIONS: Reviewed, please refer to the MRAD. REVIEW OF SYSTEMS: GENERAL: No history of weight change, weakness or fevers. SKIN: No bruising, hair changes or rashes. EYES: No blurred, double or loss of vision. NOSE AND THROAT: No history of nosebleeds, hoarseness or sore throat. HEART: No history of palpitations, chest pain or shortness of breath on exertion. LUNGS: Denies cough, hemoptysis, wheezing or shortness of breath. GASTROINTESTINAL: She complains of diarrhea and abdominal pain. GENITOURINARY: No history of frequency, urgency, hesitancy or nocturia. NEUROLOGIC: Denies history of numbness, tingling, tremor or weakness. PSYCHIATRIC: No history of panic, anxiety or depression. ENDOCRINE: No history of heat or cold intolerance, polyuria or polydipsia. EXTREMITIES: Denies muscle weakness, joint pain, pain on walking or stiffness. PHYSICAL EXAMINATION: VITALS: Within normal limits and are stable. GENERAL: No apparent distress. Alert and oriented. HEENT: She has an NG tube in place. EYES: Extraocular muscles are intact, pupils are equally round and reactive to light and accommodation. MUSCULOSKELETAL: Well developed, well nourished, good range of motion. ENDOCRINE: No thyromegaly was palpated. LYMPHATICS: No cervical chain or axillary nodes were noted. HEMATOPOIETIC: No bruising. NECK: Supple, no JVD, no thyromegaly was noted. LUNGS: Clear to auscultation in all lung johnson without rhonchi or wheezing. HEART: RRR, S1, S2 present. Peripheral pulses intact, no obvious murmurs were noted. ABDOMEN: She has decreased bowel sounds. EXTREMITIES: Without any cyanosis, clubbing, or edema. Pedal pulses intact, Homans sign is negative. NEUROLOGIC: Normal speech, normal tone. A and O x 3, moves all extremities, no obvious focal deficits. PSYCHIATRIC: Normal affect, normal mood. Stable. SKIN: No ulcerations or rashes, good skin turgor, no jaundice. VASCULAR: Good capillary refill, neurovascular bundle appears to be intact. LABORATORY DATA: Electrolytes are normal except for potassium of 3.4. ASSESSMENT AND PLAN: Small-bowel obstruction and hypokalemia. The patient has been admitted. We will consult General Surgery. NG suctioning. Gentle IV fluids. Rule out COVID-19. Trend labs. P.rkelin Remy. FLOYD/BENJAMIN DR: FLOYD/kiarra TID: [id number]
[2021-04-30] MEDS: AA 4.25 %/CALCIUM/LYTES/D5W 1,000 ML IV SCH (16:57)
[2021-04-30 19:25] VITALS: BP 122/49
[2021-04-30 23:45] VITALS: BP 123/63
[2021-05-01 03:27] VITALS: BP 123/67
[2021-05-01] MEDS: IV NORMAL SALINE 1000ML BAG 1,000 ML IV SCH (03:50)
[2021-05-01] MEDS: AA 4.25 %/CALCIUM/LYTES/D5W 1,000 ML IV SCH (05:20)
[2021-05-01 07:12] LABS: BASO % 1 % (0-3); EOS % 1 % (0-3); HEMATOCRIT 32.6 % (36.0-47.0); HEMOGLOBIN 10.6 g/dL (12.0-15.5); LYMPH # 0.9 x10^3/uL (1.0-4.8); LYMPH % 26 % (24-48); MEAN CORPUSCULAR HEMOGLOBIN 29 pg (25-35); MEAN CORPUSCULAR HGB CONC 33 g/dL (31-37); MEAN CORPUSCULAR VOLUME 89 fL (79-100); MONO # 0.4 x10^3/uL (0.0-1.1); MONO % 10 % (0-9); NEUT # 2.3 x10^3/uL (1.8-7.7); NEUT % 62 % (31-73); PLATELET COUNT 95 x10^3/uL (140-400); RED BLOOD COUNT 3.67 x10^6/uL (3.50-5.40); RED CELL DISTRIBUTION WIDTH 14.8 % (11.5-14.5); WHITE BLOOD COUNT 3.6 x10^3/uL (4.0-11.0)
[2021-05-01 07:14] VITALS: BP 125/59
[2021-05-01 07:18] LABS: ALBUMIN 2.9 g/dL (3.4-5.0); ALBUMIN/GLOBULIN RATIO 0.9 (1.0-1.7); CALCIUM 8.3 mg/dL (8.5-10.1); CREATININE 0.8 mg/dL (0.6-1.0); GFR 81.9; POTASSIUM 4.5 mmol/L (3.5-5.1); TOTAL BILIRUBIN 0.3 mg/dL (0.2-1.0); TOTAL PROTEIN 6.3 g/dL (6.4-8.2)
--- NOTE | 2021-05-01 09:35 | RAD ---
XR ABDOMEN 2V History: Reason: SBO / Spl. Instructions: / History: Technique: Supine and upright views of the abdomen. Comparison: CT April 30, 2021 Findings: Degraded evaluation of the lungs. No pneumoperitoneum. Enteric tube with tip projecting over the mid gastric body. Dilated loops of small bowel throughout the abdomen, decreased compared to prior. Persi stently moderately dilated small bowel within the right lower abdomen. Air and stool scattered throug hout the colon. Dystrophic calcifications projecting over the abdomen and pelvis. Contrast noted with in the urinary bladder demonstrating multiple urinary bladder diverticula. Multilevel lumbar spondylo sis. Impression: 1. Dilated loops of small bowel throughout the abdomen, decreased compared to prior CT. 2. Multiple urinary bladder diverticulum. Electronically signed by: Ky Jefferson DO (05/01/2021 9:32 AM) [id number]
--- NOTE | 2021-05-01 10:40 | NUR ---
SW following. Discussed with RN, pt from home with family, room air, NPO. Surgery following. RN advised no SW needs at this time. SW will continue to follow.
--- NOTE | 2021-05-01 11:04 | PDOC ---
[employer] PROGRESS NOTE Date of Service DOS: DATE: 05/01/21 TIME: 11:02 Chief Complaint Chief Complaint Small Bowel Obstruction Previous SBO previous CVA HTN HLD previous tobacco abuse History of Present Illness History of Present Illness The patient is a pleasant elderly female who we had in the hospital back in 12/2020. At that time, she had GI symptoms. At this time, once again, she presents with GI symptoms of diarrhea. Imaging studies are showing small-bowel obstruction. The ER doctor ordered an NG to suction. We are admitting the patient with consultation to General Surgery. 05/01/21: Patient seen and examined. Chart reviewed. Discussed with RN. Patient awake, alert, and communicative; sitting upright in bed. Patient tolerating NG tube well. Vitals/I&O Vitals/I&O: Vital Signs Date Time Temp Pulse Resp B/P (MAP) Pulse Ox O2 Delivery O2 Flow Rate FiO2 05/01/21 08:00 Room Air 05/01/21 07:14 97.3 71 18 125/59 (81) 98 97.3 I & O 04/30/21 04/30/21 05/01/21 15:00 23:00 07:00 Intake Total 1000 ml 100 ml 0 ml Balance 1000 ml 100 ml 0 ml Physical Exam Lungs: Clear Labs Labs: Laboratory Tests Test 04/30/21 11:48 04/30/21 12:25 04/30/21 13:30 05/01/21 06:05 Urine Collection Type Unknown Urine Color Yellow Urine Clarity Clear Urine pH 5.5 (<5.0-8.0) Urine Specific [place] <=1.005 (1.000-1.030) Urine Protein Negative mg/dL (NEG-TRACE) Urine Glucose (UA) Negative mg/dL (NEG) Urine Ketones (Stick) Negative mg/dL (NEG) Urine Blood Negative (NEG) Urine Nitrite Negative (NEG) Urine Bilirubin Negative (NEG) Urine Urobilinogen Dipstick 0.2 mg/dL (0.2 mg/dL) Urine Leukocyte Esterase Trace (NEG) Urine RBC 0 /HPF (0-2) Urine WBC 1-4 /HPF (0-4) Urine Squamous Epithelial Cells Mod /LPF Urine Bacteria Few /HPF (0-FEW) Urine Hyaline Casts Few /HPF Urine Mucus Slight /LPF White Blood Count 5.0 x10^3/uL (4.0-11.0) 3.6 x10^3/uL (4.0-11.0) Red Blood Count 4.13 x10^6/uL (3.50-5.40) 3.67 x10^6/uL (3.50-5.40) Hemoglobin 11.8 g/dL (12.0-15.5) 10.6 g/dL (12.0-15.5) Hematocrit 36.3 % (36.0-47.0) 32.6 % (36.0-47.0) Mean Corpuscular Volume 88 fL (79-100) 89 fL (79-100) Mean Corpuscular Hemoglobin 29 pg (25-35) 29 pg (25-35) Mean Corpuscular Hemoglobin Concent 33 g/dL (31-37) 33 g/dL (31-37) Red Cell Distribution Width 14.9 % (11.5-14.5) 14.8 % (11.5-14.5) Platelet Count 95 x10^3/uL (140-400) 95 x10^3/uL (140-400) Neutrophils (%) (Auto) 85 % (31-73) 62 % (31-73) Lymphocytes (%) (Auto) 11 % (24-48) 26 % (24-48) Monocytes (%) (Auto) 4 % (0-9) 10 % (0-9) Eosinophils (%) (Auto) 0 % (0-3) 1 % (0-3) Basophils (%) (Auto) 0 % (0-3) 1 % (0-3) Neutrophils # (Auto) 4.3 x10^3/uL (1.8-7.7) 2.3 x10^3/uL (1.8-7.7) Lymphocytes # (Auto) 0.6 x10^3/uL (1.0-4.8) 0.9 x10^3/uL (1.0-4.8) Monocytes # (Auto) 0.2 x10^3/uL (0.0-1.1) 0.4 x10^3/uL (0.0-1.1) Eosinophils # (Auto) 0.0 x10^3/uL (0.0-0.7) 0.0 x10^3/uL (0.0-0.7) Basophils # (Auto) 0.0 x10^3/uL (0.0-0.2) 0.0 x10^3/uL (0.0-0.2) Platelet Estimate Decreased (ADEQUATE) Large Platelets Few Sodium Level 140 mmol/L (136-145) 139 mmol/L (136-145) Potassium Level 3.4 mmol/L (3.5-5.1) 4.5 mmol/L (3.5-5.1) Chloride Level 104 mmol/L (98-107) 105 mmol/L (98-107) Carbon Dioxide Level 25 mmol/L (21-32) 26 mmol/L (21-32) Anion Gap 11 (6-14) 8 (6-14) Blood Urea Nitrogen 13 mg/dL (7-20) 18 mg/dL (7-20) Creatinine 0.9 mg/dL (0.6-1.0) 0.8 mg/dL (0.6-1.0) Estimated GFR (Cockcroft-Gault) 71.5 81.9 BUN/Creatinine Ratio 14 (6-20) 23 (6-20) Glucose Level 91 mg/dL (70-99) 108 mg/dL (70-99) Calcium Level 8.5 mg/dL (8.5-10.1) 8.3 mg/dL (8.5-10.1) Magnesium Level 1.8 mg/dL (1.8-2.4) Total Bilirubin 0.4 mg/dL (0.2-1.0) 0.3 mg/dL (0.2-1.0) Aspartate Amino Transf (AST/SGOT) 15 U/L (15-37) 15 U/L (15-37) Alanine Aminotransferase (ALT/SGPT) 17 U/L (14-59) 16 U/L (14-59) Alkaline Phosphatase 46 U/L (46-116) 41 U/L (46-116) SA-Nfe-C-Type Natriuretic Peptide 168 pg/mL (0-449) Total Protein 7.1 g/dL (6.4-8.2) 6.3 g/dL (6.4-8.2) Albumin 3.3 g/dL (3.4-5.0) 2.9 g/dL (3.4-5.0) Albumin/Globulin Ratio 0.9 (1.0-1.7) 0.9 (1.0-1.7) Lipase 86 U/L (73-393) Troponin I High Sensitivity 25 ng/L (4-50) Assessment and Plan Assessmemt and Plan ASSESSMENT: 1. SBO 2. previous SBO 3. previous CVA 4. HTN 5. HLD 6. previous tobacco abuse PLAN: 1. Continue NG tube and suction 2. NPO 3. IV fluids 4. Await GI input. 5. Continue PPN for caloric intake. 6. KUB will likely be ordered for tomorrow to assess SBO 7. DVT prophylaxis 8. Continue home medications 9. Full code Comment Review of Relevant I have reviewed the following items mekhi (where applicable) has been applied. Medications: Current Medications Medications (Trade) Dose Ordered Sig/Amy Route PRN Reason Start Time Stop Time Status Last Admin Dose Admin Iohexol (Omnipaque 300 Mg/ml) 75 ml 1X ONCE IV 04/30/21 13:00 04/30/21 13:01 DC 04/30/21 13:07 Sodium Chloride 1,000 ml @ 75 mls/hr [id number] IV 04/30/21 14:30 05/01/21 14:29 04/30/21 16:06 Amino Acids/ Electrolytes/ Dextrose 1,000 ml @ 80 mls/hr [id number] IV 04/30/21 17:00 05/01/21 05:20 Justifications for Admission Other Justification FRANCO NAPOLES III DO May 01, 2021 11:04
[2021-05-01 11:15] VITALS: BP 123/63
--- NOTE | 2021-05-01 12:35 | PDOC2 ---
CONSULT Date of Consult Date of Consult DATE: 05/01/21 TIME: 12:32 Reason for Consult Reason for Consult: SBO Referring Physician Referring Physician: Dr. Cortés Identification/Chief Complaint Chief Complaint N/V/D Source Source: Chart review, Patient History of Present Illness Reason for Visit: 86 yo F with c/o abd pain, N/V and reported diarrhea. Pt previous underwent appendectomy few months ago for SBO. She is seen in her hospital room and appears comfortable. She denies complaints and notes passing loose stools and flatus. Past Medical History Cardiovascular: HTN, Hyperlipidemia Pulmonary: No pertinent hx CENTRAL NERVOUS SYSTEM: CVA Musculoskeletal: Osteoarthritis Endocrine: No pertinent hx Past Surgical History Past Surgical History: Appendectomy, Cholecystectomy, Tonsillectomy Family History Family History: Hypertension Social History No ALCOHOL: none Drugs: None Current Medications Current Medications Current Medications Sodium Chloride 1,000 ml @ 1,000 mls/hr 1X ONCE IV Last administered on 04/30/21at 10:50; Start 04/30/21 at 10:45; Stop 04/30/21 at 11:44; Status DC Ondansetron HCl (Zofran) 4 mg 1X ONCE IVP Last administered on 04/30/21at 10:50; Start 04/30/21 at 10:45; Stop 04/30/21 at 10:46; Status DC Iohexol (Omnipaque 300 Mg/ml) 75 ml 1X ONCE IV Last administered on 04/30/21at 13:07; Start 04/30/21 at 13:00; Stop 04/30/21 at 13:01; Status DC Ondansetron HCl (Zofran) 4 mg PRN Q8HRS PRN IVP NAUSEA/VOMITING; Start 04/30/21 at 14:30; Stop 05/01/21 at 14:29 Fentanyl Citrate (Fentanyl 2ml Vial) 50 mcg PRN Q1HR PRN IVP PAIN; Start 04/30/21 at 14:30; Stop 05/01/21 at 14:29 Sodium Chloride 1,000 ml @ 75 mls/hr [id number] IV Last administered on 04/30/21at 16:06; Start 04/30/21 at 14:30; Stop 05/01/21 at 14:29 Acetaminophen (Tylenol) 650 mg PRN Q4HRS PRN PO FEVER > 100.3'F; Start 04/30/21 at 14:30; Stop 05/01/21 at 14:29 Amino Acids/ Electrolytes/ Dextrose 1,000 ml @ 80 mls/hr [id number] IV Last administered on 05/01/21at 05:20; Start 04/30/21 at 17:00 Active Scripts Active Reported Amlodipine Besylate 5 Mg Tablet 5 Mg PO QHS Allergies Allergies: Coded Allergies: Penicillins (Unverified Allergy, Intermediate, 01/12/18) influenza virus vaccine, specific (Unverified Allergy, Intermediate, 01/12/18) ROS Gastrointestinal: Yes Nausea, Yes Vomiting, Yes Abdominal Pain, Yes Diarrhea Physical Exam General: Alert, Oriented X3, Cooperative, No acute distress HEENT: Atraumatic, Other (NGT with clear aspirate) Lungs: Normal air movement Abdomen: Soft, No tenderness Extremities: No clubbing, No cyanosis Skin: No rashes, No breakdown Neuro: Normal speech, Sensation intact Psych/Mental Status: Mental status NL, Mood NL Vitals VITALS Vital Signs Date Time Temp Pulse Resp B/P (MAP) Pulse Ox O2 Delivery O2 Flow Rate FiO2 05/01/21 11:15 98.6 77 18 123/63 (83) 96 Room Air 98.6 Labs Labs Laboratory Tests Test 04/30/21 10:45 04/30/21 11:48 04/30/21 12:25 04/30/21 13:30 Lactic Acid Level 1.3 mmol/L (0.4-2.0) Urine Collection Type Unknown Urine Color Yellow Urine Clarity Clear Urine pH 5.5 (<5.0-8.0) Urine Specific [place] <=1.005 (1.000-1.030) Urine Protein Negative mg/dL (NEG-TRACE) Urine Glucose (UA) Negative mg/dL (NEG) Urine Ketones (Stick) Negative mg/dL (NEG) Urine Blood Negative (NEG) Urine Nitrite Negative (NEG) Urine Bilirubin Negative (NEG) Urine Urobilinogen Dipstick 0.2 mg/dL (0.2 mg/dL) Urine Leukocyte Esterase Trace (NEG) Urine RBC 0 /HPF (0-2) Urine WBC 1-4 /HPF (0-4) Urine Squamous Epithelial Cells Mod /LPF Urine Bacteria Few /HPF (0-FEW) Urine Hyaline Casts Few /HPF Urine Mucus Slight /LPF White Blood Count 5.0 x10^3/uL (4.0-11.0) Red Blood Count 4.13 x10^6/uL (3.50-5.40) Hemoglobin 11.8 g/dL (12.0-15.5) Hematocrit 36.3 % (36.0-47.0) Mean Corpuscular Volume 88 fL (79-100) Mean Corpuscular Hemoglobin 29 pg (25-35) Mean Corpuscular Hemoglobin Concent 33 g/dL (31-37) Red Cell Distribution Width 14.9 % (11.5-14.5) Platelet Count 95 x10^3/uL (140-400) Neutrophils (%) (Auto) 85 % (31-73) Lymphocytes (%) (Auto) 11 % (24-48) Monocytes (%) (Auto) 4 % (0-9) Eosinophils (%) (Auto) 0 % (0-3) Basophils (%) (Auto) 0 % (0-3) Neutrophils # (Auto) 4.3 x10^3/uL (1.8-7.7) Lymphocytes # (Auto) 0.6 x10^3/uL (1.0-4.8) Monocytes # (Auto) 0.2 x10^3/uL (0.0-1.1) Eosinophils # (Auto) 0.0 x10^3/uL (0.0-0.7) Basophils # (Auto) 0.0 x10^3/uL (0.0-0.2) Platelet Estimate Decreased (ADEQUATE) Large Platelets Few Sodium Level 140 mmol/L (136-145) Potassium Level 3.4 mmol/L (3.5-5.1) Chloride Level 104 mmol/L (98-107) Carbon Dioxide Level 25 mmol/L (21-32) Anion Gap 11 (6-14) Blood Urea Nitrogen 13 mg/dL (7-20) Creatinine 0.9 mg/dL (0.6-1.0) Estimated GFR (Cockcroft-Gault) 71.5 BUN/Creatinine Ratio 14 (6-20) Glucose Level 91 mg/dL (70-99) Calcium Level 8.5 mg/dL (8.5-10.1) Magnesium Level 1.8 mg/dL (1.8-2.4) Total Bilirubin 0.4 mg/dL (0.2-1.0) Aspartate Amino Transf (AST/SGOT) 15 U/L (15-37) Alanine Aminotransferase (ALT/SGPT) 17 U/L (14-59) Alkaline Phosphatase 46 U/L (46-116) EB-Poo-X-Type Natriuretic Peptide 168 pg/mL (0-449) Total Protein 7.1 g/dL (6.4-8.2) Albumin 3.3 g/dL (3.4-5.0) Albumin/Globulin Ratio 0.9 (1.0-1.7) Lipase 86 U/L (73-393) Troponin I High Sensitivity 25 ng/L (4-50) Test 05/01/21 06:05 White Blood Count 3.6 x10^3/uL (4.0-11.0) Red Blood Count 3.67 x10^6/uL (3.50-5.40) Hemoglobin 10.6 g/dL (12.0-15.5) Hematocrit 32.6 % (36.0-47.0) Mean Corpuscular Volume 89 fL (79-100) Mean Corpuscular Hemoglobin 29 pg (25-35) Mean Corpuscular Hemoglobin Concent 33 g/dL (31-37) Red Cell Distribution Width 14.8 % (11.5-14.5) Platelet Count 95 x10^3/uL (140-400) Neutrophils (%) (Auto) 62 % (31-73) Lymphocytes (%) (Auto) 26 % (24-48) Monocytes (%) (Auto) 10 % (0-9) Eosinophils (%) (Auto) 1 % (0-3) Basophils (%) (Auto) 1 % (0-3) Neutrophils # (Auto) 2.3 x10^3/uL (1.8-7.7) Lymphocytes # (Auto) 0.9 x10^3/uL (1.0-4.8) Monocytes # (Auto) 0.4 x10^3/uL (0.0-1.1) Eosinophils # (Auto) 0.0 x10^3/uL (0.0-0.7) Basophils # (Auto) 0.0 x10^3/uL (0.0-0.2) Sodium Level 139 mmol/L (136-145) Potassium Level 4.5 mmol/L (3.5-5.1) Chloride Level 105 mmol/L (98-107) Carbon Dioxide Level 26 mmol/L (21-32) Anion Gap 8 (6-14) Blood Urea Nitrogen 18 mg/dL (7-20) Creatinine 0.8 mg/dL (0.6-1.0) Estimated GFR (Cockcroft-Gault) 81.9 BUN/Creatinine Ratio 23 (6-20) Glucose Level 108 mg/dL (70-99) Calcium Level 8.3 mg/dL (8.5-10.1) Total Bilirubin 0.3 mg/dL (0.2-1.0) Aspartate Amino Transf (AST/SGOT) 15 U/L (15-37) Alanine Aminotransferase (ALT/SGPT) 16 U/L (14-59) Alkaline Phosphatase 41 U/L (46-116) Total Protein 6.3 g/dL (6.4-8.2) Albumin 2.9 g/dL (3.4-5.0) Albumin/Globulin Ratio 0.9 (1.0-1.7) Laboratory Tests Test 04/30/21 13:30 05/01/21 06:05 Troponin I High Sensitivity 25 ng/L (4-50) White Blood Count 3.6 x10^3/uL (4.0-11.0) Red Blood Count 3.67 x10^6/uL (3.50-5.40) Hemoglobin 10.6 g/dL (12.0-15.5) Hematocrit 32.6 % (36.0-47.0) Mean Corpuscular Volume 89 fL (79-100) Mean Corpuscular Hemoglobin 29 pg (25-35) Mean Corpuscular Hemoglobin Concent 33 g/dL (31-37) Red Cell Distribution Width 14.8 % (11.5-14.5) Platelet Count 95 x10^3/uL (140-400) Neutrophils (%) (Auto) 62 % (31-73) Lymphocytes (%) (Auto) 26 % (24-48) Monocytes (%) (Auto) 10 % (0-9) Eosinophils (%) (Auto) 1 % (0-3) Basophils (%) (Auto) 1 % (0-3) Neutrophils # (Auto) 2.3 x10^3/uL (1.8-7.7) Lymphocytes # (Auto) 0.9 x10^3/uL (1.0-4.8) Monocytes # (Auto) 0.4 x10^3/uL (0.0-1.1) Eosinophils # (Auto) 0.0 x10^3/uL (0.0-0.7) Basophils # (Auto) 0.0 x10^3/uL (0.0-0.2) Sodium Level 139 mmol/L (136-145) Potassium Level 4.5 mmol/L (3.5-5.1) Chloride Level 105 mmol/L (98-107) Carbon Dioxide Level 26 mmol/L (21-32) Anion Gap 8 (6-14) Blood Urea Nitrogen 18 mg/dL (7-20) Creatinine 0.8 mg/dL (0.6-1.0) Estimated GFR (Cockcroft-Gault) 81.9 BUN/Creatinine Ratio 23 (6-20) Glucose Level 108 mg/dL (70-99) Calcium Level 8.3 mg/dL (8.5-10.1) Total Bilirubin 0.3 mg/dL (0.2-1.0) Aspartate Amino Transf (AST/SGOT) 15 U/L (15-37) Alanine Aminotransferase (ALT/SGPT) 16 U/L (14-59) Alkaline Phosphatase 41 U/L (46-116) Total Protein 6.3 g/dL (6.4-8.2) Albumin 2.9 g/dL (3.4-5.0) Albumin/Globulin Ratio 0.9 (1.0-1.7) Images Images CT with concern for SBO KUB today demonstrates improvement Assessment/Plan Assessment/Plan SBO vs ileus, possible enteritis will clamp NGT and try clears with repeat KUB in AM Thanks for consult! BELINDA GUAJARDO MD May 01, 2021 12:35
[2021-05-01 14:53] VITALS: BP 137/62
--- NOTE | 2021-05-01 15:15 | NUR ---
iv site tender and swollen. attempted to restart iv x2-unsuccessful. nursing excavating supervisor notified
[2021-05-01] MEDS: cefTRIAXone IV Push 1 GM VIAL. IVP SCH ×2 (15:29→22:35)
[2021-05-01 19:00] VITALS: BP 121/55
[2021-05-01 23:00] VITALS: BP 102/42
[2021-05-02] MEDS: AA 4.25 %/CALCIUM/LYTES/D5W 1,000 ML IV SCH ×3 (02:22→22:46)
[2021-05-02 03:00] VITALS: BP 117/46
[2021-05-02 07:15] VITALS: BP 144/65
--- NOTE | 2021-05-02 08:27 | RAD ---
XR ABDOMEN 2V History: Reason: SBO / Spl. Instructions: / History: Technique: Upright and supine views the abdomen. Comparison: May 01, 2021 Findings: Stable enteric tube. Imaged lung bases are unremarkable. No pneumoperitoneum. Decreased small bowel d istention compared to prior. Persistent mildly dilated air-filled loops of small bowel throughout the abdomen. Dystrophic calcifications throughout the abdomen. Multilevel lumbar spondylosis. Impression: 1. Decreased small bowel distention compared to prior. Electronically signed by: Ky Jefferson DO (05/02/2021 8:25 AM) [id number]
--- NOTE | 2021-05-02 09:11 | PDOC ---
ARCHIE NULL SENIOR PRODUCT MARKETING MANAGER 05/02/21 0911: SURGICAL PROGRESS NOTE DATE: 05/02/21 TIME: 09:10 Subjective having loose stools, + flatus no n/v taking clears no abdominal pain Vital Signs Vital Signs Date Time Temp Pulse Resp B/P (MAP) Pulse Ox O2 Delivery O2 Flow Rate FiO2 05/02/21 07:15 98.6 78 18 144/65 (91) 96 Room Air 98.6 I&O Intake and Output 05/02/21 07:00 Output Total 150 ml Balance -150 ml Output Urine Total 150 ml # Voids 1 General: Alert, Oriented X3, Cooperative HEENT: Other (ng in place) Abdomen: Soft, No tenderness Labs Laboratory Tests Test 04/30/21 10:45 04/30/21 11:48 04/30/21 12:25 04/30/21 13:30 Lactic Acid Level 1.3 mmol/L (0.4-2.0) Urine Collection Type Unknown Urine Color Yellow Urine Clarity Clear Urine pH 5.5 (<5.0-8.0) Urine Specific [place] <=1.005 (1.000-1.030) Urine Protein Negative mg/dL (NEG-TRACE) Urine Glucose (UA) Negative mg/dL (NEG) Urine Ketones (Stick) Negative mg/dL (NEG) Urine Blood Negative (NEG) Urine Nitrite Negative (NEG) Urine Bilirubin Negative (NEG) Urine Urobilinogen Dipstick 0.2 mg/dL (0.2 mg/dL) Urine Leukocyte Esterase Trace (NEG) Urine RBC 0 /HPF (0-2) Urine WBC 1-4 /HPF (0-4) Urine Squamous Epithelial Cells Mod /LPF Urine Bacteria Few /HPF (0-FEW) Urine Hyaline Casts Few /HPF Urine Mucus Slight /LPF White Blood Count 5.0 x10^3/uL (4.0-11.0) Red Blood Count 4.13 x10^6/uL (3.50-5.40) Hemoglobin 11.8 g/dL (12.0-15.5) Hematocrit 36.3 % (36.0-47.0) Mean Corpuscular Volume 88 fL (79-100) Mean Corpuscular Hemoglobin 29 pg (25-35) Mean Corpuscular Hemoglobin Concent 33 g/dL (31-37) Red Cell Distribution Width 14.9 % (11.5-14.5) Platelet Count 95 x10^3/uL (140-400) Neutrophils (%) (Auto) 85 % (31-73) Lymphocytes (%) (Auto) 11 % (24-48) Monocytes (%) (Auto) 4 % (0-9) Eosinophils (%) (Auto) 0 % (0-3) Basophils (%) (Auto) 0 % (0-3) Neutrophils # (Auto) 4.3 x10^3/uL (1.8-7.7) Lymphocytes # (Auto) 0.6 x10^3/uL (1.0-4.8) Monocytes # (Auto) 0.2 x10^3/uL (0.0-1.1) Eosinophils # (Auto) 0.0 x10^3/uL (0.0-0.7) Basophils # (Auto) 0.0 x10^3/uL (0.0-0.2) Platelet Estimate Decreased (ADEQUATE) Large Platelets Few Sodium Level 140 mmol/L (136-145) Potassium Level 3.4 mmol/L (3.5-5.1) Chloride Level 104 mmol/L (98-107) Carbon Dioxide Level 25 mmol/L (21-32) Anion Gap 11 (6-14) Blood Urea Nitrogen 13 mg/dL (7-20) Creatinine 0.9 mg/dL (0.6-1.0) Estimated GFR (Cockcroft-Gault) 71.5 BUN/Creatinine Ratio 14 (6-20) Glucose Level 91 mg/dL (70-99) Calcium Level 8.5 mg/dL (8.5-10.1) Magnesium Level 1.8 mg/dL (1.8-2.4) Total Bilirubin 0.4 mg/dL (0.2-1.0) Aspartate Amino Transf (AST/SGOT) 15 U/L (15-37) Alanine Aminotransferase (ALT/SGPT) 17 U/L (14-59) Alkaline Phosphatase 46 U/L (46-116) BE-Tbo-O-Type Natriuretic Peptide 168 pg/mL (0-449) Total Protein 7.1 g/dL (6.4-8.2) Albumin 3.3 g/dL (3.4-5.0) Albumin/Globulin Ratio 0.9 (1.0-1.7) Lipase 86 U/L (73-393) Troponin I High Sensitivity 25 ng/L (4-50) Test 05/01/21 06:05 White Blood Count 3.6 x10^3/uL (4.0-11.0) Red Blood Count 3.67 x10^6/uL (3.50-5.40) Hemoglobin 10.6 g/dL (12.0-15.5) Hematocrit 32.6 % (36.0-47.0) Mean Corpuscular Volume 89 fL (79-100) Mean Corpuscular Hemoglobin 29 pg (25-35) Mean Corpuscular Hemoglobin Concent 33 g/dL (31-37) Red Cell Distribution Width 14.8 % (11.5-14.5) Platelet Count 95 x10^3/uL (140-400) Neutrophils (%) (Auto) 62 % (31-73) Lymphocytes (%) (Auto) 26 % (24-48) Monocytes (%) (Auto) 10 % (0-9) Eosinophils (%) (Auto) 1 % (0-3) Basophils (%) (Auto) 1 % (0-3) Neutrophils # (Auto) 2.3 x10^3/uL (1.8-7.7) Lymphocytes # (Auto) 0.9 x10^3/uL (1.0-4.8) Monocytes # (Auto) 0.4 x10^3/uL (0.0-1.1) Eosinophils # (Auto) 0.0 x10^3/uL (0.0-0.7) Basophils # (Auto) 0.0 x10^3/uL (0.0-0.2) Sodium Level 139 mmol/L (136-145) Potassium Level 4.5 mmol/L (3.5-5.1) Chloride Level 105 mmol/L (98-107) Carbon Dioxide Level 26 mmol/L (21-32) Anion Gap 8 (6-14) Blood Urea Nitrogen 18 mg/dL (7-20) Creatinine 0.8 mg/dL (0.6-1.0) Estimated GFR (Cockcroft-Gault) 81.9 BUN/Creatinine Ratio 23 (6-20) Glucose Level 108 mg/dL (70-99) Calcium Level 8.3 mg/dL (8.5-10.1) Total Bilirubin 0.3 mg/dL (0.2-1.0) Aspartate Amino Transf (AST/SGOT) 15 U/L (15-37) Alanine Aminotransferase (ALT/SGPT) 16 U/L (14-59) Alkaline Phosphatase 41 U/L (46-116) Total Protein 6.3 g/dL (6.4-8.2) Albumin 2.9 g/dL (3.4-5.0) Albumin/Globulin Ratio 0.9 (1.0-1.7) Assessment/Plan sbo xr improved, having stools, dc ng, advance diet visit, charting 10-15 mins Justicifation of Admission Dx: Justifications for Admission: Justification of Admission Dx: Yes BELINDA GUAJARDO MD 05/02/211921: SURGICAL PROGRESS NOTE Assessment/Plan Pt seen and examined. Agree with Ms. Null's note Pt feels better, leatha PO abd soft, ND, NTTP cont ADAT ARCHIE NULL SENIOR PRODUCT MARKETING MANAGER May 02, 2021 09:11 BELINDA GUAJARDO MD May 02, 2021 19:22
--- NOTE | 2021-05-02 09:45 | PDOC ---
[employer] PROGRESS NOTE Date of Service DOS: DATE: 05/02/21 TIME: 09:41 Chief Complaint Chief Complaint Small Bowel Obstruction Previous SBO previous CVA HTN HLD previous tobacco abuse History of Present Illness History of Present Illness The patient is a pleasant elderly female who we had in the hospital back in 12/2020. At that time, she had GI symptoms. At this time, once again, she presents with GI symptoms of diarrhea. Imaging studies are showing small-bowel obstruction. The ER doctor ordered an NG to suction. We are admitting the patient with consultation to General Surgery. 05/01/21: Patient seen and examined. Chart reviewed. Discussed with RN. Patient awake, alert, and communicative; sitting upright in bed. Patient tolerating NG tube well. 05/02/21 Patient seen and examined Chart reviewed Discussed with RN Patient seating upright and drinking clear liquids at time of encounter NG tube is clamped at time of exam. Patient states she is passing flatus and some BM. Vitals/I&O Vitals/I&O: Vital Signs Date Time Temp Pulse Resp B/P (MAP) Pulse Ox O2 Delivery O2 Flow Rate FiO2 05/02/21 07:15 98.6 78 18 144/65 (91) 96 Room Air 98.6 I & O 05/01/21 05/01/21 05/02/21 15:00 23:00 07:00 Output Total 150 ml Balance -150 ml Physical Exam General: Alert, Oriented X3, Cooperative Lungs: Clear Abdomen: Soft, No tenderness Extremities: No clubbing, No cyanosis Skin: No rashes, No breakdown Assessment and Plan Assessmemt and Plan ASSESSMENT: 1. SBO 2. previous SBO 3. previous CVA 4. HTN 5. HLD 6. previous tobacco abuse PLAN: 1. Per General Surgery, discontinue NG tube due to passing flatus and improved X-ray 2. Continue clear fluids PO as tolerated 3. IV fluids 4. Continue PPN for caloric intake. 5. DVT prophylaxis 6. Continue home medications 7. Full code Comment Review of Relevant I have reviewed the following items mekhi (where applicable) has been applied. Medications: Current Medications Medications (Trade) Dose Ordered Sig/Amy Route PRN Reason Start Time Stop Time Status Last Admin Dose Admin Ceftriaxone Sodium (Rocephin) 1 gm Q24H IVP 05/01/21 15:00 05/01/21 22:35 Justifications for Admission Other Justification FRANCO NAPOLES III DO May 02, 2021 09:45
[2021-05-02 10:48] VITALS: BP 120/55
[2021-05-02 14:54] VITALS: BP 107/46
--- NOTE | 2021-05-02 15:51 | NUR ---
tolerated full liquid diet without complaints of pain, nausea or vomiting. she would like a sandwich. called to advance diet.
[2021-05-02 19:00] VITALS: BP 102/39
[2021-05-02] MEDS: cefTRIAXone IV Push 1 GM VIAL. IVP SCH (20:34)
[2021-05-02 23:05] VITALS: BP 115/52
[2021-05-03 03:00] VITALS: BP 121/60
[2021-05-03 07:30] VITALS: BP 136/55
[2021-05-03] MEDS: AA 4.25 %/CALCIUM/LYTES/D5W 1,000 ML IV SCH (07:30)
--- NOTE | 2021-05-03 08:51 | PDOC ---
SURGICAL PROGRESS NOTE DATE: 05/03/21 TIME: 08:50 Subjective resting tolerating diet having loose stools Vital Signs Vital Signs Date Time Temp Pulse Resp B/P (MAP) Pulse Ox O2 Delivery O2 Flow Rate FiO2 05/03/21 03:00 98.4 76 14 121/60 (80) 98 Room Air 98.4 I&O Intake and Output 05/03/21 07:00 Intake Total 600 ml Balance 600 ml Intake Oral 600 ml # Voids 4 General: Alert, Oriented X3, Cooperative Abdomen: Soft, No tenderness Assessment/Plan ok to dc home visit, chart time 10-15 min Justicifation of Admission Dx: Justifications for Admission: Justification of Admission Dx: Yes ARCHIE NULL APRN May 03, 2021 08:51
[2021-05-03] MEDS ORDERED: LACTOBACILLUS RHAMNOSUS GG 1 CAPSULE. PO SCH (09:00)
--- NOTE | 2021-05-03 10:18 | PDOC ---
[employer] PROGRESS NOTE Date of Service DOS: DATE: 05/03/21 TIME: 10:14 Chief Complaint Chief Complaint Small Bowel Obstruction Previous SBO previous CVA HTN HLD previous tobacco abuse History of Present Illness History of Present Illness The patient is a pleasant elderly female who we had in the hospital back in 12/2020. At that time, she had GI symptoms. At this time, once again, she presents with GI symptoms of diarrhea. Imaging studies are showing small-bowel obstruction. The ER doctor ordered an NG to suction. We are admitting the patient with consultation to General Surgery. 05/03/21: Patient seen and examined. Chart reviewed. Discussed with RN. Patient sitting upright on side of bed. Patient eating well. NG tube has been removed. Patient is desiring discharge to home. 05/02/21 Patient seen and examined Chart reviewed Discussed with RN Patient seating upright and drinking clear liquids at time of encounter NG tube is clamped at time of exam. Patient states she is passing flatus and some BM. 05/01/21: Patient seen and examined. Chart reviewed. Discussed with RN. Patient awake, alert, and communicative; sitting upright in bed. Patient tolerating NG tube well. Vitals/I&O Vitals/I&O: Vital Signs Date Time Temp Pulse Resp B/P (MAP) Pulse Ox O2 Delivery O2 Flow Rate FiO2 05/03/21 08:00 Room Air 05/03/21 07:30 98.1 65 16 136/55 (82) 99 98.1 I & O 05/02/21 05/02/21 05/03/21 15:00 23:00 07:00 Intake Total 360 ml 240 ml Balance 360 ml 240 ml Physical Exam General: Alert, Oriented X3, Cooperative, No acute distress Lungs: Clear Abdomen: Soft, No tenderness Extremities: No clubbing, No cyanosis Skin: No rashes, No breakdown Assessment and Plan Assessmemt and Plan ASSESSMENT: 1. SBO 2. previous SBO 3. previous CVA 4. HTN 5. HLD 6. previous tobacco abuse PLAN: 1. Discharge to home later today. 2. Continue GI soft diet through discharge time. 3. Continue IV Rocephin through discharge time. 4. Continue DVT prophylaxis through discharge time. 5. Continue home medications 6. Full code Comment Review of Relevant I have reviewed the following items mekhi (where applicable) has been applied. Medications: Current Medications Medications (Trade) Dose Ordered Sig/Amy Route PRN Reason Start Time Stop Time Status Last Admin Dose Admin Lactobacillus Rhamnosus (Culturelle) 1 cap BID PO 05/03/21 09:00 05/03/21 08:39 Justifications for Admission Other Justification FRANCO NAPOLES III DO May 03, 2021 10:18
--- NOTE | 2021-05-03 10:38 | NUR ---
SW following. Discussed with RN, discharge order for home with self care. RN advised no SW needs at this time.
[2021-05-03 11:15] VITALS: BP 123/60
--- NOTE | 2021-05-03 12:03 | NUR ---
Discharge Note: OMAR LYON [address] [place] [address] Discharge instructions and discharge home medications reviewed with Patient and a copy given. All questions have been answered and understanding verbalized. The following instructions and handouts were given: Diet, activity, medication list and follow up instructions provided to patient. Discontinued lines and drains: Peripheral IV discontinued and catheter intact. Patient discharged to Home or Self Care with Friend via Wheelchair
--- NOTE | 2021-05-03 13:03 | DS ---
DATE OF DISCHARGE: 05/03/2021 ADMITTING DIAGNOSIS: Small-bowel obstruction. DISCHARGE DIAGNOSIS: Resolving small-bowel obstruction. CONSULTS: General Surgery. PROCEDURES: None. HOSPITAL COURSE: The patient is a pleasant elderly female who presented with small-bowel obstruction. She was admitted with an NG tube. We suctioned her gut for about 2 days, then clamped the NG tube and rechecked KUB. The small-bowel obstruction appears to have resolved. We have advanced her diet. She is doing well. Today, I saw and examined her. We are going to discharge to home. DISPOSITION: Home. ACTIVITY: As tolerated. DIET: Low sodium. DISCHARGE MEDICATIONS: Please see the MRAD. TOTAL TIME: 34 minutes. KIRAN/JESSICA DR: Jan TID: [id number]
== END 2021-05-03 12:04 | disposition home or self-care (01) | DRG 390 ==
LOC: ER 09:53 → 4 NORTH 13:45
PROVIDERS: ADMIT Internal Medicine; ATTEND Internal Medicine
PROC: 0D9670Z Drainage of Stomach with Drainage Device, Via Natural or Artificial Opening (ICD-10-PCS; principal; 2021-04-30)
DX: K56.609 Unspecified intestinal obstruction, unspecified as to partial versus complete obstruction (principal); E78.00 Pure hypercholesterolemia, unspecified; E78.5 Hyperlipidemia, unspecified; E87.6 Hypokalemia; I10 Essential (primary) hypertension; Z20.822 Contact with and (suspected) exposure to COVID-19; Z82.49 Family history of ischemic heart disease and other diseases of the circulatory system; Z83.3 Family history of diabetes mellitus; Z86.73 Personal history of transient ischemic attack (TIA), and cerebral infarction without residual deficits; Z87.891 Personal history of nicotine dependence; Z90.49 Acquired absence of other specified parts of digestive tract; M19.90 Unspecified osteoarthritis, unspecified site; Z88.0 Allergy status to penicillin; Z88.8 Allergy status to other drugs, medicaments and biological substances
CPT/HCPCS: 36415; 71045; 74021; 74177; 80053; 81001; 83605; 83690; 83735; 83880; 84484; 85025; 87086; 87186; 96361; 96374; J0696; J2405; J3490; J7030; Q9967; 99285-25; G0378

== ENCOUNTER 2021-07-09 13:40 | Emergency (ER) | payer OTHER ==
[~2021-07-09] VITALS: Ht 157.5 cm; Wt 56.4 kg
[~2021-07-09 13:40] MED LIST changes: +ACET325T21 PO; +AMLO-186 PO
--- NOTE | 2021-07-09 15:03 | RAD ---
Single AP view of the chest. Comparison: 04/30/2019. Indication: Chest pain and lower extremity swelling Findings: The heart is not enlarged. There is no pneumothorax or effusion. No air space or interstitial diseas e. Impression: 1. No acute cardiopulmonary process. Electronically signed by: Rocky Hamilton MD (07/09/2021 3:01 PM) [facility]
[2021-07-09 15:20] LABS: BACTERIA,URINE FEW /HPF (0-FEW)
--- NOTE | 2021-07-09 15:41 | RAD ---
INDICATION: Reason: BLE swelling / Spl. Instructions: / History: COMPARISON: None. TECHNIQUE: Grayscale, color and doppler ultrasound images were obtained of the bilateral lower extrem ity venous vasculature. RIGHT: No thrombus identified in the common femoral vein, femoral vein, popliteal vein or visualized calf ve ins. LEFT: No thrombus identified in the common femoral vein, femoral vein, popliteal vein or visualized calf ve ins. IMPRESSION: * No thrombus identified in deep venous system of bilateral lower extremities. Electronically signed by: Jose Li MD (07/09/2021 3:38 PM) [id number]
--- NOTE | 2021-07-09 15:53 | EKG ---
[facility] [address] [place] [address] Test Date: 2021-07-09 Test Time: 15:08:05 Pat Name: OMAR LYON Department: Room: Gender: F [employer] Portal Developer: : [id number] Requested By: TYRON NEUMANN Order Number: [id number] Reading MD: Dominic Flores Measurements Intervals [place] Rate: 68 P: 36 FL: 130 QRS: -44 QRSD: 92 T: 27 QT: 438 QTc: 471 Interpretive Statements SINUS RHYTHM ATRIAL PREMATURE COMPLEX(ES) ABNORMAL LEFT AXIS DEVIATION LOW LIMB LEAD VOLTAGE LEFT ANTERIOR FASCICULAR BLOCK INCOMPLETE RIGHT BUNDLE BRANCH BLOCK ABNORMAL ECG Electronically Signed On 07-13-2021 21:43:08 CDT by Dominic Flores
[2021-07-09 15:57] LABS: BASO # 0.1 x10^3/uL (0.0-0.2); BASO % 2 % (0-3); EOS # 0.1 x10^3/uL (0.0-0.7); EOS % 2 % (0-3); HEMATOCRIT 29.6 % (36.0-47.0); HEMOGLOBIN 9.6 g/dL (12.0-15.5); LYMPH # 1.4 x10^3/uL (1.0-4.8); LYMPH % 38 % (24-48); MEAN CORPUSCULAR HEMOGLOBIN 29 pg (25-35); MEAN CORPUSCULAR HGB CONC 32 g/dL (31-37); MEAN CORPUSCULAR VOLUME 90 fL (79-100); MONO # 0.2 x10^3/uL (0.0-1.1); MONO % 7 % (0-9); NEUT # 1.9 x10^3/uL (1.8-7.7); NEUT % 52 % (31-73); PLATELET COUNT 108 x10^3/uL (140-400); RED BLOOD COUNT 3.28 x10^6/uL (3.50-5.40); RED CELL DISTRIBUTION WIDTH 16.2 % (11.5-14.5); WHITE BLOOD COUNT 3.7 x10^3/uL (4.0-11.0)
[2021-07-09 16:00] VITALS: BP 174/77
[2021-07-09 16:31] LABS: CREATININE 0.9 mg/dL (0.6-1.0); GFR 71.5; POTASSIUM 3.3 mmol/L (3.5-5.1)
[2021-07-09 16:44] LABS: ALBUMIN 3.5 g/dL (3.4-5.0); MAGNESIUM 1.5 mg/dL (1.8-2.4); TOTAL BILIRUBIN 0.3 mg/dL (0.2-1.0); TOTAL PROTEIN 7.1 g/dL (6.4-8.2)
--- NOTE | 2021-07-09 17:50 | PHYS DOC ---
Past Medical History Past Medical History: CVA, High Cholesterol, Hypertension Additional Past Medical Histor: chronic N/V Past Surgical History: Cholecystectomy, Tonsillectomy Smoking Status: Former Smoker Alcohol Use: None Drug Use: None General Adult EDM: Chief Complaint: LOWER EXTREMITY SWELLING HPI: HPI: Patient is a 86 year old female with history of hypertension, high cholesterol, CVA, presenting today complaining of bilateral lower extremity swelling, symptoms for 3 days. Patient denies any chest pain, shortness of breath, or pain to bilateral lower extremities. Denies any trauma. Review of Systems: Review of Systems: Constitutional: Denies fever or chills. [] Eyes: Denies change in visual acuity. [] HENT: Denies nasal congestion or sore throat. [] Respiratory: Denies cough or shortness of breath. [] Cardiovascular: Denies chest pain or edema. [] GI: Denies abdominal pain, nausea, vomiting, bloody stools or diarrhea. [] : Denies dysuria. [] Musculoskeletal: Reports bilateral lower extremity swelling. Denies back pain o] Integument: Denies rash. [] Neurologic: Denies headache, focal weakness or sensory changes. [] Psychiatric: Denies depression or anxiety. [] Heart Score: C/O Chest Pain: N/A Risk Factors: Risk Factors: DM, Current or recent (<one month) smoker, HTN, HLP, family history of CAD, obesity. Risk Scores: Score 0 - 3: 2.5% MACE over next 6 weeks - Discharge Home Score 4 - 6: 20.3% MACE over next 6 weeks - Admit for Clinical Observation Score 7 - 10: 72.7% MACE over next 6 weeks - Early Invasive Strategies Allergies: Allergies: Allergies Coded Allergies Type Severity Reaction Last Updated Verified Penicillins Allergy Intermediate 01/12/18 No influenza virus vaccine, specific Allergy Intermediate 01/12/18 No Physical Exam: PE: Constitutional: Well developed, well nourished, no acute distress, non-toxic appearance. [] HENT: Normocephalic, atraumatic, bilateral external ears normal, oropharynx moist, no oral exudates, nose normal. [] Eyes: PERRLA, EOMI, conjunctiva normal, no discharge. [] Neck: Normal range of motion, no tenderness, supple, no stridor. [] Cardiovascular:Heart rate regular rhythm, no murmur [] Lungs & Thorax: Bilateral breath sounds clear to auscultation [] Abdomen: Bowel sounds normal, soft, no tenderness, no masses, no pulsatile masses. [] Skin: Warm, dry, no erythema, no rash. [] Back: No tenderness, no CVA tenderness. [] Extremities: No tenderness, no cyanosis, no clubbing, ROM intact, +2 bilateral lower extremity nonpitting edema Neurologic: Alert and oriented X 3, normal motor function, normal sensory function, no focal deficits noted. [] Psychologic: Affect normal, judgement normal, mood normal. [] Current Patient Data: Labs: Laboratory Tests Test 07/09/21 14:50 07/09/21 15:40 Urine Collection Type Unknown Urine Color (Auto) Colorless Urine Turbidity Clear Urine pH (Auto) 5.0 (<5.0-8.0) Urine Specific [place] 1.005 (1.000-1.030) Urine Protein (Auto) Negative mg/dL (Negative) Urine Glucose (Auto)(UA) Negative mg/dL (Negative) Urine Ketones (Auto) Negative mg/dL (Negative) Urine Blood (Auto) Negative (Negative) Urine Nitrite Negative (Negative) Urine Bilirubin (Auto) Negative (Negative) Urine Urobilinogen (Auto) Normal mg/dL (Normal) Urine Leukocyte Esterase (Auto) Negative (Negative) Urine RBC 1-2 /HPF (0-2) Urine WBC 1-4 /HPF (0-4) Urine Squamous Epithelial Cells Few /LPF Urine Bacteria Few /HPF (0-FEW) White Blood Count 3.7 x10^3/uL (4.0-11.0) L Red Blood Count 3.28 x10^6/uL (3.50-5.40) L Hemoglobin 9.6 g/dL (12.0-15.5) L Hematocrit 29.6 % (36.0-47.0) L Mean Corpuscular Volume 90 fL (79-100) Mean Corpuscular Hemoglobin 29 pg (25-35) Mean Corpuscular Hemoglobin Concent 32 g/dL (31-37) Red Cell Distribution Width 16.2 % (11.5-14.5) H Platelet Count 108 x10^3/uL (140-400) L Neutrophils (%) (Auto) 52 % (31-73) Lymphocytes (%) (Auto) 38 % (24-48) Monocytes (%) (Auto) 7 % (0-9) Eosinophils (%) (Auto) 2 % (0-3) Basophils (%) (Auto) 2 % (0-3) Neutrophils # (Auto) 1.9 x10^3/uL (1.8-7.7) Lymphocytes # (Auto) 1.4 x10^3/uL (1.0-4.8) Monocytes # (Auto) 0.2 x10^3/uL (0.0-1.1) Eosinophils # (Auto) 0.1 x10^3/uL (0.0-0.7) Basophils # (Auto) 0.1 x10^3/uL (0.0-0.2) Sodium Level 146 mmol/L (136-145) H Potassium Level 3.3 mmol/L (3.5-5.1) L Chloride Level 108 mmol/L (98-107) H Carbon Dioxide Level 29 mmol/L (21-32) Anion Gap 9 (6-14) Blood Urea Nitrogen 7 mg/dL (7-20) Creatinine 0.9 mg/dL (0.6-1.0) Estimated GFR (Cockcroft-Gault) 71.5 BUN/Creatinine Ratio 8 (6-20) Glucose Level 76 mg/dL (70-99) Calcium Level 9.0 mg/dL (8.5-10.1) Magnesium Level 1.5 mg/dL (1.8-2.4) L Total Bilirubin 0.3 mg/dL (0.2-1.0) Aspartate Amino Transferase (AST) 21 U/L (15-37) Alanine Aminotransferase (ALT) 12 U/L (14-59) L Alkaline Phosphatase 56 U/L (46-116) Troponin I High Sensitivity 15 ng/L (4-50) GP-Xgh-[id number]-Type Natriuretic Peptide 830 pg/mL (0-449) H Total Protein 7.1 g/dL (6.4-8.2) Albumin 3.5 g/dL (3.4-5.0) Albumin/Globulin Ratio 1.0 (1.0-1.7) Laboratory Tests 07/09/21 15:40 Laboratory Tests 07/09/21 15:40 Vital Signs: Vital Signs Date Time Temp Pulse Resp B/P (MAP) Pulse Ox O2 Delivery O2 Flow Rate FiO2 07/09/21 14:25 97.9 84 18 154/78 (103) 100 Room Air 97.9 EKG: EK interpreted by Dr. Mendez sinus rhythm heart rate 68 no STEMI [] Radiology/Procedures: Radiology/Procedures: []PROCEDURE: VENOUS LOWER EXT BILATERAL INDICATION: Reason: BLE swelling / Spl. Instructions: / History: COMPARISON: None. TECHNIQUE: Grayscale, color and doppler ultrasound images were obtained of the bilateral lower extremity venous vasculature. RIGHT: No thrombus identified in the common femoral vein, femoral vein, popliteal vein or visualized calf veins. LEFT: No thrombus identified in the common femoral vein, femoral vein, popliteal vein or visualized calf veins. IMPRESSION: * No thrombus identified in deep venous system of bilateral lower extremities. Electronically signed by: Laura Dawn MD (07/09/2021 3:38 PM) [id number] DICTATED and SIGNED BY: LAURA DAWN MD DATE: 07/09/21 1534 PROCEDURE: PORTABLE CHEST 1V Single AP view of the chest. Comparison: 04/30/2019. Indication: Chest pain and lower extremity swelling Findings: The heart is not enlarged. There is no pneumothorax or effusion. No air space or interstitial disease. Impression: 1. No acute cardiopulmonary process. Electronically signed by: Rocky Hamilton MD (07/09/2021 3:01 PM) [facility] DICTATED and SIGNED BY: ROCKY HAMILTON MD DATE: 07/09/21 1501 Course & Med Decision Making: Course & Med Decision Making Pertinent Labs and Imaging studies reviewed. (See chart for details) This is a 86-year-old female patient presented to the ED today with bilateral lower extremity swelling, symptoms for 3 days. Vitals on arrival to the ED temperature 97.8, heart rate 84, respiration 18 on room air, blood pressure 154/78, O2 sats 100% on room air. Venous Dopplers of bilateral lower extremities are negative. Chest x-ray is negative. CBC with a WBC of 3.7, patient has history of low WBC. CMP with potassium of 3.3, patient was given oral potassium replacement in the ED, BNP 830. I gave her 1 dose of hydrochlorothiazide 12.5 mg. Recommended compression stockings. Recommended elevation of bilateral lower extremities. Dragon Disclaimer: Dragon Disclaimer: This electronic medical record was generated, in whole or in part, using a voice recognition dictation system. Departure Departure Impression: Primary Impression: Edema, lower extremity Disposition: HOME / SELF CARE / HOMELESS Condition: STABLE Referrals: MORE MEDLEY D.O. (PCP) follow up next week Patient Instructions: Edema, [id number] Additional Instructions: You were evaluated in the emergency room for lower extremity swelling. We highly recommend you elevate your extremities. Wear compression stockings during the day. Follow-up with your primary care doctor in 1 week TYRON NEUMANN APRN Jul 09, 2021 17:50
[2021-07-09] MEDS ORDERED: POTASSIUM CHLORIDE 20 MEQ TABLET.ER. PO ONE (18:00)
[2021-07-09] MEDS ORDERED: hydroCHLOROthiazide 12.5 MG CAPSULE PO ONE (18:00)
== END 2021-07-09 18:26 | disposition home or self-care (01) ==
LOC: ER 13:40
DX: R60.0 Localized edema (principal); E78.00 Pure hypercholesterolemia, unspecified; I10 Essential (primary) hypertension; Z86.73 Personal history of transient ischemic attack (TIA), and cerebral infarction without residual deficits; Z87.891 Personal history of nicotine dependence; Z88.0 Allergy status to penicillin; Z88.7 Allergy status to serum and vaccine
CPT/HCPCS: 36415; 71045; 80053; 81001; 83735; 83880; 84484; 85025; 93005; 93970; 99285-25